=== PATIENT | female | born 1945 | race Caucasian/White ===

== ENCOUNTER → 2016-05-19 | Outpatient (CLI) | payer MEDICARE, OTHER ==
[~2016-05-19] MED LIST: AC500T PO; ACET-2041 PO; ACET325T49 PO; ACHD5005 PO; CHOL2000 PO; CHOL200035 PO; CYAN100053 IJ; CYCL10TA9 PO; DCS100C PO; EST.625T PO; EST45C VG; FLC1T PO; HDR10T PO; HSCO125 PO; HYDR-3454 PO; HYDR200T46 PO; IBP200T PO; IBP600T1 PO; IBUP-15 PO; KCL 10% PO; KCL10CCR PO; LD5PT TOP; MEGA RED 300 MG PO; METO50TA7 PO; MTX2.5T PO; NF-ESOM40C; NF-METANX PO; OMEP40CA36 PO; PANT40TA PO; POLY17PO23 PO; POTA20LI2 PO; POTA40LI PO; POTASSIUM; PRD5T PO; PROP1TAB77 PO; REMICADE IV; SIMV40TA2; TRIA1CAP PO; TRIA1TAB3 PO; VITAMIN B12; [UNRECOGNIZED DRUG - REMARK]
--- NOTE | 2016-05-19 17:33 | Diagnostic Imaging Report ---
Multiplanar multisequence MRI of the thoracic spine performed without intravenous contrast. INDICATION: Chronic back pain. FINDINGS: The alignment at the posterior spinal line is satisfactory. There is a prominent disc herniation seen at C6/C7 noted in the lower cervical spine and only included on the sagittal images. It probably results in moderate spinal canal stenosis without significant cord compression. This can be better evaluated with C-spine MRI if needed. In the thoracic spine, no vertebral body fracture is seen. No suspicious bone marrow lesion is noted. There is disc desiccation at all levels with no significant disc height loss at any level seen. At T2/T3 level, there is a right paracentral disc protrusion with no spinal canal stenosis. There is mild central disc herniation at T4/T5 level also without spinal canal stenosis. At T11/T12, there is a mild disc bulge with mild central canal stenosis reducing the AP dimension of the spinal canal to 9.9 mm. No spinal cord compression is seen, however. The neural foramina are patent. The spinal cord has normal caliber, contour and signal. IMPRESSION: Generally mild disc degenerative changes in the thoracic spine with mild spinal canal stenosis at T11/T12 level. No significant spinal canal stenosis is seen in the thoracic spine otherwise. There is suggestion of moderate spinal canal stenosis, however, seen at C6/C7 in the visualized portions of the lower cervical spine. Dictated by: Dictated on workstation # [id number]
== END ==
LOC: RAD 15:10
PROVIDERS: ATTEND Orthopaedic Surgery
DX: M54.6 Pain in thoracic spine (principal)
CPT/HCPCS: 72146

== ENCOUNTER 2016-06-23 12:52 | Outpatient (RCR) | payer MEDICARE, OTHER | END 2016-06-25 13:50 | disposition home or self-care (01) | PROVIDERS: ATTEND Physician Assistant | DX: M54.6 Pain in thoracic spine (principal) ==

== ENCOUNTER → 2017-02-03 | Outpatient (CLI) | payer MEDICARE, OTHER ==
--- NOTE | 2017-02-04 20:01 | Diagnostic Imaging Report ---
Bilateral screening mammogram 2D views with tomosynthesis. The current study was also evaluated with a Computer Aided Detection (CAD) system. INDICATION: Screening. No current complaints stated on the questionnaire. COMPARISON: 02/03/16 FINDINGS: The breasts are composed of heterogeneously dense parenchyma which may decrease mammographic sensitivity. Allowing for technique and positional differences, no suspicious change is seen. IMPRESSION: No significant change. ACR BI-RADS Category 2: Benign findings. Result letter will be mailed to the patient. Note: At least 10% of breast cancer is not imaged by mammography. Dictated by: Dictated on workstation # [id number]
== END ==
LOC: RAD 08:50
PROVIDERS: ATTEND Internal Medicine
DX: Z12.31 Encounter for screening mammogram for malignant neoplasm of breast (principal)
CPT/HCPCS: 77067

== ENCOUNTER 2017-04-15 14:42 | Outpatient (CLI) | payer MEDICARE, OTHER ==
[~2017-04-15] VITALS: Ht 156.2 cm; Wt 63.5 kg
[2017-04-15 15:58] VITALS: BP 150/80
[2017-04-15] MEDS ORDERED: DEXAMETHASONE 10 MG/ML (DECADRON) 1 ML VIAL ONE (16:03)
[2017-04-15 16:28] VITALS: BP 163/83
--- NOTE | 2017-04-17 04:15 | OPERATIVE REPORT ---
DATE OF SERVICE: 04/15/2017 DIAGNOSIS: Thoracic radiculopathy. PROCEDURE: Fluoroscopic guidance of thoracic epidural steroid injection, T7-T8. PROCEDURE IN DETAIL: After obtaining informed consent from the patient, the patient's chart was reviewed. The patient was then brought to the procedure room and placed in prone position, timeout was performed. The upper back was prepped with antiseptic solution and under fluoro guidance, patient's T7-T8 region was identified. The T7-T8 vertebral body was identified with fluoro guidance and approximately 2 mL of 1.5% lidocaine solution was used to anesthetize the skin down to the pedicle and under fluoro guidance using a 22-guage 3-1/2 inch spinal needle, this tract was anesthetized all way from the pedicle down to the intralaminar space in between T7 and T8. After this tract was anesthetized, then a 20-guage Tuohy was used and involved the same tract. Using a loss of resistance syringe, the Tuohy was then directed into the epidural space under fluoro guidance. Upon obtaining loss of resistance, the syringe was exchanged for a syringe containing radiopaque dye and secondary identification of the epidural space was then obtained. At this point, the syringe was then exchanged for a syringe containing 10 mL of dexamethasone and this was injected into the epidural space, washout was identified under fluoroscopy. Needle was then flushed with the normal saline from the loss of resistance, approximately 0.5 mL and then needle removed. Bandages were applied to all procedure sites. The patient tolerated procedure well and was taken to the recovery room in stable condition. COMPLICATIONS: None. Job ID: [id number] DocumentID: [id number] Dictated Date: 04/16/2017 19:18:13 Bridge/Structure Inspection Team Leader Date: 04/17/2017 04:14:51 Dictated By: MARGUERITE FOUNTAIN DO
== END 2017-04-15 16:29 ==
LOC: CARD 14:42
PROVIDERS: ATTEND Pain Medicine Interventional Pain Medicine
DX: M54.14 Radiculopathy, thoracic region (principal)
CPT/HCPCS: 62321

== ENCOUNTER → 2018-01-11 | Outpatient (CLI) | payer MEDICARE, OTHER ==
--- NOTE | 2018-01-11 13:23 | Diagnostic Imaging Report ---
INDICATION: Screening. TECHNIQUE: Screening digital mammography was performed bilaterally with a Computer Aided Detection (CAD) system. 3D tomosynthesis was also performed and reviewed. COMPARISON: 02/03/2017 back through 08/20/2011. FINDINGS: There are scattered fibroglandular densities bilaterally. There are vascular benign type calcifications. There is no dominant mass, spiculated lesion, or suspicious calcification identified. The skin, nipples, and axillae are unremarkable. IMPRESSION: Benign findings. ACR BI-RADS Category 2: Benign findings. Result letter will be mailed to the patient. Note: At least 10% of breast cancer is not imaged by mammography. Dictated by: Dictated on workstation # [id number]
== END ==
LOC: RAD 09:21
PROVIDERS: ATTEND Nurse Practitioner
DX: Z12.31 Encounter for screening mammogram for malignant neoplasm of breast (principal)
CPT/HCPCS: 77067

== ENCOUNTER 2018-04-08 12:03 | Outpatient (CLI) | payer MEDICARE, OTHER ==
[~2018-04-08] VITALS: Ht 156.2 cm; Wt 63.5 kg
[2018-04-08 12:20] VITALS: BP 160/73
[2018-04-08] MEDS ORDERED: NS W/KCL 40 MEQ/L 1,000 ML IV SCH (12:30)
[2018-04-08] MEDS ORDERED: NS W/KCL 20 MEQ/L 1,000 ML IV ONE ×2 (12:33→12:45)
[2018-04-08] MEDS ORDERED: NS W/KCL 20 MEQ/L 1,000 ML IV SCH (12:45)
== END 2018-04-08 15:15 | disposition home or self-care (01) ==
LOC: SDC 12:03
PROVIDERS: ATTEND Physician Assistant
DX: E87.6 Hypokalemia (principal); R51 Headache

== ENCOUNTER → 2018-04-08 | Outpatient (CLI) | payer MEDICARE, OTHER ==
--- NOTE | 2018-04-08 11:40 | Diagnostic Imaging Report ---
PROCEDURE: CT head without contrast. TECHNIQUE: Multiple contiguous axial images were obtained through the brain without the use of intravenous contrast. INDICATION: Left-sided headache. COMPARISON: Comparison is made with prior head CT from 07/07/2010. FINDINGS: Ventricles and sulci are within normal limits. No sulcal effacement, midline shift or hemorrhage is seen. There is periventricular hypodensity noted consistent with chronic microvascular ischemia. Cisterns are patent. Visualized paranasal sinuses are clear. IMPRESSION: Changes of chronic microvascular ischemia. No acute intracranial process is detected. Dictated by: Dictated on workstation # [id number]
[2018-04-08 11:47] LABS: HEMOGLOBIN 13.6 G/DL (11.5-16.0); MEAN PLATELET VOLUME 9.5 FL (7.4-10.4); RED BLOOD COUNT 4.16 10^6/uL (4.35-5.85); WHITE BLOOD COUNT 6.6 10^3/uL (4.3-11.0)
[2018-04-08 12:04] LABS: ALANINE AMINOTRANSFERASE 36 U/L (0-55); ALBUMIN 4.4 GM/DL (3.2-4.5); ALKALINE PHOSPHATASE 39 U/L (40-136); BILIRUBIN,TOTAL 0.6 MG/DL (0.1-1.0); BUN/CREATININE RATIO 11; CALCIUM 9.9 MG/DL (8.5-10.1); CARBON DIOXIDE 25 MMOL/L (21-32); CHLORIDE 92 MMOL/L (98-107); CREATININE SERUM 0.76 MG/DL (0.60-1.30); GFR ESTIMATED > 60; GLUCOSE 96 MG/DL (70-105); POTASSIUM 3.1 MMOL/L (3.6-5.0); SODIUM 129 MMOL/L (135-145); TOTAL PROTEIN 7.2 GM/DL (6.4-8.2)
== END ==
LOC: RAD 11:15
PROVIDERS: ATTEND Physician Assistant
DX: I67.82 Cerebral ischemia (principal); I77.89 Other specified disorders of arteries and arterioles
CPT/HCPCS: 36415; 70450; 80053; 85027; 85652; 86141

== ENCOUNTER 2018-10-05 10:17 | Outpatient (CLI) | payer MEDICARE, OTHER ==
[~2018-10-05] VITALS: Ht 156.2 cm; Wt 63.5 kg
[2018-10-05 10:30] VITALS: BP 121/81
[2018-10-05] MEDS ORDERED: NS IV 1000 ML 1,000 ML ONE (10:41)
[2018-10-05] MEDS ORDERED: NS IV 1000 ML 1,000 ML IV ONE (14:00)
== END 2018-10-05 13:20 | disposition home or self-care (01) ==
LOC: SDC 10:17
PROVIDERS: ATTEND Nurse Practitioner
DX: E87.1 Hypo-osmolality and hyponatremia (principal)
CPT/HCPCS: 96360; 96361

== ENCOUNTER 2018-12-14 09:11 | Outpatient (RCR) | payer MEDICARE, OTHER | END 2018-12-19 | disposition home or self-care (01) | PROVIDERS: ATTEND Internal Medicine | DX: M54.6 Pain in thoracic spine (principal); M62.830 Muscle spasm of back ==

== ENCOUNTER → 2019-01-17 | Outpatient (CLI) | payer MEDICARE, OTHER ==
--- NOTE | 2019-01-17 18:34 | Diagnostic Imaging Report ---
EXAMINATION: Digital mammogram bilateral screening. The current study was also evaluated with a Computer Aided Detection (CAD) system. 3-D tomosynthesis was also performed and reviewed. INDICATION: Screening. This study was compared to the prior exams of 01/11/2018, 02/03/2017, and 02/03/2016. At this time, there are no current complaints. FINDINGS: The fibroglandular tissue in both breasts is heterogeneously dense. This does limit the sensitivity of this exam. Overall, there does not appear to have been any significant change when compared to the prior study. No primary or secondary sign of malignancy is noted. 3D tomographic images fail to show any sign of malignancy. IMPRESSION: There is no radiographic evidence for malignancy. ACR BI-RADS Category 1: Negative. Result letter will be mailed to the patient. Note: At least 10% of breast cancer is not imaged by mammography. Dictated by: Dictated on workstation # [id number]
== END ==
LOC: RAD 09:27
PROVIDERS: ATTEND Physician Assistant
DX: Z12.31 Encounter for screening mammogram for malignant neoplasm of breast (principal)
CPT/HCPCS: 77067

== ENCOUNTER 2019-02-28 13:55 | Outpatient (RCR) | payer MEDICARE, OTHER | END 2019-03-20 | disposition home or self-care (01) | PROVIDERS: ATTEND Internal Medicine | DX: M62.89 Other specified disorders of muscle (principal); M54.6 Pain in thoracic spine ==

== ENCOUNTER → 2019-06-20 | Outpatient (RCR) | payer MEDICARE, OTHER | END | disposition home or self-care (01) | PROVIDERS: ATTEND Internal Medicine | DX: M54.6 Pain in thoracic spine (principal) ==

== ENCOUNTER 2019-09-18 12:58 | Outpatient (RCR) | payer MEDICARE, OTHER | END 2019-10-02 | disposition home or self-care (01) | PROVIDERS: ATTEND Internal Medicine | DX: M54.6 Pain in thoracic spine (principal); M06.9 Rheumatoid arthritis, unspecified; J84.10 Pulmonary fibrosis, unspecified; I10 Essential (primary) hypertension ==

== ENCOUNTER 2019-12-27 10:45 | Outpatient (RCR) | payer MEDICARE, OTHER | END 2020-01-15 | disposition home or self-care (01) | PROVIDERS: ATTEND Internal Medicine | DX: M54.6 Pain in thoracic spine (principal); M06.9 Rheumatoid arthritis, unspecified; J84.10 Pulmonary fibrosis, unspecified; I10 Essential (primary) hypertension ==

== ENCOUNTER → 2020-02-07 | Outpatient (CLI) | payer MEDICARE, OTHER ==
--- NOTE | 2020-02-07 12:15 | Diagnostic Imaging Report ---
EXAMINATION: Digital mammogram bilateral screening with CAD. INDICATION: Screening. COMPARISON: This study was compared to the prior exams of 01/17/2019, 01/11/2018, and 02/03/2017. PERSONAL HISTORY: At this time, there are no current complaints. FINDINGS: The fibroglandular tissue in both breasts is heterogeneously dense. This does limit the sensitivity of this exam. Overall, there does not appear to have been any significant change when compared to the prior study. No primary or secondary sign of malignancy is noted. IMPRESSION: There is no radiographic evidence for malignancy. ACR BI-RADS Category 1: Negative. Result letter will be mailed to the patient. Note: At least 10% of breast cancer is not imaged by mammography. Dictated by: Dictated on workstation # [id number]
== END ==
LOC: RAD 09:58
PROVIDERS: ATTEND Internal Medicine
DX: Z12.31 Encounter for screening mammogram for malignant neoplasm of breast (principal)
CPT/HCPCS: 77063; 77067

== ENCOUNTER → 2020-06-11 | Outpatient (CLI) | payer MEDICARE, OTHER ==
--- NOTE | 2020-06-11 10:15 | Diagnostic Imaging Report ---
INDICATION: 74-year-old postmenopausal female. COMPARISON: 04/08/2007 FINDINGS: AP Spine L1-L4: [BMD (g/cm2): 1.003] [T-Score: -1.6] [Z-Score: 0.1] [BMD Previous: 1.113] [BMD % Change: -9.9] LT Hip Neck: [BMD (g/cm2): 1.020] [T-Score: -0.1] [Z-Score: 1.8] LT Hip Total: [BMD (g/cm2):0.985] [T-Score:-0.2] [Z-Score: 1.6] [BMD Previous: 1.063] [BMD % Change: -7.3] RT Hip Neck: [BMD (g/cm2):1.068] [T-Score:0.2] [Z-Score:2.2] RT Hip Total: [BMD (g/cm2):1.032] [T-score:0.2] [Z-Score:2.0] [BMD Previous:1.065] [BMD % Change:-3.1] *Indicates significant change from prior examination based on 95% confidence level. World Health Organization criteria for BMD interpretation classify patients as Normal (T-score at or above -1.0), Osteopenic (T-score between -1.0 and -2.5) or Osteoporotic (T-score at or below -2.5). LIMITATIONS AND MODIFICATION: None. IMPRESSION: 1. Osteopenia (Low bone mass). 2. No significant change in bone mineral density since prior examination. 3. See below National Osteoporosis Foundation guidelines on when to potentially initiate pharmacologic therapy. Based on the National Osteoporosis Foundation Guidelines, pharmacologic treatment should be initiated in any of the following, unless clinical conditions suggest otherwise: * Any patient with prior fragility fracture of the hip or vertebrae. A spine fracture indicates 5X risk for subsequent spine fracture and 2X risk for subsequent hip fracture. * Osteoporosis (T-score <-2.5). * Postmenopausal women and men age 50 and older with low bone mass/osteopenia (T-score between -1.0 and -2.5) by DXA and 10-year major osteoporotic fracture greater than 20% or a 10-year probability of hip fracture greater than 3%. These fracture risks are supplied above in the FRAX score, if applicable. * Clinician judgement and/or patient preferences may indicate treatment for people with 10-year fracture probabilities above or below these levels. Dictated by: Dictated on workstation # [id number]
== END ==
LOC: RAD 08:30
PROVIDERS: ATTEND Internal Medicine
DX: M85.89 Other specified disorders of bone density and structure, multiple sites (principal); Z78.0 Asymptomatic menopausal state
CPT/HCPCS: 77080

== ENCOUNTER → 2020-08-19 | Outpatient (CLI) | payer MEDICARE, OTHER ==
[~2020-08-19] MED LIST changes: +CATHETER FLUSH 10 ML SYR IV PRN; +HOLD METFORMIN - RECEIVED CONTRAST 20 ML VIAL IV SCH; +IOHEXOL 350 MG/ML 100 ML (OMNIPAQUE 350) VIAL IV ONE; +NS 100 ML (IVPB) BAG IV ONE
[2020-08-19 16:49] LABS: MEAN PLATELET VOLUME 9.6 fL (9.0-12.2); WHITE BLOOD COUNT 8.4 10^3/uL (4.3-11.0)
[2020-08-19 17:02] LABS: ALBUMIN 4.4 GM/DL (3.2-4.5); POTASSIUM 4.3 MMOL/L (3.6-5.0)
[2020-08-19 17:04] LABS: TOTAL PROTEIN 8.5 GM/DL (6.4-8.2)
[2020-08-19 17:06] LABS: BILIRUBIN,TOTAL 0.6 MG/DL (0.1-1.0)
[2020-08-19 17:08] LABS: CREATININE SERUM 0.93 MG/DL (0.60-1.30)
--- NOTE | 2020-08-19 19:14 | Diagnostic Imaging Report ---
EXAMINATION: CT ABDOMEN/PELVIS W. TECHNIQUE: Multiple contiguous axial images were obtained through the abdomen and pelvis after administration of intravenous contrast. All CT scans use one or more of the following dose optimizing techniques: automated exposure control, MA and/or KvP adjustment based on patient size and exam type or iterative reconstruction. INDICATION: Abdominal pain, nausea and diarrhea. COMPARISON: 10/21/2012 FINDINGS: Lower chest: Progression of subpleural reticulations with bronchiectasis indicative of pulmonary fibrosis. Peritoneum: No free intraperitoneal air or fluid. Liver and biliary system: Diffuse hypoattenuation of the liver is indicative of hepatic steatosis. No focal hepatic lesion. Cholecystectomy. No pathologic biliary duct dilatation. Spleen and Pancreas: Spleen is normal. The pancreas enhances normally without mass lesion or peripancreatic inflammatory changes. Adrenals: Normal. tract: The kidneys enhance normally without suspicious mass or obstruction. Urinary bladder is distended without wall thickening. No renal or ureteral stones. Status post hysterectomy. GI tract: Stomach is decompressed. No bowel obstruction. No pericolonic inflammatory changes. Appendectomy. Vasculature and Lymph nodes: Normal caliber aorta without dissection. No abdominal or pelvic lymphadenopathy. Musculoskeletal: No concerning osseous lesion. Severe osteoarthritis of the hips. IMPRESSION: 1. No acute obstructive or inflammatory process in abdomen or pelvis. 2. Diffuse hepatic steatosis. 3. Progression in pulmonary fibrosis since 2013 exam. Dictated by: Dictated on workstation # [id number]
== END ==
LOC: RAD 16:16
PROVIDERS: ATTEND Physician Assistant
DX: K76.0 Fatty (change of) liver, not elsewhere classified (principal); J84.10 Pulmonary fibrosis, unspecified
CPT/HCPCS: 36415; 74177; 80053; 83690; 85027; 86141

== ENCOUNTER → 2021-02-10 | Outpatient (CLI) | payer MEDICARE, OTHER ==
[~2021-02-10] MED LIST changes: -CATHETER FLUSH 10 ML SYR IV PRN; -HOLD METFORMIN - RECEIVED CONTRAST 20 ML VIAL IV SCH; -IOHEXOL 350 MG/ML 100 ML (OMNIPAQUE 350) VIAL IV ONE; -NS 100 ML (IVPB) BAG IV ONE
--- NOTE | 2021-02-10 12:34 | Diagnostic Imaging Report ---
INDICATION: Routine screening.. COMPARISON: 02/07/2020 and 01/17/2019. TECHNIQUE: 2D and 3D bilateral screening mammography was performed with CAD. FINDINGS: Both breasts are heterogeneously dense, limiting the sensitivity of mammography. No mass or malignant-appearing microcalcifications are seen. There are scattered benign-appearing parenchymal and vascular calcifications. The axillae are unremarkable. IMPRESSION: No mammographic features suspicious for malignancy are identified. ACR BI-RADS Category 2: Benign findings. Result letter will be mailed to the patient. Note: At least 10% of breast cancer is not imaged by mammography. Dictated by: Dictated on workstation # [id number]
== END ==
LOC: RAD 10:07
PROVIDERS: ATTEND Internal Medicine
DX: Z12.31 Encounter for screening mammogram for malignant neoplasm of breast (principal)
CPT/HCPCS: 77063; 77067

== ENCOUNTER → 2021-06-23 | Outpatient (CLI) | payer MEDICARE, OTHER ==
[~2021-06-23] MED LIST changes: +ACET-93 PO; +BREO ELLIPTA; +CALC-140 PO; +CATHETER FLUSH 10 ML SYR IV PRN; +CNC1KV IM; +HOLD METFORMIN - RECEIVED CONTRAST 20 ML VIAL IV SCH; +HUMIRA; +IOHEXOL 350 MG/ML 100 ML (OMNIPAQUE 350) VIAL IV ONE; +NS 100 ML (IVPB) BAG IV ONE; +OMEP40CA6 PO; +PREG100C55 PO; +RT-ALBUINH IH; +SPIR25TA5 PO; +VITAMIN D3; +VITAMIN E
[2021-06-23 12:15] LABS: HEMATOCRIT 47 % (35-52); HEMOGLOBIN 15.1 g/dL (11.5-16.0); MEAN CORPUSCULAR HEMOGLOBIN 31 pg (25-34); MEAN CORPUSCULAR HGB CONC 32 g/dL (32-36); MEAN CORPUSCULAR VOLUME 98 fL (80-99); MEAN PLATELET VOLUME 9.7 fL (9.0-12.2); PLATELET COUNT 298 10^3/uL (130-400); WHITE BLOOD COUNT 5.5 10^3/uL (4.3-11.0)
[2021-06-23 12:19] LABS: ALBUMIN 4.4 GM/DL (3.2-4.5); POTASSIUM 4.1 MMOL/L (3.6-5.0)
[2021-06-23 12:21] LABS: CALCIUM 10.3 MG/DL (8.5-10.1)
[2021-06-23 12:22] LABS: TOTAL PROTEIN 8.5 GM/DL (6.4-8.2)
[2021-06-23 12:24] LABS: BILIRUBIN,TOTAL 0.5 MG/DL (0.1-1.0)
[2021-06-23 12:26] LABS: CREATININE SERUM 1.35 MG/DL (0.60-1.30)
[2021-06-23 12:35] LABS: ERYTHROCYTE SEDIMENTATION RATE 19 MM/HR (0-30)
--- NOTE | 2021-06-23 13:15 | Diagnostic Imaging Report ---
PROCEDURE: CT abdomen and pelvis with contrast. TECHNIQUE: Multiple contiguous axial images were obtained through the abdomen and pelvis after administration of intravenous contrast. Auto Exposure Controls were utilized during the CT exam to meet ALARA standards for radiation dose reduction. All CT scans use one or more of the following dose optimizing techniques: automated exposure control, MA and/or KvP adjustment based on patient size and exam type or iterative reconstruction. DATE: June 23, 2021. COMPARISON: CT abdomen and pelvis August 19, 2020. INDICATION: 75-year-old female, abdominal pain, nausea, vomiting. FINDINGS: There is right lower lobe and left lower lobe bronchiectasis. There are peripheral reticular lung opacities and additional linear opacities in the lungs. These findings are consistent with interstitial lung disease. There is no peripheral honeycombing. The heart is not enlarged. There is no pericardial effusion. There is diffuse fatty infiltration of the liver. The outer liver contours are not nodular. There is no identified liver lesion. The main, right, and left portal veins are patent. The gallbladder is surgically absent. There is no intrahepatic or extrahepatic bile duct dilation. The main pancreatic duct is not abnormally dilated. Unremarkable appearance of the pancreatic parenchyma. The spleen is normal in size. The adrenal glands are unremarkable. There is a low-attenuation left renal lesion on axial image 71 which measures 8 mm in size. This is too small to characterize. The urinary collecting systems are not distended. There is no identified renal or ureteral stone. Urinary bladder is unremarkable. There is mucosal enhancement contiguously extending from the level of the rectum to the transverse colon. There is a small hiatal hernia. There is mild wall thickening and mucosal enhancement of small bowel. There is no free intraperitoneal air. There is no drainable fluid collection. There is no free fluid in the abdomen or pelvis. There are atherosclerotic calcifications. There is no identified abnormally enlarged lymph node in the abdomen or pelvis meeting CT size criteria for adenopathy. There are multilevel degenerative changes of the spine. There is no identified acute bony abnormality. There is a lumbar levoscoliosis. The sacroiliac joints are unremarkable in appearance. IMPRESSION: CT ABDOMEN AND PELVIS. 1. Long segment contiguous mucosal enhancement extending from the level of the rectum to the transverse colon as well as additional mucosal enhancement and mild wall thickening of small bowel. This most likely reflects an infectious or inflammatory colitis and enteritis. 2. Diffuse fatty infiltration of the liver. 3. Small hiatal hernia. 4. Findings of interstitial lung disease. Dictated by: Dictated on workstation # [id number]
== END ==
LOC: RAD 11:49
PROVIDERS: ATTEND Nurse Practitioner Family
DX: K76.0 Fatty (change of) liver, not elsewhere classified (principal); K44.9 Diaphragmatic hernia without obstruction or gangrene; J84.9 Interstitial pulmonary disease, unspecified
CPT/HCPCS: 36415; 74177; 80053; 85027; 85652

== ENCOUNTER 2021-06-24 12:35 | Outpatient (CLI) | payer MEDICARE, OTHER ==
[~2021-06-24 12:35] MED LIST changes: -ACET-93 PO; -BREO ELLIPTA; -CALC-140 PO; -CATHETER FLUSH 10 ML SYR IV PRN; -CNC1KV IM; -HOLD METFORMIN - RECEIVED CONTRAST 20 ML VIAL IV SCH; -HUMIRA; -IOHEXOL 350 MG/ML 100 ML (OMNIPAQUE 350) VIAL IV ONE; -NS 100 ML (IVPB) BAG IV ONE; -OMEP40CA6 PO; -PREG100C55 PO; -RT-ALBUINH IH; -SPIR25TA5 PO; -VITAMIN D3; -VITAMIN E
[2021-06-24] MEDS ORDERED: NS IV 1000 ML 1,000 ML ONE (12:52)
[2021-06-24] MEDS ORDERED: NS IV 1000 ML 1,000 ML IV ONE (13:15)
[2021-06-24] MEDS ORDERED: ACET-93 PO (18:16)
[2021-06-24] MEDS ORDERED: CNC1KV IM (18:16)
[2021-06-24] MEDS ORDERED: OMEP40CA6 PO (18:16)
[2021-06-24] MEDS ORDERED: METO50TA7 PO (18:16)
[2021-06-24] MEDS ORDERED: PREG100C55 PO ×2 (18:24)
[2021-06-24] MEDS ORDERED: SPIR25TA5 PO (18:24)
[2021-06-24] MEDS ORDERED: HUMIRA (18:26)
[2021-06-24] MEDS ORDERED: CALC-140 PO (19:38)
[2021-06-24] MEDS ORDERED: VITAMIN E (19:38)
[2021-06-24] MEDS ORDERED: RT-ALBUINH IH (19:38)
[2021-06-24] MEDS ORDERED: BREO ELLIPTA (19:38)
[2021-06-24] MEDS ORDERED: VITAMIN D3 (19:38)
== END 2021-06-24 14:17 | disposition home or self-care (01) ==
LOC: SDC 12:35
PROVIDERS: ATTEND Nurse Practitioner Family
DX: E86.0 Dehydration (principal)
CPT/HCPCS: 96360

== ENCOUNTER → 2021-06-30 | Outpatient (CLI) | payer MEDICARE, OTHER ==
[~2021-06-30] MED LIST changes: +ACET-93 PO; +BREO ELLIPTA; +CALC-140 PO; +CNC1KV IM; +HUMIRA; +OMEP40CA6 PO; +PREG100C55 PO; +RT-ALBUINH IH; +SPIR25TA5 PO; +VITAMIN D3; +VITAMIN E
--- NOTE | 2021-06-30 13:09 | Diagnostic Imaging Report ---
CLINICAL INDICATION: Patient with abdominal pain. EXAM: X-ray of the abdomen with multiple supine and upright views. FINDINGS: There is a nonobstructed bowel gas pattern. There is no evidence of abdominal free air. There is no significant stool load seen. Surgical clips are seen overlying the right upper quadrant, which could be related to cholecystectomy changes. There are no focal calcifications overlying the expected regions/ pathways of both kidneys, ureters, and bladder regions. Phleboliths are again noted in the pelvis. There is left curvature of the lumbar spine. There are degenerative spurs involving the lumbar spine. There is spurring of the right hip. IMPRESSION: There is no radiographic evidence for acute abdominal/ pelvic process or urinary tract stones. There is no significant stool load. Results of this report were discussed with Dr. Mushtaq Snyder via the telephone on 06/30/2021 at 1305 hours. Dictated by: Dictated on workstation # [id number]
== END ==
LOC: RAD 11:54
PROVIDERS: ATTEND Internal Medicine
DX: R10.9 Unspecified abdominal pain (principal)
CPT/HCPCS: 74019

== ENCOUNTER → 2021-07-18 | Outpatient (CLI) | payer MEDICARE, OTHER ==
[~2021-07-18] MED LIST changes: +NS IV 1000 ML 1,000 ML IV SCH; +NS IV 1000 ML 1,000 ML ONE
[2021-07-18 13:40] VITALS: BP 130/61
== END ==
LOC: SDC 13:23
PROVIDERS: ATTEND Nurse Practitioner Family
DX: E86.0 Dehydration (principal)

== ENCOUNTER → 2021-07-29 | Outpatient (CLI) | payer MEDICARE, OTHER ==
[~2021-07-29] MED LIST changes: +CATHETER FLUSH 10 ML SYR IV PRN; +HOLD METFORMIN - RECEIVED CONTRAST 20 ML VIAL IV SCH; +IOHEXOL 350 MG/ML 100 ML (OMNIPAQUE 350) VIAL IV ONE; +NS 100 ML (IVPB) BAG IV ONE; -NS IV 1000 ML 1,000 ML IV SCH; -NS IV 1000 ML 1,000 ML ONE
--- NOTE | 2021-07-29 11:14 | Diagnostic Imaging Report ---
PROCEDURE: CT abdomen and pelvis with contrast. TECHNIQUE: Multiple contiguous axial images were obtained through the abdomen and pelvis after administration of intravenous contrast. Auto Exposure Controls were utilized during the CT exam to meet ALARA standards for radiation dose reduction. All CT scans use one or more of the following dose optimizing techniques: automated exposure control, MA and/or KvP adjustment based on patient size and exam type or iterative reconstruction. INDICATION: Abdominal pain with colitis. COMPARISON: 06/23/2021. FINDINGS: Coronary artery calcifications and prominent chronic pulmonary interstitial markings are noted in the lower chest. Below the diaphragm, note is again made of low-density throughout the liver indicating steatosis. Gallbladder is surgically absent without biliary ductal dilatation. No pancreatic, adrenal gland or splenic abnormality is identified. Kidneys are stable and unremarkable with an approximately 1 cm cyst in the lower pole of the left kidney. There is now moderate amount of stool throughout the right colon. Mural thickening within the colon and small bowel is decreased compared to the previous examination. Unenhanced images of the urinary bladder are unremarkable. There may be mild mural thickening at this level of stomach although this is stable. There is lumbar spondylosis. IMPRESSION: Hepatic steatosis with development of probable constipation involving primarily the right colon. Otherwise, there does appear to be decrease in mural thickening and enhancement throughout the small and large bowel with possible mild residual gastritis. Dictated by: Dictated on workstation # [id number]
== END ==
LOC: RAD 11:00
PROVIDERS: ATTEND Nurse Practitioner Family
DX: K76.0 Fatty (change of) liver, not elsewhere classified (principal); A09 Infectious gastroenteritis and colitis, unspecified
CPT/HCPCS: 74177

== ENCOUNTER → 2021-12-03 | Outpatient (CLI) | payer MEDICARE, OTHER ==
[~2021-12-03] MED LIST changes: -CATHETER FLUSH 10 ML SYR IV PRN; -HOLD METFORMIN - RECEIVED CONTRAST 20 ML VIAL IV SCH; -IOHEXOL 350 MG/ML 100 ML (OMNIPAQUE 350) VIAL IV ONE; -NS 100 ML (IVPB) BAG IV ONE
--- NOTE | 2021-12-03 18:08 | Diagnostic Imaging Report ---
INDICATION: Dyspnea, CHF. EXAMINATION: Two-view chest 12/03/2021 COMPARISON: 08/22/2015. FINDINGS: Coarsened interstitial markings noted throughout both lungs which could be due to chronic underlying interstitial disease. A component of mild edema not excluded. Pulmonary vasculature slightly prominent. Heart is normal. There are no infiltrates. No effusions. No pneumothorax. IMPRESSION: 1. Diffuse coarsened interstitial markings likely chronic in nature although superimposed mild edema not excluded. Dictated by: Dictated on workstation # [id number]
== END ==
LOC: RAD 14:57
PROVIDERS: ATTEND Nurse Practitioner Family
DX: I50.9 Heart failure, unspecified (principal)
CPT/HCPCS: 71046

== ENCOUNTER → 2022-02-16 | Outpatient (CLI) | payer MEDICARE, OTHER ==
[~2022-02-16] MED LIST changes: +ALBU8.5H6 IH; -RT-ALBUINH IH
--- NOTE | 2022-02-16 14:50 | Diagnostic Imaging Report ---
INDICATION: Routine screening. COMPARISON: 02/03/2016 and 01/29/2015. TECHNIQUE: 2D and 3D bilateral screening mammography was performed with CAD. FINDINGS: Scattered fibroglandular densities are identified bilaterally. Benign parenchymal and vascular calcifications are noted bilaterally. No mass or malignant appearing microcalcifications are seen. The axillae are unremarkable. IMPRESSION: No mammographic features suspicious for malignancy are identified. ACR BI-RADS Category 2: Benign findings. Result letter will be mailed to the patient. Note: At least 10% of breast cancer is not imaged by mammography. Dictated by: Dictated on workstation # [id number]
== END ==
LOC: RAD 09:51
PROVIDERS: ATTEND Internal Medicine
DX: Z12.31 Encounter for screening mammogram for malignant neoplasm of breast (principal)
CPT/HCPCS: 77063; 77067

== ENCOUNTER 2022-03-18 20:52 | Observation (INO) | payer MEDICARE, OTHER ==
[~2022-03-18] VITALS: Ht 155 cm; Wt 71.0 kg
[2022-03-18 21:12] LABS: BASOPHILS % (AUTO) 0 % (0-10); EOSINOPHILS % (AUTO) 1 % (0-10); HEMATOCRIT 43 % (35-52); HEMOGLOBIN 14.1 g/dL (11.5-16.0); LYMPHOCYTES # (AUTO) 1.7 10^3/uL (1.0-4.0); LYMPHOCYTES % (AUTO) 21 % (12-44); MEAN CORPUSCULAR HEMOGLOBIN 33 pg (25-34); MEAN CORPUSCULAR HGB CONC 33 g/dL (32-36); MEAN CORPUSCULAR VOLUME 102 fL (80-99); MEAN PLATELET VOLUME 10.5 fL (9.0-12.2); MONOCYTES # (AUTO) 0.7 10^3/uL (0.0-1.0); MONOCYTES % (AUTO) 8 % (0-12); NEUTROPHILS # (AUTO) 5.6 10^3/uL (1.8-7.8); NEUTROPHILS % (AUTO) 68 % (42-75); PLATELET COUNT 235 10^3/uL (130-400); WHITE BLOOD COUNT 8.2 10^3/uL (4.3-11.0)
--- NOTE | 2022-03-18 21:27 | Diagnostic Imaging Report ---
EXAMINATION: Chest 1 view. HISTORY: Weakness. Cough. COMPARISON: 12/03/2021. FINDINGS: Patchy bibasilar opacities are seen. There are scattered prominent interstitial markings throughout the lungs. Stable prominent cardiac silhouette. No large pleural effusion or pneumothorax. IMPRESSION: Findings suggestive of interstitial edema which may be superimposed on chronic fibrotic changes. Patchy bibasilar opacities may also represent atelectasis. Dictated by: Dictated on workstation # [id number]
[2022-03-18 21:30] LABS: ALANINE AMINOTRANSFERASE 412 U/L (0-55); ALBUMIN 3.7 GM/DL (3.2-4.5); ALKALINE PHOSPHATASE 111 U/L (40-136); BILIRUBIN,TOTAL 0.8 MG/DL (0.1-1.0); BUN/CREATININE RATIO 17; CALCIUM 8.7 MG/DL (8.5-10.1); CARBON DIOXIDE 20 MMOL/L (21-32); CHLORIDE 99 MMOL/L (98-107); CREATININE SERUM 1.22 MG/DL (0.60-1.30); GFR ESTIMATED 45; GLUCOSE 91 MG/DL (70-105); MAGNESIUM 1.6 MG/DL (1.6-2.4); POTASSIUM 3.3 MMOL/L (3.6-5.0); SODIUM 133 MMOL/L (135-145)
[2022-03-18] MEDS ORDERED: ONDANSETRON 4 MG/2 ML (SDV) Z0FRAN IVP ONE (21:30)
[2022-03-18] MEDS ORDERED: IBUPROFEN 800 MG (MOTRIN) TAB PO ONE (21:30)
[2022-03-18] MEDS ORDERED: NS IV 1000 ML 1,000 ML IV SCH (21:30)
--- NOTE | 2022-03-18 21:30 | ED General ---
General Chief Complaint: Cough/Cold/Flu Symptoms Stated Complaint: WEAKNESS Nursing Triage Note: PT TO RM 7 VIA [facility] FROM HOME W C/O WEAKNESS. PT TESTED INFLUENZA A + THIS AM AT PCP OFFICE, REPORTS SHE GOT HOME FROM DR LYNCH AND HAD A HARD TIME GETTING OUT OF THE CAR. PT STATES WEAKNESS HAS GOTTEN WORSE THROUGHOUT THE DAY, ALSO C/O NAUSEA. PT A&OX4, WEARS NC AT 4L AT ALL TIMES. Source of Information: Patient Exam Limitations: No Limitations History of Present Illness Date Seen by Provider: Mar 18, 2022 Time Seen by Provider: 21:28 Initial Comments To ER by [facility] from home with reports of generalized weakness. She had a cough increased from baseline starting yesterday. She saw Dr. Hawley this morning tested positive for influenza. She was given a prescription for 80 mg Xofluza which she has taken. This evening she had generalized weakness such that she was unable to get up out of her bed. Intermittent nausea. She is oxygen dependent at 4 L per nasal cannula at home due to interstitial lung disease, she has rheumatoid arthritis and heart failure. She sees the heart failure clinic with Dr. Rivas at [facility] and is on Entresto and Bumex. Timing/Duration: 1-2 Days Severity: Moderate Associated Systoms: Chest Pain, Cough Allergies and Home Medications Allergies Coded Allergies: metoclopramide (Verified Allergy, Mild, 08/08/12) Erythromycin Base (Verified Allergy, Unknown, 08/08/12) morphine (Verified Allergy, Unknown, 08/08/12) Patient Home Medication List Home Medication List Reviewed: Yes Acetaminophen (Acetaminophen) 500 Mg Tablet, 1,000 MG PO HS, (Reported) Entered as Reported by: FOX ANDRE on 06/24/211815 Albuterol Sulfate (Ventolin Hfa) 1 Puff Puff, 2 PUFF IH Q4H, (Reported) Entered as Reported by: FOX ANDRE on 06/24/211937 Calcium Carbonate/Vitamin D3 (Calcium + Vitamin D Tablet) 1 Each Tablet, 1 EACH PO BID, (Reported) Entered as Reported by: FOX ANDRE on 06/24/211937 Cyanocobalamin (Cyanocobalamin Injection) 1,000 Mcg/Ml Inj, 1,000 MCG IM MONTHLY, (Reported) Entered as Reported by: FOX ANDRE on 06/24/211815 Metoprolol Succinate (Metoprolol Succinate) 50 Mg Tab.er.24h, 50 MG PO HS, (Reported) Entered as Reported by: FOX ANDRE on 06/24/211815 Omeprazole (Omeprazole) 40 Mg Capsule.dr, 40 MG PO BID, (Reported) Entered as Reported by: FOX ANDRE on 06/24/211815 Pregabalin (Pregabalin) 100 Mg Capsule, 100 MG PO DAILY, (Reported) Entered as Reported by: FOX ANDRE on 06/24/211823 Pregabalin (Pregabalin) 100 Mg Capsule, 200 MG PO HS, (Reported) Entered as Reported by: FOX ANDRE on 06/24/211823 Spironolactone (Spironolactone) 25 Mg Tablet, 25 MG PO DAILY, (Reported) Entered as Reported by: FOX ANDRE on 06/24/211823 [Breo Ellipta] Unknown Strength , Unknown Dose DAILY, (Reported) Entered as Reported by: FOX ANDRE on 06/24/211937 [Humira] Unknown Strength , Unknown Dose WEEK, (Reported) Entered as Reported by: FOX ANDRE on 06/24/211825 [Vitamin D3] Unknown Strength , Unknown Dose DAILY, (Reported) Entered as Reported by: FOX ANDRE on 06/24/211937 [Vitamin E] Unknown Strength , Unknown Dose DAILY, (Reported) Entered as Reported by: FOX ANDRE on 06/24/211937 Review of Systems Review of Systems Constitutional: see HPI, fever EENTM: see HPI Respiratory: see HPI, cough, short of breath Cardiovascular: no symptoms reported Genitourinary: no symptoms reported Musculoskeletal: no symptoms reported Skin: no symptoms reported Psychiatric/Neurological: No Symptoms Reported Hematologic/Lymphatic: No Symptoms Reported Immunological/Allergic: no symptoms reported Past Vozdimh-Nappjw-Glawlt Hx Patient Social History Tobacco Use?: No Use of E-Cig and/or Vaping dev: No Substance use?: No Alcohol Use?: No Immunizations Up To Date Influenza Vaccine Up-to-Date: Yes; Up-to-Date First/Initial COVID19 Vaccinat: UNK Second COVID19 Vaccination Barak: UNK Third COVID19 Vaccination Date: UNK 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: [employer] Seasonal Allergies Seasonal Allergies: No Past Medical History Reproductive Disorders: Yes Female Reproductive Disorders: Endometriosis, Ovarian Cyst Sexually Transmitted Disease: No HIV/AIDS: No Kidney Stones Gastroesophageal Reflux, Alcazar's Esophagus, Obstructive Bowel Fractures Adverse Reaction/Blood Tranf: No Family Medical History Cancer 03 FATHER, Onset:60 years & older ("Tumor between heart and lungs") Chest pain 09 SISTER, Onset:50's - 60 Congenital heart disease 09 SISTER, Onset:Pre- (Infant sister that at .) Family history: Arthritis 03 FATHER, Onset:50's - 60 Family history: Asthma 03 MOTHER, Onset:50's - 60 Family history: Cardiovascular disease 03 FATHER, Onset:Unknown 03 MOTHER, Onset:Unknown 09 SISTER, Onset:60 years & older Family history: Diabetes mellitus 03 FATHER, Onset:50's - 60 Family history: Hypertension 03 FATHER, Onset:40's - 50 03 MOTHER, Onset:40's - 50 09 SISTER, Onset:30's - 40 Heart disease 03 FATHER, Onset:40's - 50 03 MOTHER, Onset:40's - 50 09 SISTER, Onset:40's - 50 History of - respiratory disease 03 MOTHER, Onset:30's - 40 Myocardial infarction 09 SISTER, Onset:50's - 60 No Family History of: Abdominal aortic aneurysm Ilya's disease Alcoholism Aphasia Cancer of colon Cataract Congestive heart failure Cystic fibrosis Dementia Dysphagia Family history: Allergy Family history: Alzheimer's disease Family history: Breast disease Family history: Coronary thrombosis Family history: Gastrointestinal disease Family history: Glaucoma Family history: Osteoporosis Family history: Thyroid disorder Headache Hearing loss Hereditary disease History of - anemia History of - disorder History of drug abuse Human immunodeficiency virus (HIV) seropositivity Hypercholesterolemia Infertile Kidney disease Malignant neoplasm of lung Parkinson's disease Prostate cancer Psychotic disorder Seizure disorder Stroke Tuberculosis Visual impairment Heart Disease, CAD Over 55 Years Old Physical Exam Vital Signs Vital Signs - First Documented 03/18/22 20:53 Temp 38.0 Pulse 87 Resp 26 B/P (MAP) 93/75 (81) Pulse Ox 96 O2 Delivery Nasal Cannula O2 Flow Rate 4.00 Capillary Refill : Less Than 3 Seconds Height, Weight, BMI Height: 5'1.50" Weight: 140lbs. 0.0oz. 63.623885bf; 29.00 BMI Method:Stated General Appearance: No Apparent Distress, WD/WN, Other (Blood pressure little soft at 97/53) Eyes: Bilateral Eye Normal Inspection, Bilateral Eye PERRL, Bilateral Eye EOMI Neck: Full Range of Motion, Normal Inspection Respiratory: Normal Breath Sounds, No Accessory Muscle Use, No Respiratory Distress, Crackles, Other (96% on her baseline 4 L) Cardiovascular: Regular Rate, Rhythm, Normal Peripheral Pulses Gastrointestinal: Normal Bowel Sounds, Non Tender, Soft Extremity: Normal Capillary Refill, Normal Inspection Neurologic/Psychiatric: Alert, Oriented x3 Skin: Normal Color, Warm/Dry Progress/Results/Core Measures Suspected Sepsis SIRS Temperature: Pulse: 87 Respiratory Rate: 26 Laboratory Tests 03/18/22 21:00: White Blood Count 8.2 Blood Pressure 93 /75 Mean: 81 Laboratory Tests 03/18/22 21:00: Creatinine 1.22, Platelet Count 235, Total Bilirubin 0.8 Results/Orders Lab Results Laboratory Tests Test 03/18/22 21:00 03/18/22 22:40 Range/Units White Blood Count 8.2 4.3-11.0 10^3/uL Red Blood Count 4.23 3.80-5.11 10^6/uL Hemoglobin 14.1 11.5-16.0 g/dL Hematocrit 43 35-52 % Mean Corpuscular Volume 102 H 80-99 fL Mean Corpuscular Hemoglobin 33 25-34 pg Mean Corpuscular Hemoglobin Concent 33 32-36 g/dL Red Cell Distribution Width 14.2 10.0-14.5 % Platelet Count 235 130-400 10^3/uL Mean Platelet Volume 10.5 9.0-12.2 fL Immature Granulocyte % (Auto) 1 % Neutrophils (%) (Auto) 68 42-75 % Lymphocytes (%) (Auto) 21 12-44 % Monocytes (%) (Auto) 8 0-12 % Eosinophils (%) (Auto) 1 0-10 % Basophils (%) (Auto) 0 0-10 % Neutrophils # (Auto) 5.6 1.8-7.8 10^3/uL Lymphocytes # (Auto) 1.7 1.0-4.0 10^3/uL Monocytes # (Auto) 0.7 0.0-1.0 10^3/uL Eosinophils # (Auto) 0.0 0.0-0.3 10^3/uL Basophils # (Auto) 0.0 0.0-0.1 10^3/uL Immature Granulocyte # (Auto) 0.1 0.0-0.1 10^3/uL Sodium Level 133 L 135-145 MMOL/L Potassium Level 3.3 L 3.6-5.0 MMOL/L Chloride Level 99 98-107 MMOL/L Carbon Dioxide Level 20 L 21-32 MMOL/L Anion Gap 14 5-14 MMOL/L Blood Urea Nitrogen 21 H 7-18 MG/DL Creatinine 1.22 0.60-1.30 MG/DL Estimat Glomerular Filtration Rate 45 BUN/Creatinine Ratio 17 Glucose Level 91 70-105 MG/DL Calcium Level 8.7 8.5-10.1 MG/DL Corrected Calcium 8.9 8.5-10.1 MG/DL Magnesium Level 1.6 1.6-2.4 MG/DL Total Bilirubin 0.8 0.1-1.0 MG/DL Aspartate Amino Transf (AST/SGOT) 299 H 5-34 U/L Alanine Aminotransferase (ALT/SGPT) 412 H 0-55 U/L Alkaline Phosphatase 111 40-136 U/L Troponin I < 0.028 <0.028 NG/ML B-Type Natriuretic Peptide 51.6 <100.0 PG/ML Total Protein 7.0 6.4-8.2 GM/DL Albumin 3.7 3.2-4.5 GM/DL Thyroid Stimulating Hormone (TSH) 3.60 0.35-4.94 UIU/ML Urine Color YELLOW Urine Clarity CLEAR Urine pH 6.0 5-9 Urine Specific [place] 1.010 L 1.016-1.022 Urine Protein 1+ H NEGATIVE Urine Glucose (UA) NEGATIVE NEGATIVE Urine Ketones NEGATIVE NEGATIVE Urine Nitrite NEGATIVE NEGATIVE Urine Bilirubin NEGATIVE NEGATIVE Urine Urobilinogen 1.0 < = 1.0 MG/DL Urine Leukocyte Esterase NEGATIVE NEGATIVE Urine RBC (Auto) NEGATIVE NEGATIVE Urine RBC NONE /HPF Urine WBC RARE /HPF Urine Squamous Epithelial Cells 0-2 /HPF Urine Crystals NONE /LPF Urine Bacteria NEGATIVE /HPF Urine Casts NONE /LPF Urine Mucus SMALL H /LPF Urine Culture Indicated NO My Orders Orders - SONIA GARCIA HOG OPERATOR Cbc With Automated Diff (03/18/22 20:54) Comprehensive Metabolic Panel (03/18/22 20:54) Magnesium (03/18/22 20:54) Chest 1 View, Ap/Pa Only (03/18/22 20:54) Ed Iv/Invasive Line Start (03/18/22 20:54) Thyroid Stimulating Hormone (03/18/22 20:54) Troponin I [place] (03/18/22 20:54) Ekg Tracing (03/18/22 20:54) Ibuprofen Tablet (Motrin Tablet) (03/18/22 21:30) Ns Iv 1000 Ml (Sodium Chloride 0.9%) (03/18/22 21:30) Ua Culture If Indicated (03/18/22 21:20) Ondansetron Injection (Zofran Injectio (03/18/22 21:30) Bnp [place] (03/18/22 21:33) Straight Cath For Spec.-Adult (03/18/22 22:43) Medications Given in ED Current Medications Medications Dose Ordered Sig/Eusebia Route Start Time Stop Time Status Last Admin Dose Admin Ibuprofen 800 mg ONCE ONCE PO 03/18/22 21:30 03/18/22 21:31 DC 03/18/22 21:32 800 MG Ondansetron HCl 8 mg ONCE ONCE IVP 03/18/22 21:30 03/18/22 21:31 DC 03/18/22 21:32 8 MG Vital Signs/I&O 03/18/22 03/18/22 20:53 21:32 Temp 38.0 38.0 Pulse 87 Resp 26 B/P (MAP) 93/75 (81) Pulse Ox 96 O2 Delivery Nasal Cannula O2 Flow Rate 4.00 Capillary Refill : Less Than 3 Seconds Blood Pressure Mean: 81 Departure Communication (Admissions) 2255-blood pressure 98/52 heart rate 85. She does have influenza tested this morning positive for that and she has already had Xofluza. She takes prednisone 10 mg twice a day for her interstitial lung disease and rheumatoid arthritis. She actually forgot to take both doses of it today. Suspect a component of adrenal insufficiency contributing to her general weakness. Spoke with Dr. Webber, will admit, I will double her prednisone dose twice daily for 3 days then back to her 10 mg dose twice a day. Impression Primary Impression: Influenza Additional Impression: General weakness Disposition: ADMITTED INPATIENT Condition: Stable Admissions Decision to Admit Reason: Admit from ER (General) Decision to Admit/Date: Mar 18, 2022 Time/Decision to Admit Time: 22:56 Departure-Patient Inst. Referrals: SKYE HAWLEY MD (PCP/Family) Primary Care Physician Patient Instructions: Flu, Adult (DC) Add. Discharge Instructions: 1. Return to Er for any concerns 2. Follow up with your doctor this week 3. Tylenol and Ibuprofen for pain and fever. All discharge instructions reviewed with patient and/or family. Voiced understanding. SONIA GARCIA HOG OPERATOR Mar 18, 2022 21:30
[2022-03-18 22:46] LABS: BILIRUBIN,URINE NEGATIVE (NEGATIVE); CLARITY,URINE CLEAR; COLOR,URINE YELLOW; GLUCOSE, URINE (UA) NEGATIVE (NEGATIVE); KETONES,URINE NEGATIVE (NEGATIVE); LEUKOCYTE ESTERASE ,URINE NEGATIVE (NEGATIVE); NITRITE,URINE NEGATIVE (NEGATIVE); PROTEIN,URINE 1+ (NEGATIVE)
[2022-03-18 22:53] LABS: BACTERIA,URINE NEGATIVE /HPF; SQUAMOUS EPITHELIAL CELL,UR 0-2 /HPF; WBC,URINE RARE /HPF
[2022-03-18] MEDS ORDERED: predniSONE 20 MG TAB PO ONE (23:15)
[2022-03-19] VITALS (7 sets, daily range): BP systolic 93–113; BP diastolic 57–75
[2022-03-19] MEDS ORDERED: RT-ALBUTEROL SULF 2.5 MG/3 ML PRE-MIX VIAL INH PRN (02:30)
[2022-03-19] MEDS ORDERED: ONDANSETRON 4 MG/2 ML (SDV) Z0FRAN IV PRN (03:00)
[2022-03-19] MEDS: RT-ALBUTEROL SULF 2.5 MG/3 ML PRE-MIX VIAL INH SCH ×4 (03:30→22:15)
[2022-03-19] MEDS: inSUlin ASPART (NovoLOG) 1 UNIT/0.01 ML (CHARGE PER UNIT) SC SCH ×4 (05:26→20:30)
[2022-03-19] MEDS: CATHETER FLUSH 10 ML SYR IVP SCH ×3 (05:35→20:50)
[2022-03-19 06:03] LABS: BASOPHILS % (AUTO) 0 % (0-10); EOSINOPHILS % (AUTO) 0 % (0-10); HEMATOCRIT 39 % (35-52); HEMOGLOBIN 13.1 g/dL (11.5-16.0); LYMPHOCYTES # (AUTO) 1.1 10^3/uL (1.0-4.0); LYMPHOCYTES % (AUTO) 18 % (12-44); MEAN CORPUSCULAR HEMOGLOBIN 34 pg (25-34); MEAN CORPUSCULAR HGB CONC 34 g/dL (32-36); MEAN CORPUSCULAR VOLUME 101 fL (80-99); MEAN PLATELET VOLUME 11.2 fL (9.0-12.2); MONOCYTES # (AUTO) 0.3 10^3/uL (0.0-1.0); MONOCYTES % (AUTO) 6 % (0-12); NEUTROPHILS # (AUTO) 4.5 10^3/uL (1.8-7.8); NEUTROPHILS % (AUTO) 75 % (42-75); PLATELET COUNT 198 10^3/uL (130-400)
[2022-03-19 06:26] LABS: POTASSIUM 3.6 MMOL/L (3.6-5.0)
[2022-03-19 06:27] LABS: CALCIUM 8.3 MG/DL (8.5-10.1)
[2022-03-19 06:32] LABS: CREATININE SERUM 0.91 MG/DL (0.60-1.30)
[2022-03-19] MEDS ORDERED: PANTOPRAZOLE 40 MG (PROTONIX) VIAL IV SCH (09:00)
[2022-03-19] MEDS: predniSONE 20 MG TAB PO SCH ×2 (09:36→17:34)
--- NOTE | 2022-03-19 10:00 | History & Physical-Hospitalist ---
History of Present Illness HPI/Chief Complaint Pt is a 76yoCF with a PMH of ILD who presented to the ER due to weakness. She states her symptoms started yesterday and she felt like she was too weak to do anything. She went to [facility] walk in to be tested for the flu and was positive for flu A. She was there for multiple hours in order to be seen was quite tired from this. Her son drove her home and she was hardly able to get out of the car and required assistance. When she got into her house she laid down and was unable to get back up. Both of her sons attempted to get her up and they were unable to due to her weakness. EMS was summoned and brought her to the emergency room for further evaluation. She is normally ambulatory. She was admitted for further management. This morning she reports feeling much better though is not quite back to her baseline physical status. Source: patient Date Seen 03/19/22 Time Seen by a Provider: 10:00 Attending Physician Mushtaq Snyder MD PCP Admitting Physician: Dylan Webber MD Attending Physician: Dylan Webber MD Referring Physician Date of Admission Mar 18, 2022 at 10:42 pm Home Medications & Allergies Home Medications Reviewed patient Home Medication Reconciliation performed by pharmacy medication reconciliations ophthalmic technician apprentice and/or nursing. Patients Allergies have been reviewed. Allergies Allergies Coded Allergies metoclopramide (Verified Allergy, Mild, 08/08/12) erythromycin base (Verified Allergy, Unknown, 08/08/12) morphine (Verified Allergy, Unknown, 08/08/12) Past Bvtqbmx-Vdfxyy-Vdofkr Hx Patient Social History Marrital Status: Employed/Student: retired Tobacco Use?: No Smoking Status: Never a Smoker Use of E-Cig and/or Vaping dev: No Substance use?: No Alcohol Use?: No Pt feels they are or have been: No Immunizations Up To Date Date of Influenza Vaccine: Jan 17, 2022 First/Initial COVID19 Vaccinat: UNK Second COVID19 Vaccination Barak: UNK Date of Pneumonia Vaccine: Jan 17, 2005 Seasonal Allergies Seasonal Allergies: No Current Status Advance Directives: Yes Advance Directive Location: Unable to obtain copy Communicates: Verbally Primary Language: Jordanian Preferred Spoken Language: Jordanian Is interpretation needed?: No Past Medical History Sexually Transmitted Disease: No HIV/AIDS: No Kidney Stones Gastroesophageal Reflux, Alcazar's Esophagus, Obstructive Bowel Fractures Adverse Reaction/Blood Tranf: No Interstitial lung disease on 4lpm chronically Family Medical History Cancer 03 FATHER, Onset:60 years & older ("Tumor between heart and lungs") Chest pain 09 SISTER, Onset:50's - 60 Congenital heart disease 09 SISTER, Onset:Pre- (Infant sister that at .) Family history: Arthritis 03 FATHER, Onset:50's - 60 Family history: Asthma 03 MOTHER, Onset:50's - 60 Family history: Cardiovascular disease 03 FATHER, Onset:Unknown 03 MOTHER, Onset:Unknown 09 SISTER, Onset:60 years & older Family history: Diabetes mellitus 03 FATHER, Onset:50's - 60 Family history: Hypertension 03 FATHER, Onset:40's - 50 03 MOTHER, Onset:40's - 50 09 SISTER, Onset:30's - 40 Heart disease 03 FATHER, Onset:40's - 50 03 MOTHER, Onset:40's - 50 09 SISTER, Onset:40's - 50 History of - respiratory disease 03 MOTHER, Onset:30's - 40 Myocardial infarction 09 SISTER, Onset:50's - 60 No Family History of: Abdominal aortic aneurysm Ilya's disease Alcoholism Aphasia Cancer of colon Cataract Congestive heart failure Cystic fibrosis Dementia Dysphagia Family history: Allergy Family history: Alzheimer's disease Family history: Breast disease Family history: Coronary thrombosis Family history: Gastrointestinal disease Family history: Glaucoma Family history: Osteoporosis Family history: Thyroid disorder Headache Hearing loss Hereditary disease History of - anemia History of - disorder History of drug abuse Human immunodeficiency virus (HIV) seropositivity Hypercholesterolemia Infertile Kidney disease Malignant neoplasm of lung Parkinson's disease Prostate cancer Psychotic disorder Seizure disorder Stroke Tuberculosis Visual impairment Heart Disease, CAD Over 55 Years Old Review of Systems Constitutional: No fever; malaise, weakness EENTM: no symptoms reported Respiratory: no symptoms reported Cardiovascular: no symptoms reported Gastrointestinal: diarrhea Genitourinary: no symptoms reported Musculoskeletal: see HPI Skin: no symptoms reported Psychiatric/Neurological: No Symptoms Reported Physical Exam Physical Exam Vital Signs Vital Signs - First Documented 03/18/22 03/19/22 20:53 02:11 Temp 38.0 Pulse 87 Resp 26 B/P (MAP) 93/75 (81) Pulse Ox 96 O2 Delivery Nasal Cannula O2 Flow Rate 4.00 FiO2 32 Capillary Refill : Less Than 3 Seconds Height, Weight, BMI Height: 5'1.50" Weight: 140lbs. 0.0oz. 63.780659fh; 29.55 BMI Method:Stated General Appearance: No Apparent Distress, WD/WN HEENT: PERRL/EOMI, Moist Mucous Membranes; No Scleral Icterus (L), No Scleral Icterus (R) Neck: Normal Inspection, Supple Respiratory: No Accessory Muscle Use, Decreased Breath Sounds Cardiovascular: Regular Rate, Rhythm, No Murmur Gastrointestinal: Normal Bowel Sounds, Non Tender, Soft Extremity: Normal Capillary Refill, No Calf Tenderness, No Pedal Edema Neurologic/Psychiatric: Alert, Oriented x3 Skin: Normal Color, Warm/Dry Results Results/Procedures Labs Laboratory Tests 03/18/22 21:00 03/19/22 05:25 Patient resulted labs reviewed. Imaging: Reviewed Imaging Report Imaging [facility], [place] NAME: NINOSKA TY [facility] REC#: [id number] PT STATUS: REG ER : 1945 PHYSICIAN: SONIA GARCIA APRN ADMIT DATE: 03/18/22/ER Signed Date of Exam:03/18/22 CHEST 1 VIEW, AP/PA ONLY EXAMINATION: Chest 1 view. HISTORY: Weakness. Cough. COMPARISON: 12/03/2021. FINDINGS: Patchy bibasilar opacities are seen. There are scattered prominent interstitial markings throughout the lungs. Stable prominent cardiac silhouette. No large pleural effusion or pneumothorax. IMPRESSION: Findings suggestive of interstitial edema which may be superimposed on chronic fibrotic changes. Patchy bibasilar opacities may also represent atelectasis. Dictated by: Dictated on workstation # [id number] Dict: 03/18/222123 Trans: 03/18/222135 [facility] [id number] Interpreted by: SPENCER GONZALES DO Electronically signed by: SPENCER GONZALES DO 03/18/222135 Assessment/Plan Admission Diagnosis Influenza Admission Status: Observation Assessment and Plan Influenza A Generalized weakness Interstitial lung disease Continue home Xofluza PT/OT Supportive care Adrenal insufficiency Stress dose and then resume home dose HTN Continue home meds when rec done DVT ppx: SCDs Diagnosis/Problems Diagnosis/Problems (1) Influenza Status: Acute (2) General weakness Status: Acute (3) Adrenal insufficiency (4) Interstitial lung disease Status: Chronic (5) Chronic respiratory failure Status: Chronic Qualifiers: Respiratory failure complication: hypoxia Qualified Codes: J96.11 - Chron ic respiratory failure with hypoxia AUDREY MORALES MD Mar 19, 2022 10:00 am
[2022-03-19] MEDS ORDERED: UMEC62.5 INH ×2 (13:18)
[2022-03-19] MEDS ORDERED: BUDE10.2 INH ×2 (13:18)
[2022-03-19] MEDS ORDERED: SACU1TAB2 PO ×2 (13:18)
[2022-03-19] MEDS ORDERED: PRD10T PO ×2 (13:18)
[2022-03-19] MEDS ORDERED: BUME2TAB7 PO ×2 (13:18)
[2022-03-19] MEDS ORDERED: ESTR0.5T PO ×2 (13:18)
[2022-03-19] MEDS ORDERED: ADAL20SY SQ ×2 (13:18)
[2022-03-19] MEDS ORDERED: ALB0.5V INH ×2 (13:18)
[2022-03-19] MEDS ORDERED: FEXO180T84 PO ×2 (13:18)
[2022-03-19] MEDS ORDERED: CHOL200074 PO ×2 (13:18)
[2022-03-19] MEDS ORDERED: LACT1CAP39 PO ×2 (13:18)
[2022-03-19] MEDS ORDERED: HC A30CR5 RC ×2 (13:18)
[2022-03-19] MEDS ORDERED: BIOT10005 PO ×2 (13:18)
[2022-03-19] MEDS ORDERED: ALBU2.5V4 NEB ×2 (13:18)
[2022-03-19] MEDS ORDERED: NINT100C PO ×2 (13:18)
[2022-03-19] MEDS ORDERED: ONDA4TAB11 PO ×2 (13:18)
[2022-03-19] MEDS ORDERED: CALC600T91 PO ×2 (13:18)
[2022-03-19] MEDS ORDERED: POTA-164 PO ×2 (13:18)
[2022-03-19] MEDS ORDERED: ALBU6.7H13 ×2 (13:18)
[2022-03-19] MEDS ORDERED: NON-FORMULARY MEDICATION 1 EA EA (Fexofenadine HCl (Allegra Allergy) 180 MG) PO PRN (13:30)
[2022-03-19] MEDS ORDERED: ADALIMUMAB 20 MG SQ SCH (13:30)
[2022-03-19] MEDS ORDERED: LORATADINE (CLARITIN) 10 MG TAB PO PRN (14:00)
--- NOTE | 2022-03-19 14:05 | Physical Therapy Evaluation ---
PT Evaluation-General Medical Diagnosis Admission Date Mar 18, 2022 at 22:42 Medical Diagnosis: Influenza A, Weakness, Adrenal insufficiency Onset Date: Mar 18, 2022 Therapy Diagnosis Therapy Diagnosis: Gait deficit Height/Weight Height (Feet): 5 Height (Inches): 1.50 Weight (Pounds): 140 Weight (Ounces): 0.0 Precautions Precautions/Isolations: Droplet Isolation, Fall Prevention, Standard Precautions Weight Bear Status Right Lower Extremity: Right Full Weight Bearing Left Lower Extremity: Left Full Weight Bearing Referral Physician: Dr. Gee Reason for Referral: Evaluation/Treatment Medical History Reviewed History: Yes Social History Home: Single Level Current Living Status: Spouse Entry Into Home: Stairs With Railing PT Steps Into Home: 3 Prior Prior Level of Function SCALE: Activities may be completed with or without assistive devices. 4-Uyuoymwccc-xxlvtkt completes the activity by him/herself with no assistance from a helper. 5-Set-up or Clean-up Assistance-helper sets up or cleans up; patient completes activity. [place] assists only prior to or following the activity. 4-Supervision or Touching Assistance-helper provides verbal cues and/or touching/steadying and/or contact guard assistance as patient completes activ ity. Assistance may be provided throughout the activity or intermittently. 3-Partial/Moderate Assistance-helper does LESS THAN HALF the effort. [place] lifts, holds or supports trunk or limbs, but provides less than half the effort. 2-Substantial/Maximal Assistance-helper does MORE THAN HALF the effort. [place] lifts or holds trunk or limbs and provides more than half the effort. 8-Diazknnnd-khfxih does ALL the effort. Patient does none of the effort to complete the activity. Or, the assistance of 2 or more helpers is required for the patient to complete the activity. If activity was not attempted, code reason: 7-Patient Refused. 9-Not Applicable-not attempted and the patient did not perform the activity before the current illness, exacerbation or injury. 10-Not Attempted due to Environmental Limitations-(lack of equipment, weather restraints, etc.). 88-Not Attempted due to Medical Conditions or Safety Concerns. Bed Mobility: 6 Transfers (B,C,W/C): 6 Gait: 6 Stairs: 6 Indoor Mobility (Ambulation): Independent Stairs: Independent Prior Devices Use: Walker PT Evaluation-Current Subjective Patient lying supine in bed upon PT arrival, agreeable to treatment. Rates pain currently at 7/10 in low back. Objective Patient Orientation: Person, Place, Time, Situation Attachments: Oxygen 4 L O2 ROM/Strength ROM Lower Extremities WFLs all planes bilaterally Strength Lower Extremities 3+/5 bilaterally all planes Sensory Vision: Functional Hearing: Functional Sensation Right Lower Extremit: Impaired Sensation Left Lower Extremity: Impaired Sensation Lower Extremities Patient unable to feel light touch in S1 and S2 dermatomes bilaterally. Reports this is due to LBP and multiple lumbar surgeries. Transfers Roll Left to Right (QC): 4 Sit to Lying (QC): 4 Lying to Sitting/Side of Bed(Q: 4 Sit to Stand (QC): 3 Chair/Vze-dy-Kefjm Xfer(QC): 3 Gait Does the Patient Walk?: Yes Mode of Locomotion: Walk Anticipated Mode of Locomotion: Walk Walk 10 feet (QC): 4 Distance: 30 feet Gait Assistive Device: FWW Balance Sitting Static: Fair Sitting Dynamic: Fair Standing Static: Fair Standing Dynamic: Poor Assessment/Needs Patient tolerated treatment fair. She performs all observed bed mobility with SBA/CGA, and sit to stand, bed to chair with min A. Patient ambulates 30 feet in room with CGA, verbal cues for safety, progression, posture and balance. Patient demonstrates narrow HENRY, shortened stride length bilaterally and unsteady steps throughout gait. Patient in chair post treatment with all needs met, nursing notified, call light in room. Rehab Potential: Fair PT Mortgage Lender Goals Mortgage Lender Goals PT Mortgage Lender Goals Time Frame: Apr 11, 2022 Roll Left & Right (QC): 6 Sit to Lying (QC): 6 Lying-Sitting on Side/Bed(QC): 6 Sit to Stand (QC): 6 Chair/Gjn-oq-Gscob Xfer(QC): 6 Toilet Transfer (QC): 6 Does the Patient Walk: Yes Walk 10 feet (QC): 6 Walk 50ft with 2 Turns (QC): 6 Walk 150 ft (QC): 6 1 Step (curb) (QC): 4 4 Steps (QC): 4 12 Steps (QC): 4 PT Plan Problem List Problem List: Activity Tolerance, Functional Strength, Safety, Balance, Gait, Transfer, Bed Mobility, ROM Treatment/Plan Treatment Plan: Continue Plan of Care Treatment Plan: Bed Mobility, Education, Functional Activity June, Functional Strength, Group Therapy, Gait, Safety Treatment Duration: Apr 18, 2022 Frequency: 6 times per week Estimated Hrs Per Day: .25 hour per day Patient and/or Family Agrees t: Yes Safety Risks/Education Patient Education: Gait Training, Transfer Techniques Teaching Recipient: Patient Teaching Methods: Demonstration, Discussion Response to Teaching: Verbalize Understanding, Return Demonstration Discharge Recommendations Target Placement Home with assistance as needed. May benefit from outpatient PT for strengthening and balance post hospital admission Time Time In: 1059 Time Out: 1118 DATE: Mar 19, 2022 Total Billed Treatment Time: 19 Total Billed Treatment Visit, SKYE Moore PT Mar 19, 2022 14:05
[2022-03-19] MEDS: KCL 10 MEQ TAB (MICRO K) PO SCH (17:34)
[2022-03-19] MEDS: CALCIUM CARBONATE 600 MG (CALCARB) TAB PO SCH (17:47)
[2022-03-19] MEDS: ONDANSETRON 4 MG (ZOFRAN) ORAL DISSOLVE TAB PO PRN ×2 (17:47→23:50)
[2022-03-19] MEDS ORDERED: PATIENT MAY USE OWN MEDS, ALL MC SCH (18:00)
[2022-03-19] MEDS ORDERED: PATIENT MAY USE OWN MEDS, ALL SQ SCH (18:45)
[2022-03-19] MEDS ORDERED: HUMIRA 40 MG/0.4 ML SQ SCH (19:00)
[2022-03-19] MEDS: OFEV 100 MG PO SCH (19:02)
[2022-03-19] MEDS: SACUBITRIL/VALSARTAN 24/26 MG (ENTRESTO) TABLET PO SCH (20:49)
[2022-03-19] MEDS: meTOproloL SUCCINATE 50 MG (TOPROL XL) TAB PO SCH (20:49)
[2022-03-19] MEDS: PANTOPRAZOLE 40 MG (PROTONIX) TAB PO SCH (20:49)
[2022-03-19] MEDS: ACETAMINOPHEN 500 MG TAB (TYLENOL) PO PRN (20:59)
[2022-03-19] MEDS ORDERED: NON-FORMULARY MEDICATION 1 EA EA (Budesonide/Formoterol Fumarate (Symbicort 160-4.5 Mcg In INH SCH (21:00)
[2022-03-19] MEDS ORDERED: PREGABALIN 100 MG (LYRICA) CAPSULE PO SCH (21:00)
[2022-03-19] MEDS ORDERED: NON-FORMULARY MEDICATION 1 EA EA (Potassium Chloride (Klor-Con M10) 10 MEQ) PO SCH (21:00)
[2022-03-19] MEDS ORDERED: predniSONE 10 MG TAB PO SCH (21:00)
[2022-03-19] MEDS ORDERED: NON-FORMULARY MEDICATION 1 EA EA (Omeprazole 40 MG) PO SCH (21:00)
[2022-03-19] MEDS: RT--FLUTICASONE/SALMETEROL 232-14 (AIRDUO RespiCLICK) IH SCH (22:16)
[2022-03-19] MEDS: LOPERAMIDE 2 MG (IMODIUM) TABLET PO PRN (23:49)
[2022-03-20] VITALS: BP 105/65
[2022-03-20] MEDS: RT-ALBUTEROL SULF 2.5 MG/3 ML PRE-MIX VIAL INH SCH ×2 (02:43→08:06)
[2022-03-20 03:21] VITALS: BP 115/63
[2022-03-20] MEDS: CATHETER FLUSH 10 ML SYR IVP SCH (05:28)
[2022-03-20] MEDS: inSUlin ASPART (NovoLOG) 1 UNIT/0.01 ML (CHARGE PER UNIT) SC SCH ×2 (05:28→12:42)
[2022-03-20 07:26] VITALS: BP 114/64
[2022-03-20] MEDS: RT--FLUTICASONE/SALMETEROL 232-14 (AIRDUO RespiCLICK) IH SCH (08:06)
[2022-03-20] MEDS ORDERED: NON-FORMULARY MEDICATION 1 EA EA (Lactobacillus Rhamnosus GG (Culturelle) 1 EACH) PO SCH (09:00)
[2022-03-20] MEDS ORDERED: LACTOBACILLUS ACIDOPHILUS (PROBIOTIC) CAPSULE PO SCH (09:00)
[2022-03-20] MEDS ORDERED: PREGABALIN 100 MG (LYRICA) CAPSULE PO SCH (09:00)
[2022-03-20] MEDS: PANTOPRAZOLE 40 MG (PROTONIX) TAB PO SCH (09:18)
[2022-03-20] MEDS: KCL 10 MEQ TAB (MICRO K) PO SCH (09:18)
[2022-03-20] MEDS: predniSONE 20 MG TAB PO SCH (09:18)
[2022-03-20] MEDS: meTOproloL SUCCINATE 50 MG (TOPROL XL) TAB PO SCH (09:18)
[2022-03-20] MEDS: SACUBITRIL/VALSARTAN 24/26 MG (ENTRESTO) TABLET PO SCH (09:18)
[2022-03-20] MEDS: CALCIUM CARBONATE 600 MG (CALCARB) TAB PO SCH (09:18)
[2022-03-20] MEDS: OFEV 100 MG PO SCH (09:19)
--- NOTE | 2022-03-20 10:02 | Physical Therapy Daily Note ---
PT Daily Note-Current Subjective Patient reports she had a rough night. Agrees to PT. Pain Section J - Health Conditions 1. Rarely or not at all 2. Occasionally 3. Frequently 4. Almost constantly 8. Unable to answer Pain Effect on Sleep: 2 Pain Interference with Therapy: 2 Pain Interference w/Day-to-Day: 2 Mental Status Patient Orientation: Normal For Age Attachments: Oxygen Transfers SCALE: Activities may be completed with or without assistive devices. 3-Ukafpuvxbl-nucnnjq completes the activity by him/herself with no assistance from a helper. 5-Set-up or Clean-up Assistance-helper sets up or cleans up; patient completes activity. [place] assists only prior to or following the activity. 4-Supervision or Touching Assistance-helper provides verbal cues and/or touching/steadying and/or contact guard assistance as patient completes activity. Assistance may be provided throughout the activity or intermittently. 3-Partial/Moderate Assistance-helper does LESS THAN HALF the effort. [place] lifts, holds or supports trunk or limbs, but provides less than half the effort. 2-Substantial/Maximal Assistance-helper does MORE THAN HALF the effort. [place] lifts or holds trunk or limbs and provides more than half the effort. 5-Lpallkelk-uchfkg does ALL the effort. Patient does none of the effort to complete the activity. Or, the assistance of 2 or more helpers is required for the patient to complete the activity. If activity was not attempted, code reason: 7-Patient Refused. 9-Not Applicable-not attempted and the patient did not perform the activity befo re the current illness, exacerbation or injury. 10-Not Attempted due to Environmental Limitations-(lack of equipment, weather re straints, etc.). 88-Not Attempted due to Medical Conditions or Safety Concerns. Sit to Stand (QC): 4 Weight Bearing Right Lower Extremity: Right Full Weight Bearing Left Lower Extremity: Left Full Weight Bearing Gait Training Distance: 50' Walk 10 feet (QC): 4 Walk 50 ft with 2 Turns(QC): 4 Gait Assistive Device: FWW slow, slightly unsteady gait sequence Assessment Noted increase SOA with minimal activity with O2 in place. Patient remains seated EOB after session with good recovery. PT to increase activity as tolerated by patient. PT Editor Producer Goals Editor Producer Goals PT Editor Producer Goals Time Frame: Apr 11, 2022 Roll Left & Right (QC): 6 Sit to Lying (QC): 6 Lying-Sitting on Side/Bed(QC): 6 Sit to Stand (QC): 6 Chair/Soe-lz-Cclle Xfer(QC): 6 Toilet Transfer (QC): 6 Does the Patient Walk: Yes Walk 10 feet (QC): 6 Walk 50ft with 2 Turns (QC): 6 Walk 150 ft (QC): 6 1 Step (curb) (QC): 4 4 Steps (QC): 4 12 Steps (QC): 4 PT Plan Treatment/Plan Treatment Plan: Continue Plan of Care Treatment Plan: Bed Mobility, Education, Functional Activity June, Functional Strength, Group Therapy, Gait, Safety Treatment Duration: Apr 18, 2022 Frequency: 6 times per week Estimated Hrs Per Day: .25 hour per day Patient and/or Family Agrees t: Yes Time Time In: 920 Time Out: 933 DATE: Mar 20, 2022 Total Billed Treatment Time: 13 Total Billed Treatment 1 visit FA 13 min LINK GAN PT Mar 20, 2022 10:02
[2022-03-20] MEDS: LOPERAMIDE 2 MG (IMODIUM) TABLET PO PRN (10:06)
[2022-03-20] MEDS: ACETAMINOPHEN 500 MG TAB (TYLENOL) PO PRN (11:09)
--- NOTE | 2022-03-20 11:57 | Discharge Inst-Simple/Standard ---
Discharge Inst-Standard Patient Instructions/Follow Up Plan of Care/Instructions/FU: Please continue to take your medications as written. Please follow up with your primary care doctor to follow up this hospital stay. Activity as Tolerated: Yes Discharge Diet: No Restrictions Return to The Hospital For: Chest pain, shortness of breath, fever, weakness, if you feel you are getting worse. AUDREY MORALES MD Mar 20, 2022 11:57
--- NOTE | 2022-03-20 12:02 | Discharge Summary ---
Diagnosis/Chief Complaint Date of Admission Mar 18, 2022 at 22:42 Date of Discharge Discharge Date: Mar 20, 2022 Admission Diagnosis Influenza Primary Care Mushtaq Snyder MD Discharge Diagnosis (1) Influenza Status: Acute (2) General weakness Status: Acute (3) Adrenal insufficiency (4) Interstitial lung disease Status: Chronic (5) Chronic respiratory failure Status: Chronic Discharge Summary Discharge Physical Exam Allergies: Coded Allergies: metoclopramide (Verified Allergy, Mild, 08/08/12) erythromycin base (Verified Allergy, Unknown, 08/08/12) morphine (Verified Allergy, Unknown, pt has rec Lortab & Hydromorphone in the past, 03/20/22) Vitals & I&Os Vital Signs Date Time Temp Pulse Resp B/P (MAP) Pulse Ox O2 Delivery O2 Flow Rate FiO2 03/20/22 13:05 36.8 109 19 122/76 94 Nasal Cannula 4.00 03/19/22 02:11 32 General Appearance: No Apparent Distress, Chronically ill Respiratory: Lungs Clear Cardiovascular: Regular Rate, Rhythm, No Murmur Neurologic/Psychiatric: Alert, Oriented x3 Hospital Course She was admitted to the hospital secondary to generalized weakness due to influenza A. She was on her baseline oxygen of 4 L due to her interstitial lung disease and this remained stable. She was seen by physical therapy and deemed an appropriate candidate for inpatient rehab. She was discharged there in stable and improved condition to follow-up with her primary care physician once discharged from inpatient rehab. Labs (last 24 hrs) Laboratory Tests 03/20/22 12:19: Glucometer 201H Patient resulted labs reviewed. Pending Labs Imaging: Reviewed Imaging Report Discussion & Recommendations Discharge Planning: >30 minutes discharge planning Discharge Home Medications: Active Scripts Active Reported Entresto 24 mg-26 mg Tablet (Sacubitril/Valsartan) 24 Mg-26 Mg Tablet 1 Tab PO BID Ofev (Nintedanib Esylate) 100 Mg Capsule 100 Mg PO BID Culturelle (Lactobacillus Rhamnosus GG) 10 Billion Cell Capsule 1 Each PO DAILY Oma Allergy (Fexofenadine HCl) 180 Mg Tablet 180 Mg PO DAILY PRN Vitamin D3 (Cholecalciferol (Vitamin D3)) 50 Mcg (2000 Unit) Capsule 50 Mcg PO DAILY Calcium (Calcium Carbonate) 600 Mg Calcium (1500 Mg) Tablet 600 Mg PO BID Biotin 10,000 Mcg Capsule 10,000 Mcg PO DAILY Humira (Adalimumab) 20 Mg/0.2 Ml Syringekit 20 Mg SQ WED Proventil Hfa (Albuterol Sulfate) 90 Mcg Hfa.aer.ad 2 Puff Q6H PRN Symbicort 160-4.5 Mcg Inhaler (Budesonide/Formoterol Fumarate) 160 Mcg-4.5 Mcg/Actuation Hfa.aer.ad 2 Puff INH BID Ondansetron Odt (Ondansetron) 4 Mg Tab.rapdis 4 Mg PO Q6H PRN Albuterol Sulfate 2.5 Mg/0.5 Ml Vial.neb 2.5 Mg INH HS Albuterol Sulfate 2.5 Mg/3 Ml (0.083 %) Vial.neb 3 Ml NEB Q6H PRN Bumetanide 2 Mg Tablet 2 Mg PO DAILY Klor-Con M10 (Potassium Chloride) 10 Meq Tab.er.prt 10 Meq PO BID Estradiol Tablet (Estradiol) 0.5 Mg Tablet 0.5 Mg PO DAILY Prednisone 10 Mg Tab 10 Mg PO BID Incruse Ellipta (Umeclidinium Jordan) 62.5 Mcg/Actuation Blst.w.dev 1 Puff INH HS Hydrocort-Pramoxine 2.5-1% Crm (Hydrocortisone/Pramoxine) 2.5 %-1 % Cream.appl 1 Applic RC BID PRN Pregabalin 100 Mg Capsule 200 Mg PO HS TAKES 2 (100MG) CAPS Pregabalin 100 Mg Capsule 100 Mg PO DAILY Acetaminophen 500 Mg Tablet 1,000 Mg PO Q6H PRN Cyanocobalamin Injection (Cyanocobalamin) 1,000 Mcg/Ml Inj 1,000 Mcg IM MONTHLY Omeprazole 40 Mg Capsule.dr 40 Mg PO BID Metoprolol Succinate 50 Mg Tab.er.24h 50 Mg PO BID Instructions to patient/family Please see electronic discharge instructions given to patient. Problem Qualifiers (1) Chronic respiratory failure: Respiratory failure complication: hypoxia Qualified Codes: J96.11 - Chronic respiratory failure with hypoxia AUDREY MORALES MD Mar 20, 2022 12:02
[2022-03-20 12:44] VITALS: BP 122/76
[2022-03-20 13:05] VITALS: BP 122/76
[2022-03-22] MEDS ORDERED: predniSONE 10 MG TAB PO SCH (08:00)
== END 2022-03-20 11:57 ==
LOC: EDUNIT# 20:52 → ER 20:52 → 4TH 22:42
PROVIDERS: ADMIT Internal Medicine; ATTEND Internal Medicine
DX: J10.1 Influenza due to other identified influenza virus with other respiratory manifestations (principal); J96.11 Chronic respiratory failure with hypoxia; I10 Essential (primary) hypertension; E27.40 Unspecified adrenocortical insufficiency; Z79.899 Other long term (current) drug therapy
CPT/HCPCS: 51701; 71045; 80048; 80053; 81000; 82947 ×2; 83735; 83880; 84443; 84484; 85025 ×2; 93005; 94640 ×4; 94664; 96372; 96375; 96376; 97162; 97530; 99284; G0378; 36415

== ENCOUNTER 2022-03-20 11:52 | Inpatient (IN) | payer MEDICARE, OTHER ==
[~2022-03-20] VITALS: Ht 155 cm; Wt 71.8 kg
[~2022-03-20 11:52] MED LIST changes: +ADAL20SY SQ; +ALB0.5V INH; +ALBU2.5V4 NEB; +ALBU6.7H13; +BIOT10005 PO; +BUDE10.2 INH; +BUME2TAB7 PO; +CALC600T91 PO; +CHOL200074 PO; +ESTR0.5T PO; +FEXO180T84 PO; +HC A30CR5 RC; +LACT1CAP39 PO; +NINT100C PO; +ONDA4TAB11 PO; +POTA-164 PO; +PRD10T PO; +SACU1TAB2 PO; +UMEC62.5 INH
--- NOTE | 2022-03-20 12:23 | PM&R Post Admission Assessment ---
PM&R Date of Visit: Mar 20, 2022 Time of Visit: 14:00 History of Present Illness CC: Debility 2/2 influenza A infection HPI: Kiley Seymour is a 76yo with h/o ILD who presented to the ED 03/18/22brought in by her son because of severe fatigue and weakness, she tested positive for influenza A and was admitted to [facility]. She is now being transfered to the ARU because her of 60 years is also a patient at the same hospital due to heart problems and she needs assistance in regaining functional strength. She was seen with her son and his . She has a secondary complaint of chronic back pain that feels worse with her weakened state. PMH: Endometriosis, Ovarian Cyst, Kidney Stones, Gastroesophageal Reflux, Alcazar's Esophagus, Intestinal adhesions, Obstructive Bowel, vertebral Fractures, blood transfusions (no adverse effects), PSH: Multiple intestinal adhesion removals, back surgery for broken spine All: artificial sweetener(migraines), Abatacept(anaphylaxis), silicone tape(rash), erythromycin (n/v/d), Hydrochlorothiazide (rash), Methotrexate (HTN), metoclopramide (anxiety), Morphine (syncope), tocilizumab (hives), tramadol (dizziness) Meds: Adalimumab (Humira), 20 MG SQ WED, (Reported) Albuterol Sulfate (Albuterol Sulfate), 2.5 MG INH HS, (Reported) Biotin (Biotin), 10,000 MCG PO DAILY, (Reported) Budesonide/Formoterol Fumarate (Symbicort 160-4.5 Mcg Inhaler), 2 PUFF INH BID, (Reported) Bumetanide (Bumetanide), 2 MG PO DAILY, (Reported) Calcium Carbonate (Calcium), 600 MG PO BID, (Reported) Cholecalciferol (Vitamin D3) (Vitamin D3), 50 MCG PO DAILY, (Reported) Cyanocobalamin (Cyanocobalamin Injection), 1,000 MCG IM MONTHLY, (Reported) Estradiol (Estradiol Tablet), 0.5 MG PO DAILY, (Reported) Lactobacillus Rhamnosus GG (Culturelle), 1 EACH PO DAILY, (Reported) Metoprolol Succinate (Metoprolol Succinate), 50 MG PO BID, (Reported) Nintedanib Esylate (Ofev), 100 MG PO BID, (Reported) Omeprazole (Omeprazole), 40 MG PO BID, (Reported) Potassium Chloride (Klor-Con M10), 10 MEQ PO BID, (Reported) Prednisone (Prednisone), 10 MG PO BID, (Reported) Pregabalin (Pregabalin), 100 MG PO DAILY, (Reported) Pregabalin (Pregabalin), 200 MG PO HS, (Reported) Sacubitril/Valsartan (Entresto 24 mg-26 mg Tablet), 1 TAB PO BID, (Reported) Umeclidinium Alto (Incruse Ellipta), 1 PUFF INH HS, (Reported) Scheduled PRN Acetaminophen (Acetaminophen), 1,000 MG PO Q6H PRN for PAIN-MILD (1-4), (Reported) Albuterol Sulfate (Albuterol Sulfate), 3 ML NEB Q6H PRN for SHORTNESS OF BREATH, (Reported) Albuterol Sulfate (Proventil Hfa), 2 PUFF Q6H PRN for SHORTNESS OF BREATH, (Reported) Fexofenadine HCl (Oma Allergy), 180 MG PO DAILY PRN for ALLERGY SYMPTOMS, (Reported) Hydrocortisone/Pramoxine (Hydrocort-Pramoxine 2.5-1% Crm), 1 APPLIC RC BID PRN for HEMMORRHOID DISCOMFORT, (Reported) Ondansetron (Ondansetron Odt), 4 MG PO Q6H PRN for SHORTNESS OF BREATH, (Reported) SH: for 60 years to (79), mother to 3 children, retired, Denies use of Alcohol, tobacco, recreational drugs, caffeine consumption from 3+ pepsis/day, poor glycemic control because of her diet FH: Cancer FATHER, Onset:60 years & older ("Tumor between heart and lungs") Chest pain SISTER, Onset:50's - 60 Congenital heart disease SISTER, Onset:Pre- ( sister that at .) Family history: Arthritis FATHER, Onset:50's - 60 Family history: Asthma MOTHER, Onset:50's - 60 Family history: Cardiovascular disease FATHER, Onset:Unknown MOTHER, Onset:Unknown SISTER, Onset:60 years & older Family history: Diabetes mellitus FATHER, Onset:50's - 60 Family history: Hypertension FATHER, Onset:40's - 50 MOTHER, Onset:40's - 50 SISTER, Onset:30's - 40 Heart disease FATHER, Onset:40's - 50 MOTHER, Onset:40's - 50 SISTER, Onset:40's - 50 History of - respiratory disease MOTHER, Onset:30's - 40 Myocardial infarction SISTER, Onset:50's - 60 ROS: CV: chest pain/tightness irregularly comes and goes Resp: Chronically SOB, worse with exertion, use of accessory muscles noted on inspection Skin: no abnormal lesions/findings Constitutional: admits to n/d but denies vomiting, no chills, or abnormal weight loss Nuero/pshych: denies sensory/motor loss, alert and oriented x3 Exam: General: alert and oriented, happy, no acute distress, WD, fatigued, with poor nutrition CV: RRR, no murmers rubs, gallops, 2+ all distal pulses Respiratory: no signs of clubbing, or cyanotic coloring of lips or digits, use of accesory muscles/ labored breathing, SOB, crackles heard b/l of lower lobes during auscultation skin: clear of any abnormal findings, dry, warm MSK: muscle strength 4/5 on all extremities, limited ROM on LE b/l Labs: hyperglycemia this morning 03/20/22 A: debility chronic lower back pain poor glycemic control ILD P: Aggressive Therapy OT PT Pain medication management Insulin administration/ diet plan KAUSHIK CANDELARIA Mar 20, 2022 15:09 Past Nixbifp-Hebkgn-Omxbac Hx Past Med/Social Hx: Reviewed Nursing Past Med/Soc Hx, Reviewed and Corrections made Patient Social History Marrital Status: Employed/Student: retired Alcohol Use: Denies Use Smoking Status: Former Smoker Immunizations Up To Date Date of Pneumonia Vaccine: Jan 17, 2005 Date of Influenza Vaccine: Jan 17, 2022 Seasonal Allergies Seasonal Allergies: No Past Medical History Respiratory: COPD, Emphysema, Pneumonia Currently Using CPAP: No Currently Using BIPAP: No Cardiac: Cardiomyopathy, High Cholesterol, Hypertension Reproductive: Yes Sexually Transmitted Disease: No HIV/AIDS: No Female Reproductive Disorders: Endometriosis, Ovarian Cyst Genitourinary: Kidney Stones Gastrointestinal: Gastroesophageal Reflux, Alcazar's Esophagus, Obstructive Bernard el Musculoskeletal: Fractures Adverse Reaction to Blood Tompkins: No Family History Cancer 03 FATHER, Onset:60 years & older ("Tumor between heart and lungs") Chest pain 09 SISTER, Onset:50's - 60 Congenital heart disease 09 SISTER, Onset:Pre- (Infant sister that at .) Family history: Arthritis 03 FATHER, Onset:50's - 60 Family history: Asthma 03 MOTHER, Onset:50's - 60 Family history: Cardiovascular disease 03 FATHER, Onset:Unknown 03 MOTHER, Onset:Unknown 09 SISTER, Onset:60 years & older Family history: Diabetes mellitus 03 FATHER, Onset:50's - 60 Family history: Hypertension 03 FATHER, Onset:40's - 50 03 MOTHER, Onset:40's - 50 09 SISTER, Onset:30's - 40 Heart disease 03 FATHER, Onset:40's - 50 03 MOTHER, Onset:40's - 50 09 SISTER, Onset:40's - 50 History of - respiratory disease 03 MOTHER, Onset:30's - 40 Myocardial infarction 09 SISTER, Onset:50's - 60 No Family History of: Abdominal aortic aneurysm Elgin's disease Alcoholism Aphasia Cancer of colon Cataract Congestive heart failure Cystic fibrosis Dementia Dysphagia Family history: Allergy Family history: Alzheimer's disease Family history: Breast disease Family history: Coronary thrombosis Family history: Gastrointestinal disease Family history: Glaucoma Family history: Osteoporosis Family history: Thyroid disorder Headache Hearing loss Hereditary disease History of - anemia History of - disorder History of drug abuse Human immunodeficiency virus (HIV) seropositivity Hypercholesterolemia Infertile Kidney disease Malignant neoplasm of lung Parkinson's disease Prostate cancer Psychotic disorder Seizure disorder Stroke Tuberculosis Visual impairment Heart Disease, CAD Over 55 Years Old PM&R Allergy/Meds/Data Review Allergies Coded Allergies: metoclopramide (Verified Allergy, Mild, 08/08/12) erythromycin base (Verified Allergy, Unknown, 08/08/12) morphine (Verified Allergy, Unknown, pt has rec Lortab & Hydromorphone in the past, 03/20/22) Home Medications Scheduled Adalimumab (Humira), 20 MG SQ WED, (Reported) Albuterol Sulfate (Albuterol Sulfate), 2.5 MG INH HS, (Reported) Biotin (Biotin), 10,000 MCG PO DAILY, (Reported) Budesonide/Formoterol Fumarate (Symbicort 160-4.5 Mcg Inhaler), 2 PUFF INH BID, (Reported) Bumetanide (Bumetanide), 2 MG PO DAILY, (Reported) Calcium Carbonate (Calcium), 600 MG PO BID, (Reported) Cholecalciferol (Vitamin D3) (Vitamin D3), 50 MCG PO DAILY, (Reported) Cyanocobalamin (Cyanocobalamin Injection), 1,000 MCG IM MONTHLY, (Reported) Estradiol (Estradiol Tablet), 0.5 MG PO DAILY, (Reported) Lactobacillus Rhamnosus GG (Culturelle), 1 EACH PO DAILY, (Reported) Metoprolol Succinate (Metoprolol Succinate), 50 MG PO BID, (Reported) Nintedanib Esylate (Ofev), 100 MG PO BID, (Reported) Omeprazole (Omeprazole), 40 MG PO BID, (Reported) Potassium Chloride (Klor-Con M10), 10 MEQ PO BID, (Reported) Prednisone (Prednisone), 10 MG PO BID, (Reported) Pregabalin (Pregabalin), 100 MG PO DAILY, (Reported) Pregabalin (Pregabalin), 200 MG PO HS, (Reported) Sacubitril/Valsartan (Entresto 24 mg-26 mg Tablet), 1 TAB PO BID, (Reported) Umeclidinium Alto (Incruse Ellipta), 1 PUFF INH HS, (Reported) Scheduled PRN Acetaminophen (Acetaminophen), 1,000 MG PO Q6H PRN for PAIN-MILD (1-4), (Reported) Albuterol Sulfate (Albuterol Sulfate), 3 ML NEB Q6H PRN for SHORTNESS OF BREATH, (Reported) Albuterol Sulfate (Proventil Hfa), 2 PUFF Q6H PRN for SHORTNESS OF BREATH, ( Reported) Fexofenadine HCl (Oma Allergy), 180 MG PO DAILY PRN for ALLERGY SYMPTOMS, (Reported) Hydrocortisone/Pramoxine (Hydrocort-Pramoxine 2.5-1% Crm), 1 APPLIC RC BID PRN for HEMMORRHOID DISCOMFORT, (Reported) Ondansetron (Ondansetron Odt), 4 MG PO Q6H PRN for SHORTNESS OF BREATH, (Reported) Discontinued Medications Albuterol Sulfate (Ventolin Hfa), 2 PUFF IH Q4H, (Reported) Discontinued Reason: No Longer Taking Calcium Carbonate/Vitamin D3 (Calcium + Vitamin D Tablet), 1 EACH PO BID, (Reported) Discontinued Reason: No Longer Taking Spironolactone (Spironolactone), 25 MG PO DAILY, (Reported) Discontinued Reason: No Longer Taking [Breo Ellipta], Unknown Dose DAILY, (Reported) Discontinued Reason: No Longer Taking [Humira], Unknown Dose WEEK, (Reported) Discontinued Reason: No Longer Taking [Vitamin D3], Unknown Dose DAILY, (Reported) Discontinued Reason: No Longer Taking [Vitamin E], Unknown Dose DAILY, (Reported) Discontinued Reason: No Longer Taking Current Medications Current Medications Reviewed Review of Systems Constitutional: see HPI, weakness EENTM: no symptoms reported Respiratory: cough, dyspnea on exertion Cardiovascular: no symptoms reported Gastrointestinal: no symptoms reported Genitourinary: no symptoms reported Musculoskeletal: back pain, joint pain Skin: no symptoms reported Psychiatric/Neurological: Anxiety, Depressed All Other Systems Reviewed Negative Unless Noted: Yes Physical Exam Physical Exam Vital Signs Capillary Refill : Height, Weight, BMI Height: 5'1.50" Weight: 140lbs. 0.0oz. [id number]; 29.55 BMI Method:Stated General Appearance: WD/WN, Anxious, Chronically ill, Mild Distress Eyes: Bilateral Eye Normal Inspection, Bilateral Eye PERRL HEENT: PERRL/EOMI, Normal ENT Inspection, Pharynx Normal Neck: Full Range of Motion, Normal Inspection, Non Tender, Supple, Carotid Bruit Respiratory: Chest Non Tender, Lungs Clear, No Accessory Muscle Use, No Respiratory Distress, Decreased Breath Sounds Cardiovascular: Regular Rate, Rhythm, No Edema, No Gallop, No JVD, No Murmur, Normal Peripheral Pulses Gastrointestinal: Normal Bowel Sounds, No Organomegaly, No Pulsatile Mass, Non Tender, Soft Back: Normal Inspection, No CVA Tenderness, No Vertebral Tenderness Extremity: Normal Capillary Refill, Normal Inspection, Normal Range of Motion, Non Tender, No Calf Tenderness, No Pedal Edema Neurologic/Psychiatric: Alert, Oriented x3, Normal 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, 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 Norm as Tested, Abnormal Gait, Motor Weakness (severe weakness 3/5 all extremities) Skin: Normal Color, Warm/Dry Lymphatic: No Adenopathy PM&R Medical Assessment & Plan REHAB/MEDICAL ASSESSMENT AND PLAN: REHAB IMPAIRMENT GROUP: Debility ETIOLOGIC DIAGNOSIS: Debility The comorbidities that impact the patients function and/or functional outcome by: Interstitial lung disease, chronic O2 dependent 4L/min, CHF, DM, chronic debility REHAB PLAN: The patient is being admitted to our comprehensive inpatient rehabilitation facility and can tolerate the intensity of service consisting of at least: 180 minutes of therapy a day, 5 out of 7 days a week Rehab treatment will consist of: PT OT will focus on regaining function in order to build stamina with use of AD and increase ADL's in order to return home The patient/family has a good understanding of our discharge process and will benefit from an interdisciplinary inpatient rehabilitation program. The patient has potential to make improvement and is in need of at least two of the following multidisciplinary therapies including but not limited to physical, occupational, speech, and prosthetics and orthotics. Additionally the patient will need services from respiratory, nutritional services, wound care, psychology, etc. (Customize this to each patient). Given the patients complex condition and risk of further medical complications, rehabilitation services cannot be safely or effectively provided at a lower level of care such as a senior living facility. BARRIERS TO DISCHARGE: Hypoxia ESTIMATED LOS: 7 days DISPOSITION: Home RELEVANT CHANGES SINCE PREADMISSION SCREENING: I have compared the patients medical and functional status at the time of the preadmission screening and there are: no changes PROGNOSIS: Fair REHABILITATION GOALS: 1. PT OT will focus on regaining function in order to build stamina with use of AD and increase ADL's in order to return home All the above goals were reviewed with the patient and he/she is in agreement. By signing this document, I acknowledge that I have personally performed a full physical examination on this patient within 24 hours of admission to this inpatient rehabilitation facility and have determined the patient to be able to tolerate the above course of treatment at an intensive level for a reasonable period of time. I will be completing a detailed individualized Plan of Care for this patient by day #4 of the patients stay based upon the Preadmission Screen, the Post-Admission Evaluation, and the therapy evaluations. Admission Dx/Comorbidities: (1) Influenza Status: Acute ICD Codes: J11.1 - Influenza due to unidentified influenza virus with other respiratory manifestations (2) Interstitial lung disease Status: Chronic ICD Codes: J84.9 - Interstitial pulmonary disease, unspecified (3) Chronic respiratory failure Status: Chronic ICD Codes: J96.10 - Chronic respiratory failure, unspecified whether with hypoxia or hypercapnia (4) General weakness Status: Acute ICD Codes: R53.1 - Weakness (5) Adrenal insufficiency ICD Codes: E27.40 - Unspecified adrenocortical insufficiency Assessment/Plan Assessment and Plan Assess & Plan/Chief Complaint Assessment: Acute on chronic respiratory failure Flu A Interstitial lung disease Chronic O2 dependence 4L/min CHF DM Adrenal insufficiency Plan: Monitor closely O2 Home meds Monitor closely YOSELIN GUTIERREZ DO Mar 20, 2022 12:23
[2022-03-20] MEDS ORDERED: ACETAMINOPHEN 325 MG TABLET PO PRN (12:30)
[2022-03-20] MEDS ORDERED: BISACODYL 10 MG SUPP (DULCOLAX) PR PRN (12:30)
[2022-03-20] MEDS ORDERED: DOCUSATE SODIUM 100 MG (COLACE) CAP PO PRN (12:30)
[2022-03-20] MEDS ORDERED: FLEET ENEMA ADULT 1 EA BTL PR PRN (12:30)
[2022-03-20] MEDS ORDERED: diphenhydrAMINE 25 MG TAB (BENADRYL) PO PRN (12:30)
[2022-03-20] MEDS ORDERED: MELATONIN 3 MG TABLET PO PRN (12:30)
[2022-03-20] MEDS ORDERED: ONDANSETRON 4 MG (ZOFRAN) ORAL DISSOLVE TAB PO PRN ×2 (12:30→20:00)
[2022-03-20] MEDS ORDERED: LACTULOSE SYRUP 10GM/15ML (ENULOSE) 30ML UDC PO PRN (12:30)
[2022-03-20] MEDS ORDERED: CALCIUM CARBONATE 500 MG (TUMS) TAB.CHEW PO PRN (12:30)
[2022-03-20] MEDS ORDERED: LOPERAMIDE 2 MG (IMODIUM) TABLET PO PRN (12:30)
[2022-03-20] MEDS ORDERED: ALPRAZolam 0.25 MG (XANAX) TAB PO PRN (12:30)
--- NOTE | 2022-03-20 13:57 | Occupational Therapy Eval ---
OT Evaluation-General/PLF Medical Diagnosis Admission Date Mar 20, 2022 at 13:15 Medical Diagnosis: Influenza A Onset Date: Mar 19, 2022 Therapy Diagnosis Therapy Diagnosis: reduced adl status Height/Weight Height (Feet): 5 Height (Inches): 1.50 Weight (Pounds): 140 Weight (Ounces): 0.0 Precautions Precautions/Isolations: Droplet Isolation, Fall Prevention Referral Physician: Yue Referral Reason: Evaluation/Treatment Medical History Pertinent Medical History: GERD Current History Pt presented to hospital with c/o weakness. Reports testing positive for Influenza A. Per patient, she lives with her spouse who is also admitted to the hospital for weakness secondary to the flu. She was indep with adls. She does not wear socks, only slip on shoes. She has a chairlift operator once every other week and her spouse does all of the cooking. She uses a cane only when outdoors. Reviewed History: Yes Social History Home: Single Level Current Living Status: Spouse Entry Into Home: Level Entry ADL-Prior Level of Function SCALE: Activities may be completed with or without assistive devices. 2-Qegqwxqwxm-afjzagx completes the activity by him/herself with no assistance from a helper. 5-Set-up or Clean-up Assistance-helper sets up or cleans up; patient completes activity. [place] assists only prior to or following the activity. 4-Supervision or Touching Assistance-helper provides verbal cues and/or touching/steadying and/or contact guard assistance as patient completes activity. Assistance may be provided throughout the activity or intermittently. 3-Partial/Moderate Assistance-helper does LESS THAN HALF the effort. [place] lifts, holds or supports trunk or limbs, but provides less than half the effort. 2-Substantial/Maximal Assistance-helper does MORE THAN HALF the effort. [place] lifts or holds trunk or limbs and provides more than half the effort. 4-Zjznwscii-qksmor does ALL the effort. Patient does none of the effort to complete the activity. Or, the assistance of 2 or more helpers is required for the patient to complete the activity. If activity was not attempted, code reason: 7-Patient Refused. 9-Not Applicable-not attempted and the patient did not perform the activity before the current illness, exacerbation or injury. 10-Not Attempted due to Environmental Limitations-(lack of equipment, weather restraints, etc.). 88-Not Attempted due to Medical Conditions or Safety Concerns. Self Care: Independent Functional Cognition: Independent DME/Equipment: Bath Chair, Grab Bars, Shower Drive Self: No OT Current Status Subjective Pt reports she was feeling nauseous earlier but is feeling much better currently. Co-treat with PT for part of treatment secondary to weakness, fatigue, and anticipated need of 2 skilled clinicians to progress indep and safety with adls and functional mobility. Appearance Pt left sitting in shower with HICKEY taking over treatment. Mental Status/Objective Patient Orientation: Person, Place, Situation Attachments: IV, Oxygen Current Glasses/Contacts: Yes Hand Dominance: Left Upper Extremity ROM WFL Upper Extremity Strength 3+/5 grossly ADL-Treatment Eating (QC): 6 Oral Hygiene (QC): 4 Shower/Bathe Self (QC): 4 Upper Body Dressing (QC): 4 Lower Body Dressing (QC): 4 On/Off Footwear (QC): 4 (slip on shoes only) Toileting Hygiene (QC): 4 Pt ambulated within room with SBA and use of walker. Min cues for improved walker management. She completed all steps of toileting including clothing management and jessica care with SBA. Clothing doffed with extra time and verbal cues but no physical assist. Pt stood at sink to wash hands with supervision; anticipate no difficulty to stand and brush teeth. Verbal Cues for safety as she transfers into shower. Shower performed; majority completed in sitting. Pt able to demonstrate ability to wash bilateral feet with use of cross over method. She does require use of UE's to lift and cross leg over contralateral knee but no physical assistance needed. Pt able to demonstrate ability to wash bilateral axillas without difficulty and no LOB when washing buttocks/jessica area. Pt does fatigue during activity and requires short rest breaks prior to returning to activity. HICKEY enters room to take over treatment. Education OT Patient Education: Energy conservation, Purpose of tx/functional activities, Safety issues, Transfer techniques Teaching Recipient: Patient Teaching Methods: Demonstration, Discussion Response to Teaching: Verbalize Understanding, Return Demonstration, Reinforcement Needed BIMS CAM BIMS Expression of Ideas and Wants: Without Difficulty Understanding Verbal Content: Understands Brief Interview/Mental Status: Yes IRF JEEVAN BIMS: IRF JEEVAN BIMS Response (Comments) Value Repitition of Three Words Three 3 Recalls Socks Yes, No Cue Required 2 Recalls Blue Yes, No Cue Required 2 Recalls Bed Yes, No Cue Required 2 Year Correct 3 Month Accurate Within 5 Days 2 Day Correct 1 Total [address] Mental [address] No Notes: 15 CAM Mental Status Change/Baseline: 0 Inattention: 0 Disorganized thinkin Altered level of consciousness: 0 OT Short Term Goals Short Term Goals Time Frame: Mar 25, 2022 Eatin Oral hygiene: 5 Toileting hygiene: 5 Shower/bathe self: 5 Upper body dressin Lower body dressin Putting on/taking off footwear: 5 OT Biomedical Engineering Director Goals Biomedical Engineering Director Goals Time Frame: Mar 31, 2022 Eating (QC): 6 Oral Hygiene (QC): 6 Toileting Hygiene (QC): 6 Shower/Bathe Self (QC): 5 Upper Body Dressing (QC): 6 Lower Body Dressing (QC): 6 On/Off Footwear (QC): 6 Additional Goals: 1-Demonstrate ADL Tasks, 2-Verbalize Understanding, 3- ImproveStrength/June 1=Demonstrate adherence to instructed precautions during ADL tasks. 2=Patient will verbalize/demonstrate understanding of assistive devices/modifications for ADL. 3=Patient will improve strength/tolerance for activity to enable patient to perform ADL's. Anticipate short stay OT Education/Plan Problem List/Assessment Assessment: Decreased Activ Tolerance, Decreased UE Strength, Impaired Funct Balance, Impaired I ADL's, Impaired Self-Care Skills Discharge Recommendations Plan/Recommendations: Continue POC Therapy Discharge Recommendati: Home & Family Treatment Plan/Plan of Care Treatment,Training & Education: Yes Patient would benefit from OT for education, treatment and training to promote independence in ADL's, mobility, safety and/or upper extremity function for ADL's. Plan of Care: ADL Retraining, Functional Mobility, UE Funct Exercise/Act Treatment Duration: Mar 31, 2022 Frequency: At least 5 of 7 days/Wk (IRF) Estimated Hrs Per Day: 1.5 hours per day (75-90 min/day ) Agreement: Yes Rehab Potential: Good Time Start Time: 13:15 Stop Time: 13:50 DATE: Mar 20, 2022 Total Time Billed (hr/min): 35 Billed Treatment Time 1 visit EVL (10 min) ADL (25 min) OT eval: [id number] (10 min) Co-treat: [id number] (25 min) Mari Lopez OT Mar 20, 2022 13:57
--- NOTE | 2022-03-20 14:45 | Physical Therapy Evaluation ---
PT Evaluation-General Medical Diagnosis Admission Date Mar 20, 2022 at 13:15 Medical Diagnosis: Influenza A, debility Onset Date: Mar 19, 2022 Therapy Diagnosis Therapy Diagnosis: Generalized Weakness Height/Weight Height (Feet): 5 Height (Inches): 1.50 Weight (Pounds): 140 Weight (Ounces): 0.0 Precautions Precautions/Isolations: Droplet Isolation, Fall Prevention Weight Bear Status Right Lower Extremity: Right Full Weight Bearing Left Lower Extremity: Left Full Weight Bearing Referral Physician: Yue Reason for Referral: Evaluation/Treatment Medical History Pertinent Medical History: GERD Additional Medical History Reproductive Disorders: Yes Female Reproductive Disorders: Endometriosis, Ovarian Cyst Sexually Transmitted Disease: No HIV/AIDS: No Kidney Stones Gastroesophageal Reflux, Alcazar's Esophagus, Obstructive Bowel Fractures Adverse Reaction/Blood Tranf: No Reviewed History: Yes Social History Home: Single Level Current Living Status: Spouse Entry Into Home: Level Entry Prior Prior Level of Function SCALE: Activities may be completed with or without assistive devices. 8-Jzdrqokdrs-yksxgct completes the activity by him/herself with no assistance from a helper. 5-Set-up or Clean-up Assistance-helper sets up or cleans up; patient completes activity. [place] assists only prior to or following the activity. 4-Supervision or Touching Assistance-helper provides verbal cues and/or touching/steadying and/or contact guard assistance as patient completes activity. Assistance may be provided throughout the activity or intermittently. 3-Partial/Moderate Assistance-helper does LESS THAN HALF the effort. [place] li fts, holds or supports trunk or limbs, but provides less than half the effort. 2-Substantial/Maximal Assistance-helper does MORE THAN HALF the effort. [place] lifts or holds trunk or limbs and provides more than half the effort. 8-Ynconyiit-hpmvim does ALL the effort. Patient does none of the effort to complete the activity. Or, the assistance of 2 or more helpers is required for the patient to complete the activity. If activity was not attempted, code reason: 7-Patient Refused. 9-Not Applicable-not attempted and the patient did not perform the activity before the current illness, exacerbation or injury. 10-Not Attempted due to Environmental Limitations-(lack of equipment, weather restraints, etc.). 88-Not Attempted due to Medical Conditions or Safety Concerns. Bed Mobility: 6 Transfers (B,C,W/C): 6 Gait: 6 Indoor Mobility (Ambulation): Independent Stairs: Not Applicalbe Prior Device Use: cane PT Evaluation-Current Subjective Patient in bed pre-tx on 4th floor, brought down to 2nd floor rehab, reports some dizziness/nausea but just got meds for it, agrees to PT. Will co-treat with OT due to increased fatigue levels and decreased endurance, Influenza A being confined to her room, SOB, nausea with activity, coordinate UE and LE during activity, safety and reduce risk of falls. Pain Section J - Health Conditions 1. Rarely or not at all 2. Occasionally 3. Frequently 4. Almost constantly 8. Unable to answer Pain Effect on Sleep: 1 Pain Interference with Therapy: 1 Pain Interference w/Day-to-Day: 1 Pt/Family Goals Return home to independence Objective Patient Orientation: Person, Place, Situation Attachments: Oxygen ROM/Strength ROM Lower Extremities BLE grossly WNL Strength Lower Extremities BLE hip flexion 3+/5, knee extension 5/5, knee flexion 4-/5, DF 4+/5 Sensory Hearing: Functional Hand Dominance: Left Sensation Right Lower Extremit: Intact Sensation Left Lower Extremity: Intact Transfers Roll Left & Right (QC): 4 Sit to Lying (QC): 4 Lying to Sitting/Side of Bed(Q: 4 Sit to Stand (QC): 4 Chair/Lxt-mu-Qloqu Xfer(QC): 4 Toilet Transfer (QC): 4 Car Transfer (QC): 4 SBA for bed mobility and transfers Gait Does the Patient Walk?: Yes Mode of Locomotion: Walk Anticipated Mode of Locomotion: Walk Walk 10 feet (QC): 4 Walk 50 ft with 2 Turns(QC): 88 Walk 150 ft (QC): 88 Walking 10ft/uneven surface-QC: 4 (CGA) Distance: 40' Gait Assistive Device: FWW Comments/Gait Description SBA with ambulation, patient walks with decreased gait speed, decreased foot clearance, decreased step length, but steady balance. Patient get very SOB with ambulation or any activity really. Wheelchair Training Wheel 50 ft with 2 turns (QC): 9 Wheel 150 ft (QC): 9 Stairs #of Steps: 1 1 Step (curb) (QC): 4 (CGA) 4 Steps (QC): 10 12 Steps (QC): 10 Walking Assistive Device: Walker Balance Sitting Static: Normal Sitting Dynamic: Normal Standing Static: Normal Standing Dynamic: Normal Picking up an Object (QC): 4 (CGA) Treatment OT did bathing, oral hygiene, toileting, dressing, grooming, UE mobility while PT did LE positioning and safety. PT did transfers, bed mobility, stairs, picking up an object off the floor, ambulation while OT did UE positioning and safety. Assessment/Needs Patient gets SOB often and can only ambulate 40' before sitting down to take a rest. Patient has severely decreased endurance and increased fatigue levels. Patient in bed post-tx with nurse call, phone, tray, family in room, all needs met. Rehab Potential: Fair PT Short Term Goals Short Term Goals Time Frame: Mar 27, 2022 Walk 50 feet with two turns: 4 (SBA) Walk 150 feet: 4 (SBA) Walking 10ft on uneven surface: 4 (SBA) 1 step (curb): 4 (SBA) Picking up objects: 4 (SBA) PT Half-Way Goals Half-Way Goals PT Half-Way Goals Time Frame: Apr 10, 2022 Roll Left to Right (QC): 6 Sit to Lying (QC): 6 Lying-Sitting on Side/Bed(QC): 6 Sit to Stand (QC): 6 Chair/Ahv-mj-Rkoou Xfer(QC): 6 Toilet/Commode Transfer (QC): 6 Car Transfer (QC): 6 Does the Patient Walk: Yes Walk 10 feet (QC): 6 Walk 10ft-Uneven Surface(QC): 6 Walk 50ft with 2 Turns (QC): 6 Walk 150 ft (QC): 6 Wheel 50 feet with 2 turns (QC: 9 Wheel 150 feet: 9 1 Step (curb) (QC): 6 4 Steps (QC): 6 12 Steps (QC): 88 Picking up an Object (QC): 6 PT Plan Problem List Problem List: Activity Tolerance, Functional Strength, Safety, Balance, Gait, Transfer, Bed Mobility, ROM Treatment/Plan Treatment Plan: Continue Plan of Care Treatment Plan: Bed Mobility, Education, Functional Activity June, Functional Strength, Gait, Safety, Therapeutic Exercise, Transfers Treatment Duration: Mar 27, 2022 Frequency: At least 5 of 7 days/Wk (IRF) Estimated Hrs Per Day: 1.5 hours per day Patient and/or Family Agrees t: Yes Safety Risks/Education Patient Education: Gait Training, Transfer Techniques, Steps, Correct Positioning, Safety Issues Teaching Recipient: Patient Teaching Methods: Demonstration, Discussion Response to Teaching: Reinforcement Needed Discharge Recommendations Plan Patient will perform bed mobility and transfer training, endurance and balance training, gait training, functional strengthening in order to be independent at home. Therapy Discharge Recommendati: Home & Family Time Time In: 1305 Time Out: 1445 DATE: Mar 20, 2022 Total Billed Treatment Time: 90 Total Billed Treatment 1 visit EVM 10' FA x5 PT Eval [id number] OT Eval [id number] Co-treat [id number] TAYLA GONZALEZ PT Mar 20, 2022 14:45
--- NOTE | 2022-03-20 14:51 | Occupational Ther Daily Note ---
OT Current Status-Daily Note Subjective Took over pt care from OTR at 1350. Co-treat with PT [id number], skills of 2 clinicians required to decrease fall risk, pt's increased O2 needs and increased fatigue. PT focusing on standing, ambulation and transfer while OT focused on functional mobility and ADLs. Mental Status/Objective Patient Orientation: Person, Place, Time, Situation Attachments: IV, Oxygen (4L) ADL-Treatment HICKEY took over care of pt while pt was in shower. Pt cleansed self a 2nd time stating that the shower felt good and she wanted to make sure all the areas were washed completely and rinsed all soap off. Pt sat on shower bench for all bathing except buttocks/jessica (SBA) area using grabbars, hand held shower. Pt transferred out of shower using grabbars and FWW, CGA. After set up, pt complete upper body dressing requiring assist to manipulate O2 tubing and verbal cues for body positioning to don footwear. SBA for lower body dressing. SBA initially while pt stood at sink to complete oral then fatigued and sat to finish. Pt then ambulated to bed and completed bed mobility with PT. After therapy, pt lying in bed with call light/phone in reach. All needs met in room. Therapy Code Descriptions/Definitions Functional [place] Measure: 0=Not Assessed/NA 4=Minimal Assistance 1=Total Assistance 5=Supervision or Setup 2=Maximal Assistance 6=Modified [place] 3=Moderate Assistance 7=Complete IndependenceSCALE: Activities may be completed with or without assistive devices. 7-Hgaaxbaptc-mwvqzjq completes the activity by him/herself with no assistance from a helper. 5-Set-up or Clean-up Assistance-helper sets up or cleans up; patient completes activity. [place] assists only prior to or following the activity. 4-Supervision or Touching Assistance-helper provides verbal cues and/or touch ing/steadying and/or contact guard assistance as patient completes activity. Assistance may be provided throughout the activity or intermittently. 3-Partial/Moderate Assistance-helper does LESS THAN HALF the effort. [place] lifts, holds or supports trunk or limbs, but provides less than half the effort. 2-Substantial/Maximal Assistance-helper does MORE THAN HALF the effort. [place] lifts or holds trunk or limbs and provides more than half the effort. 6-Homqfltor-zuewos does ALL the effort. Patient does none of the effort to complete the activity. Or, the assistance of 2 or more helpers is required for the patient to complete the activity. If activity was not attempted, code reason: 7-Patient Refused. 9-Not Applicable-not attempted and the patient did not perform the activity before the current illness, exacerbation or injury. 10-Not Attempted due to Environmental Limitations-(lack of equipment, weather restraints, etc.). 88-Not Attempted due to Medical Conditions or Safety Concerns. OT Short Term Goals Short Term Goals Time Frame: Mar 25, 2022 Eatin Oral hygiene: 5 Toileting hygiene: 5 Shower/bathe self: 5 Upper body dressin Lower body dressin Putting on/taking off footwear: 5 OT Retirement Goals Match Maker Goals Time Frame: Mar 31, 2022 Acute change in mental status: 0 Inattention: 0 Disorganized thinkin Altered level of consciousness: 0 Eating (QC): 6 Oral Hygiene (QC): 6 Toileting Hygiene (QC): 6 Shower/Bathe Self (QC): 5 Upper Body Dressing (QC): 6 Lower Body Dressing (QC): 6 On/Off Footwear (QC): 6 Additional Goals: 1-Demonstrate ADL Tasks, 2-Verbalize Understanding, 3- ImproveStrength/June 1=Demonstrate adherence to instructed precautions during ADL tasks. 2=Patient will verbalize/demonstrate understanding of assistive devices/modific ations for ADL. 3=Patient will improve strength/tolerance for activity to enable patient to perform ADL's. OT Education/Plan Problem List/Assessment Assessment: Decreased Activ Tolerance, Impaired Funct Balance Discharge Recommendations Plan/Recommendations: Continue POC Treatment Plan/Plan of Care Patient would benefit from OT for education, treatment and training to promote independence in ADL's, mobility, safety and/or upper extremity function for ADL's. Plan of Care: ADL Retraining, Functional Mobility, UE Funct Exercise/Act Treatment Duration: Mar 31, 2022 Frequency: At least 5 of 7 days/Wk (IRF) Estimated Hrs Per Day: 1.5 hours per day (75-90 min/day ) Agreement: Yes Rehab Potential: Good Time Start Time: 13:50 Stop Time: 14:45 DATE: Mar 20, 2022 Total Time Billed (hr/min): 55 Billed Treatment Time 1 visit-ADL 4 (55 min) co-treat with PT [id number] SHERIF MCCORMACK Mar 20, 2022 14:51
[2022-03-20] MEDS ORDERED: ENOXAPARIN 40 MG/0.4 ML (LOVENOX) SYR SC SCH (15:00)
--- NOTE | 2022-03-20 15:09 | Progress Note ---
KAUSHIK CANDELARIA 03/20/22 1509: Progress Note CC: Debility 2/2 influenza A infection HPI: Kiley Seymour is a 76yo with h/o ILD who presented to the ED 03/18/22brought in by her son because of sever fatigue and weakness, she tested positive for influenza A and was admitted to [facility]. She is now being transfered to the ARU because her of 60 years is also a patient at the same hospital due to heart problems and she needs assistance in regaining functional strength. She was seen with her son and his . She has a secondary complaint of chronic back pain that feels worse with her weakened state. PMH: Endometriosis, Ovarian Cyst, Kidney Stones, Gastroesophageal Reflux, Alcazar's Esophagus, Intestinal adhesions, Obstructive Bowel, vertebral Fractures, blood transfusions (no adverse effects), PSH: Multiple intestinal adhesion removals, back surgery for broken spine All: artificial sweetener(migraines), Abatacept(anaphylaxis), silicone tape(rash), erythromycin (n/v/d), Hydrochlorothiazide (rash), Methotrexate (HTN), metoclopramide (anxiety), Morphine (syncope), tocilizumab (hives), tramadol (dizziness) Meds: Adalimumab (Humira), 20 MG SQ WED, (Reported) Albuterol Sulfate (Albuterol Sulfate), 2.5 MG INH HS, (Reported) Biotin (Biotin), 10,000 MCG PO DAILY, (Reported) Budesonide/Formoterol Fumarate (Symbicort 160-4.5 Mcg Inhaler), 2 PUFF INH BID, (Reported) Bumetanide (Bumetanide), 2 MG PO DAILY, (Reported) Calcium Carbonate (Calcium), 600 MG PO BID, (Reported) Cholecalciferol (Vitamin D3) (Vitamin D3), 50 MCG PO DAILY, (Reported) Cyanocobalamin (Cyanocobalamin Injection), 1,000 MCG IM MONTHLY, (Reported) Estradiol (Estradiol Tablet), 0.5 MG PO DAILY, (Reported) Lactobacillus Rhamnosus GG (Culturelle), 1 EACH PO DAILY, (Reported) Metoprolol Succinate (Metoprolol Succinate), 50 MG PO BID, (Reported) Nintedanib Esylate (Ofev), 100 MG PO BID, (Reported) Omeprazole (Omeprazole), 40 MG PO BID, (Reported) Potassium Chloride (Klor-Con M10), 10 MEQ PO BID, (Reported) Prednisone (Prednisone), 10 MG PO BID, (Reported) Pregabalin (Pregabalin), 100 MG PO DAILY, (Reported) Pregabalin (Pregabalin), 200 MG PO HS, (Reported) Sacubitril/Valsartan (Entresto 24 mg-26 mg Tablet), 1 TAB PO BID, (Reported) Umeclidinium [place] (Incruse Ellipta), 1 PUFF INH HS, (Reported) Scheduled PRN Acetaminophen (Acetaminophen), 1,000 MG PO Q6H PRN for PAIN-MILD (1-4), (Reported) Albuterol Sulfate (Albuterol Sulfate), 3 ML NEB Q6H PRN for SHORTNESS OF BREATH, (Reported) Albuterol Sulfate (Proventil Hfa), 2 PUFF Q6H PRN for SHORTNESS OF BREATH, (Reported) Fexofenadine HCl (Oma Allergy), 180 MG PO DAILY PRN for ALLERGY SYMPTOMS, ( Reported) Hydrocortisone/Pramoxine (Hydrocort-Pramoxine 2.5-1% Crm), 1 APPLIC RC BID PRN for HEMMORRHOID DISCOMFORT, (Reported) Ondansetron (Ondansetron Odt), 4 MG PO Q6H PRN for SHORTNESS OF BREATH, (Reported) SH: for 60 years to (77), mother to 3 children, retired, Denies use of Alcohol, tobacco, recreational drugs, caffeine consumption from 3+ pepsis/day, poor glycemic control because of her diet FH: Cancer FATHER, Onset:60 years & older ("Tumor between heart and lungs") Chest pain SISTER, Onset:50's - 60 Congenital heart disease SISTER, Onset:Pre- ( sister that at .) Family history: Arthritis FATHER, Onset:50's - 60 Family history: Asthma MOTHER, Onset:50's - 60 Family history: Cardiovascular disease FATHER, Onset:Unknown MOTHER, Onset:Unknown SISTER, Onset:60 years & older Family history: Diabetes mellitus FATHER, Onset:50's - 60 Family history: Hypertension FATHER, Onset:40's - 50 MOTHER, Onset:40's - 50 SISTER, Onset:30's - 40 Heart disease FATHER, Onset:40's - 50 MOTHER, Onset:40's - 50 SISTER, Onset:40's - 50 History of - respiratory disease MOTHER, Onset:30's - 40 Myocardial infarction SISTER, Onset:50's - 60 ROS: CV: chest pain/tightness irregularly comes and goes Resp: Chronically SOB, worse with exertion, use of accessory muscles noted on inspection Skin: no abnormal lesions/findings Constitutional: admits to n/d but denies vomiting, no chills, or abnormal weight loss Nuero/pshych: denies sensory/motor loss, alert and oriented x3 Exam: General: alert and oriented, happy, no acute distress, WD, fatigued, with poor nutrition CV: RRR, no murmers rubs, gallops, 2+ all distal pulses Respiratory: no signs of clubbing, or cyanotic coloring of lips or digits, use of accesory muscles/ labored breathing, SOB, crackles heard b/l of lower lobes during auscultation skin: clear of any abnormal findings, dry, warm MSK: muscle strength 4/5 on all extremities, limited ROM on LE b/l Labs: hyperglycemia this morning 03/20/22 A: debility chronic lower back pain poor glycemic control ILD P: Aggressive Therapy OT PT Pain medication management Insulin administration/ diet plan LETHA GUTIERREZ DO 03/21/22 0629: Supervisory-Addendum Brief Verification & Attestation Participated in pt care: history, MDM, physical Personally performed: exam, history, MDM, supervision of care Care discussed with: Medical Student Procedures: n/a Results interpretation: Verified all documentation Verification and Attestation of Medical Student E/M Service A medical student performed and documented this service in my presence. I reviewed and verified all information documented by the medical student and made modifications to such information, when appropriate. I personally performed the physical exam and medical decision making. Letha Gutierrez Mar 21, 2022,06:29 KAUSHIK CANDELARIA Mar 20, 2022 15:09 LETHA GUTIERREZ DO Mar 21, 2022 06:29
[2022-03-20 16:58] VITALS: BP 110/74
[2022-03-20] MEDS ORDERED: HYDROCORTISONE RC PRN (20:00)
[2022-03-20] MEDS ORDERED: NON-FORMULARY MEDICATION 1 EA EA (Fexofenadine HCl (Allegra Allergy) 180 MG) PO PRN (20:00)
[2022-03-20] MEDS ORDERED: ACETAMINOPHEN 500 MG TAB (TYLENOL) PO PRN (20:00)
[2022-03-20] MEDS ORDERED: RT-ALBUTEROL SULF 2.5 MG/3 ML PRE-MIX VIAL IH PRN (20:00)
[2022-03-20] MEDS ORDERED: CYANOCOBALAMIN INJ 1000 MCG/ML IM SCH (20:00)
[2022-03-20] MEDS ORDERED: ADALIMUMAB 20 MG SQ SCH (20:00)
[2022-03-20] MEDS ORDERED: PRAMOXINE RC PRN (20:00)
[2022-03-20] MEDS ORDERED: [UNRECOGNIZED DRUG - OTHER] RC PRN (20:00)
[2022-03-20] MEDS ORDERED: RT-ALBUTEROL HFA 8.5 GM INHALER IH PRN (20:15)
[2022-03-20] MEDS ORDERED: LORATADINE (CLARITIN) 10 MG TAB PO PRN (20:15)
[2022-03-20 20:43] VITALS: BP 111/56
[2022-03-20] MEDS: polyethylene glycoL POWDER 17 GM (MIRALAX) PACK PO SCH (20:45)
[2022-03-20] MEDS: DOCUSATE SODIUM 100 MG (COLACE) CAP PO SCH (20:45)
[2022-03-20] MEDS: SENNA W/DOCUSATE (SENOKOT S) TABLET PO SCH (20:45)
[2022-03-20] MEDS: meTOproloL SUCCINATE 50 MG (TOPROL XL) TAB PO SCH (20:46)
[2022-03-20] MEDS: CALCIUM CARBONATE 600 MG (CALCARB) TAB PO SCH (20:46)
[2022-03-20] MEDS: KCL 10 MEQ TAB (MICRO K) PO SCH (20:47)
[2022-03-20] MEDS: SACUBITRIL/VALSARTAN 24/26 MG (ENTRESTO) TABLET PO SCH (20:47)
[2022-03-20] MEDS: predniSONE 10 MG TAB PO SCH (20:47)
[2022-03-20] MEDS ORDERED: NON-FORMULARY MEDICATION 1 EA EA (Omeprazole 40 MG) PO SCH (21:00)
[2022-03-20] MEDS ORDERED: PREGABALIN 100 MG (LYRICA) CAPSULE PO SCH (21:00)
[2022-03-20] MEDS ORDERED: RT--FLUTICASONE/SALMETEROL 232-14 (AIRDUO RespiCLICK) IH SCH (21:00)
[2022-03-20] MEDS ORDERED: UMECLIDINIUM BROMIDE (INCRUSE ELLIPTA) 7'S IH SCH (21:00)
[2022-03-20] MEDS ORDERED: RT-ALBUTEROL SULF 2.5 MG/3 ML PRE-MIX VIAL INH SCH (21:00)
[2022-03-20] MEDS ORDERED: NINTEDANIB ESYLATE 100 MG PO SCH (21:00)
[2022-03-20] MEDS: PANTOPRAZOLE 40 MG (PROTONIX) TAB PO SCH (22:17)
[2022-03-21] MEDS: guaiFENesin/CODEINE (ROBITUSSIN AC) 10ML UDC PO PRN ×2 (05:04→08:57)
--- NOTE | 2022-03-21 06:49 | PM&R Progress Note ---
Subjective HPI/CC On Admission Date Seen by Provider: Mar 21, 2022 Time Seen by Provider: 12:30 Subjective/Events-last exam 03/21/2022: Review of Systems General: Fatigue, Malaise Focused Exam Lactate Level 03/21/22 10:35: Lactic Acid Level 2.24*H Lactic Acid Level Laboratory Tests Test 03/21/22 10:35 Lactic Acid Level 2.24 MMOL/L (0.50-2.00) *H Objective Exam Vital Signs Vital Signs Date Time Temp Pulse Resp B/P (MAP) Pulse Ox O2 Delivery O2 Flow Rate FiO2 03/21/22 09:00 Nasal Cannula 4.00 03/21/22 08:45 40.2 64 18 135/61 (85) 90 Capillary Refill : General Appearance: WD/WN, Anxious, Chronically ill, Mild Distress HEENT: PERRL/EOMI, Normal ENT Inspection, Pharynx Normal Neck: Full Range of Motion, Normal Inspection, Non Tender, Supple, Carotid Bruit Respiratory: Chest Non Tender, Lungs Clear, No Accessory Muscle Use, No Respiratory Distress, Decreased Breath Sounds Cardiovascular: Regular Rate, Rhythm, No Edema, No Gallop, No JVD, No Murmur, Normal Peripheral Pulses Gastrointestinal: Normal Bowel Sounds, No Organomegaly, No Pulsatile Mass, Non Tender, Soft Back: Normal Inspection, No CVA Tenderness, No Vertebral Tenderness Extremity: Normal Capillary Refill, Normal Inspection, Normal Range of Motion, Non Tender, No Calf Tenderness, No Pedal Edema Neurologic/Psychiatric: Alert, Oriented x3, Normal 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 FIM Transfers Therapy Code Descriptions/Definitions Functional [place] Measure: 0=Not Assessed/NA 4=Minimal Assistance 1=Total Assistance 5=Supervision or Setup 2=Maximal Assistance 6=Modified [place] 3=Moderate Assistance 7=Complete IndependenceSCALE: Activities may be completed with or without assistive devices. 9-Iipntqzpfx-gjcrzsm completes the activity by him/herself with no assistance from a helper. 5-Set-up or Clean-up Assistance-helper sets up or cleans up; patient completes activity. [place] assists only prior to or following the activity. 4-Supervision or Touching Assistance-helper provides verbal cues and/or touching/steadying and/or contact guard assistance as patient completes activity. Assistance may be provided throughout the activity or intermittently. 3-Partial/Moderate Assistance-helper does LESS THAN HALF the effort. [place] lifts, holds or supports trunk or limbs, but provides less than half the effort. 2-Substantial/Maximal Assistance-helper does MORE THAN HALF the effort. [place] lifts or holds trunk or limbs and provides more than half the effort. 3-Tnezeklhs-nykuqd does ALL the effort. Patient does none of the effort to complete the activity. Or, the assistance of 2 or more helpers is required for the patient to complete the activity. If activity was not attempted, code reason: 7-Patient Refused. 9-Not Applicable-not attempted and the patient did not perform the activity before the current illness, exacerbation or injury. 10-Not Attempted due to Environmental Limitations-(lack of equipment, weather restraints, etc.). 88-Not Attempted due to Medical Conditions or Safety Concerns. Roll Left to Right (QC): 4 Sit to Lying (QC): 4 Sit to Stand (QC): 4 Chair/Zyd-ex-Lzsdn Xfer(QC): 4 Car Transfer (QC): 4 Gait Training Does the Patient Walk?: Yes Walk 10 feet (QC): 4 Walk 50 ft with 2 Turns(QC): 88 Walk 150 ft (QC): 88 Walking 10ft/uneven surface-QC: 4 (CGA) Gait Assistive Device: FWW Wheelchair Training Wheel 50 ft with 2 turns (QC): 9 Wheel 150 ft (QC): 9 Stair Training #of Steps: 1 1 Step (curb) (QC): 4 (CGA) 4 Steps (QC): 10 12 Steps (QC): 10 Balance Picking up an Object (QC): 4 (CGA) ADL-Treatment Eating (QC): 6 Oral Hygiene (QC): 4 Shower/Bathe Self (QC): 4 Upper Body Dressing (QC): 4 Lower Body Dressing (QC): 4 On/Off Footwear (QC): 4 (slip on shoes only) Toileting Hygiene (QC): 4 Assessment/Plan Assessment and Plan Assess & Plan/Chief Complaint Assessment: Acute on chronic respiratory failure Flu A Interstitial lung disease Chronic O2 dependence 4L/min CHF DM Adrenal insufficiency Plan: Monitor closely O2 Home meds Monitor closely 03/21/2022: (1) Influenza Status: Acute (2) Interstitial lung disease Status: Chronic (3) Chronic respiratory failure Status: Chronic (4) General weakness Status: Acute (5) Adrenal insufficiency YOSELIN GUTIERREZ DO Mar 21, 2022 06:49
--- NOTE | 2022-03-21 06:49 | Individualized Plan of Care ---
Individualized Plan of Care Rehab Nursing IPOC Order Admission Date Mar 20, 2022 at 13:15 Current Orders Orders Admission Order(Inpt,Obs,Sdc) (03/20/22 12:19) Vital Signs: Per Unit Policy ( 08,16,00 (03/20/22 12:19) Yoshi Kilgore (03/20/22 12:19) Sequential Compression Device (03/20/22 12:19) Box Person-Inpt Rehab Con (03/20/22 12:19) Rehab Nursing Orders-Ipoc (03/20/22 12:19) Physical Therapy Rehab Orders (03/20/22 12:19) Occupational Therapy Rehab Ord (03/20/22 12:19) Speech Therapy Rehab Orders (03/20/22 12:19) Cbc With Automated Diff (03/21/22 06:00) Comprehensive Metabolic Panel (03/21/22 06:00) Precautions (Aru) (03/20/22 12:19) Rehab-Intensity Of Therapy (03/20/22 12:19) Alprazolam Tablet (Xanax Tablet) (03/20/22 12:30) Calcium Carbonate Chew Tablet (Antacid C (03/20/22 12:30) Diphenhydramine Tablet (Benadryl Tablet) (03/20/22 12:30) Docusate Sodium Capsule (Colace Capsule) (03/20/22 21:00) Docusate Sodium Capsule (Colace Capsule) (03/20/22 12:30) Bisacodyl Suppository (Dulcolax Supposit (03/20/22 12:30) Lactulose Oral Solution (Enulose Oral So (03/20/22 12:30) Na Phos/Na Biphos Enema (Fleet Enema João (03/20/22 12:30) Guaifenesin/Codeine Syrup (Robitussin Ac (03/20/22 12:30) Loperamide Tablet (Imodium Tablet) (03/20/22 12:30) Enoxaparin Injection (Lovenox Injection) (03/20/22 15:00) Melatonin Tablet (Melatonin Tablet) (03/20/22 12:30) Polyethylene Glycol Powder Pkt (Miralax (03/20/22 21:00) Ondansetron Oral Dissolve Tab (Zofran (03/20/22 12:30) Senna S Tablet (Senokot S Tablet) (03/20/22 21:00) Acetaminophen Tablet/Caplet (Tylenol T (03/20/22 12:30) Initiate Admission Nursing Pro .admission (03/20/22 12:19) Admission Arrival Bed Request (03/20/22 13:13) Transfer - Bed/Room/Location (03/20/22 13:46) Patient Visit (03/20/22 ) Pt Eval Moderate Complexity (03/20/22 ) Functional Activities, Ea 15 (03/20/22 ) General/Regular (03/20/22 Dinner) Acetaminophen Tablet (Tylenol Tablet) (03/20/22 20:00) Albuterol Pre-Mix Nebs (Rt) (Proventil (03/20/22 21:00) Albuterol Pre-Mix Nebs (Rt) (Proventil (03/20/22 20:00) Calcium Carbonate Tablet (Calcarb 600 Ta (03/20/22 21:00) Cyanocobalamin Injection (Vitamin B-12 I (03/20/22 20:00) Metoprolol Succinate (Xl) Tab (Toprol Xl (03/20/22 21:00) Ondansetron Oral Dissolve Tab (Zofran (03/20/22 20:00) Prednisone Tablet (Deltasone Tablet) (03/20/22 21:00) Pregabalin Capsule (Lyrica Capsule) (03/21/22 09:00) Pregabalin Capsule (Lyrica Capsule) (03/20/22 21:00) Sacubitril/Valsartan 24/26 Mg (Entresto (03/20/22 21:00) Umeclidinium [place] Inhaler (Incruse El (03/20/22 21:00) (Nf) Adalimumab (Humira) (03/20/22 20:00) (Nf) Biotin (03/21/22 09:00) Fluticasone/Salmeterol 232-14 (Airduo Re (03/20/22 21:00) Bumetanide Tablet (Bumex Tablet) (03/21/22 09:00) Cholecalciferol Capsule/Tablet (Vitamin (03/21/22 09:00) Estradiol Tablet (Estrace Tablet) (03/21/22 09:00) (Nf) Fexofenadine Hcl (Oma Allergy) (03/20/22 20:00) (Nf) Hydrocortisone/Pramoxine (Hydrocort (03/20/22 20:00) Lactobacillus Acidophilus Cap (Acidophil (03/21/22 09:00) (Nf) Nintedanib Esylate (Ofev) (03/20/22 21:00) (Nf) Omeprazole (03/20/22 21:00) Potassium Chloride (Tablet) (Klor Con Ta (03/20/22 21:00) Svn Small Volume Nebulizer (03/20/22 19:48) Loratadine Tablet (Claritin Tablet) (03/20/22 20:15) Pantoprazole Tablet (Protonix Tablet) (03/20/22 21:00) Albuterol Inhaler (Albuterol) (03/20/22 20:15) Manual Differential (03/21/22 06:35) Hydrocortisone/Pram 1% Cream (Proctocrea (03/21/22 08:00) Procalcitonin (Pct) (03/21/22 08:58) Lactic Acid Analyzer (03/21/22 08:58) Urinalysis (03/21/22 11:35) Straight Cath (Urinary) (03/21/22 08:58) Chest 1 View, Ap/Pa Only (03/21/22 08:58) Ns Iv 1000 Ml (Sodium Chloride 0.9%) (03/21/22 09:00) Cefepime Injection (Maxipime Injection) (03/21/22 09:00) Vancomycin Injection (Vancomycin Injecti (03/21/22 09:00) Blood Culture (03/21/22 08:58) Gamma Glutamyl Transferase Ggt (03/21/22 08:58) Covid 19 Inhouse Test (03/21/22 08:58) Cefepime Injection (Maxipime Injection) (03/21/22 09:00) Vancomycin Injection (Vancomycin Injecti (03/21/22 09:30) Vancomycin Injection (Vancomycin Injecti (03/22/22 10:00) Trough Order (Trough Order-Pharmacy Orde (03/23/22 09:00) Vancomycin,Trough (03/23/22 09:00) Attending Discharge Inpt/Inobs (03/21/22 12:17) Rehab Nursing Orders: Ongoing Assess. of Function Status Intensity of Therapy to be met Patient to be seen: Min.3h per day/5 of 7d PT IPOC Problem List: Activity Tolerance, Functional Strength, Safety, Balance, Gait, Transfer, Bed Mobility, ROM Bed Mobility, Education, Functional Activity June, Functional Strength, Gait, Safety, Therapeutic Exercise, Transfers Treatment Duration: Mar 27, 2022 Frequency: At least 5 of 7 days/Wk (IRF) Estimated Hrs Per Day: 1.5 hours per day OT IPOC Problems: Decreased Activ Tolerance, Impaired Funct Balance OT Treatment, Training and Edu: Yes Plan of Care: ADL Retraining, Functional Mobility, UE Funct Exercise/Act Treatment Duration: Mar 31, 2022 Frequency: At least 5 of 7 days/Wk (IRF) Estimated Hrs Per Day: 1.5 hours per day (75-90 min/day ) Box Person/Case Mgmt Box Person/Case Managemen: Discharge Planning Dietitian/Ripshear Operator Dietitian/Ripshear Operator to monitor nutritional status and make changes and/or recommendations as needed and work with speech pathology on dietary upgrades as the occur. Physician IPOC Medical Issues being managed closely and that require the 24 hour availability of a physician: Brief Synthesis of Preadmission Screen, Post-Admission Evaluation, and Therapy Evaluations: YOSELIN GUTIERREZ DO Mar 21, 2022 06:49
[2022-03-21 06:54] LABS: BASOPHILS % (AUTO) 0 % (0-10); EOSINOPHILS % (AUTO) 0 % (0-10); HEMATOCRIT 41 % (35-52); HEMOGLOBIN 13.6 g/dL (11.5-16.0); LYMPHOCYTES # (AUTO) 0.9 10^3/uL (1.0-4.0); LYMPHOCYTES % (AUTO) 7 % (12-44); MEAN CORPUSCULAR HEMOGLOBIN 34 pg (25-34); MEAN CORPUSCULAR HGB CONC 33 g/dL (32-36); MEAN CORPUSCULAR VOLUME 101 fL (80-99); MEAN PLATELET VOLUME 10.8 fL (9.0-12.2); MONOCYTES # (AUTO) 0.3 10^3/uL (0.0-1.0); MONOCYTES % (AUTO) 3 % (0-12); NEUTROPHILS # (AUTO) 11.3 10^3/uL (1.8-7.8); NEUTROPHILS % (AUTO) 90 % (42-75); PLATELET COUNT 217 10^3/uL (130-400); WHITE BLOOD COUNT 12.6 10^3/uL (4.3-11.0)
[2022-03-21 07:12] LABS: ALBUMIN 3.6 GM/DL (3.2-4.5); BILIRUBIN,TOTAL 0.8 MG/DL (0.1-1.0); CALCIUM 9.3 MG/DL (8.5-10.1); CREATININE SERUM 0.79 MG/DL (0.60-1.30); POTASSIUM 4.1 MMOL/L (3.6-5.0)
[2022-03-21] MEDS ORDERED: HYDROCORTISONE/PRAM 1% CREAM 30 GM TUBE RC PRN (08:00)
[2022-03-21 08:02] LABS: BAND NEUTROPHILS 2 %; LYMPHOCYTES % (MANUAL) 4 %; MONOCYTES % (MANUAL) 1 %; NEUTROPHILS % (MANUAL) 93 %
[2022-03-21 08:03] LABS: RBC MORPH NORMAL
[2022-03-21 08:45] VITALS: BP 135/61
[2022-03-21] MEDS: CALCIUM CARBONATE 600 MG (CALCARB) TAB PO SCH (08:55)
[2022-03-21] MEDS: polyethylene glycoL POWDER 17 GM (MIRALAX) PACK PO SCH (08:55)
[2022-03-21] MEDS: SACUBITRIL/VALSARTAN 24/26 MG (ENTRESTO) TABLET PO SCH (08:56)
[2022-03-21] MEDS: predniSONE 10 MG TAB PO SCH (08:56)
[2022-03-21] MEDS: meTOproloL SUCCINATE 50 MG (TOPROL XL) TAB PO SCH (08:56)
[2022-03-21] MEDS: SENNA W/DOCUSATE (SENOKOT S) TABLET PO SCH (08:56)
[2022-03-21] MEDS: DOCUSATE SODIUM 100 MG (COLACE) CAP PO SCH (08:56)
[2022-03-21] MEDS: KCL 10 MEQ TAB (MICRO K) PO SCH (08:57)
[2022-03-21] MEDS: PANTOPRAZOLE 40 MG (PROTONIX) TAB PO SCH (08:57)
[2022-03-21] MEDS ORDERED: BUMETANIDE 1 MG (BUMEX) TAB PO SCH (09:00)
[2022-03-21] MEDS ORDERED: CEFEPIME 1,000 MG/NS 50 ML IVPB IV SCH ×2 (09:00)
[2022-03-21] MEDS ORDERED: NS IV 1000 ML 1,000 ML IV SCH (09:00)
[2022-03-21] MEDS ORDERED: CEFEPIME INJECTION 2,000 MG in NS (IVPB) 50 ML IV SCH (09:00)
[2022-03-21] MEDS ORDERED: PREGABALIN 100 MG (LYRICA) CAPSULE PO SCH (09:00)
[2022-03-21] MEDS ORDERED: LACTOBACILLUS ACIDOPHILUS (PROBIOTIC) CAPSULE PO SCH (09:00)
[2022-03-21] MEDS ORDERED: VANCOMYCIN INJECTION 1,000 MG in NS (IVPB) 250 ML IV SCH (09:00)
[2022-03-21] MEDS ORDERED: VITAMIN D3 25 MCG (1,000 UNITS) TABLET PO SCH (09:00)
[2022-03-21] MEDS ORDERED: NON-FORMULARY MEDICATION 1 EA EA (Biotin 10,000 MCG) PO SCH (09:00)
[2022-03-21] MEDS ORDERED: ESTRADIOL 1 MG TAB (ESTRACE) PO SCH (09:00)
[2022-03-21] MEDS ORDERED: VANCOMYCIN 1500 MG/NS 500 ML IVPB IV NR ×2 (09:30)
--- NOTE | 2022-03-21 10:03 | Diagnostic Imaging Report ---
INDICATION: Fever EXAMINATION: Chest 03/21/2022 COMPARISON: 03/18/2022 FINDINGS: Single view chest There are infiltrates in the left lung base and throughout the right lung new since the recent examination. No effusions. No pneumothorax. Heart is stable. Pulmonary vasculature congested. IMPRESSION: 1. Diffuse new bilateral infiltrates as above. 2. Pulmonary vascular congestion with mild edema not excluded. Dictated by: Dictated on workstation # [id number]
[2022-03-21 11:41] LABS: BILIRUBIN,URINE NEGATIVE (NEGATIVE); CLARITY,URINE CLEAR; COLOR,URINE YELLOW; GLUCOSE, URINE (UA) NEGATIVE (NEGATIVE); KETONES,URINE NEGATIVE (NEGATIVE); LEUKOCYTE ESTERASE ,URINE NEGATIVE (NEGATIVE); NITRITE,URINE NEGATIVE (NEGATIVE); PH,URINE 5.5 (5-9); PROTEIN,URINE NEGATIVE (NEGATIVE)
--- NOTE | 2022-03-21 11:52 | Physical Therapy Progress Note ---
Therapy Progress Note Pt reports she doesn't feel up to therapy today and that she is just too tired. Says she thinks she will feel better and ready on Wednesday. Encouraged pt to perform some beds exs but says she too tired and too unwell. ERICA CAMARGO HUMANITIES INSTRUCTOR Mar 21, 2022 11:52
[2022-03-21 11:54] LABS: BACTERIA,URINE NEGATIVE /HPF
--- NOTE | 2022-03-21 12:19 | Discharge Summary ---
Diagnosis/Chief Complaint Date of Admission Mar 20, 2022 at 13:15 Date of Discharge Discharge Date: Mar 21, 2022 Discharge Diagnosis Acute respiratory failure on chronic [facility] COVID pneumonia Bacterial pneumonia Influenza Interstitial lung disease severe Immunosuppression Oxygen dependence Discharge Summary Discharge Physical Examination Allergies: Coded Allergies: metoclopramide (Verified Allergy, Mild, 08/08/12) erythromycin base (Verified Allergy, Unknown, 08/08/12) morphine (Verified Allergy, Unknown, pt has rec Lortab & Hydromorphone in the past, 03/20/22) Vitals & I&Os Vital Signs Date Time Temp Pulse Resp B/P (MAP) Pulse Ox O2 Delivery O2 Flow Rate FiO2 03/21/22 09:00 Nasal Cannula 4.00 03/21/22 08:45 40.2 64 18 135/61 (85) 90 General Appearance: Cooperative Respiratory: Clear to Auscultation Cardiovascular: Regular Rate Psych/Mental Status: Mental Status NL Hospital Course Was the Problem List Reviewed?: Yes CC: Debility 2/2 influenza A infection HPI: Kiley Seymour is a 76yo with h/o ILD who presented to the ED 03/18/22brought in by her son because of sever fatigue and weakness, she tested positive for influenza A and was admitted to [facility]. She is now being transfered to the ARU because her of 60 years is also a patient at the same hospital due to heart problems and she needs assistance in regaining functional strength. She was seen with her son and his . She has a secondary complaint of chronic back pain that feels worse with her weakened state. PMH: Endometriosis, Ovarian Cyst, Kidney Stones, Gastroesophageal Reflux, Alcazar's Esophagus, Intestinal adhesions, Obstructive Bowel, vertebral Fractures, blood transfusions (no adverse effects), PSH: Multiple intestinal adhesion removals, back surgery for broken spine All: artificial sweetener(migraines), Abatacept(anaphylaxis), silicone tape(rash), erythromycin (n/v/d), Hydrochlorothiazide (rash), Methotrexate (HTN), metoclopramide (anxiety), Morphine (syncope), tocilizumab (hives), tramadol (dizziness) Meds: Adalimumab (Humira), 20 MG SQ WED, (Reported) Albuterol Sulfate (Albuterol Sulfate), 2.5 MG INH HS, (Reported) Biotin (Biotin), 10,000 MCG PO DAILY, (Reported) Budesonide/Formoterol Fumarate (Symbicort 160-4.5 Mcg Inhaler), 2 PUFF INH BID, (Reported) Bumetanide (Bumetanide), 2 MG PO DAILY, (Reported) Calcium Carbonate (Calcium), 600 MG PO BID, (Reported) Cholecalciferol (Vitamin D3) (Vitamin D3), 50 MCG PO DAILY, (Reported) Cyanocobalamin (Cyanocobalamin Injection), 1,000 MCG IM MONTHLY, (Reported) Estradiol (Estradiol Tablet), 0.5 MG PO DAILY, (Reported) Lactobacillus Rhamnosus GG (Culturelle), 1 EACH PO DAILY, (Reported) Metoprolol Succinate (Metoprolol Succinate), 50 MG PO BID, (Reported) Nintedanib Esylate (Ofev), 100 MG PO BID, (Reported) Omeprazole (Omeprazole), 40 MG PO BID, (Reported) Potassium Chloride (Klor-Con M10), 10 MEQ PO BID, (Reported) Prednisone (Prednisone), 10 MG PO BID, (Reported) Pregabalin (Pregabalin), 100 MG PO DAILY, (Reported) Pregabalin (Pregabalin), 200 MG PO HS, (Reported) Sacubitril/Valsartan (Entresto 24 mg-26 mg Tablet), 1 TAB PO BID, (Reported) Umeclidinium [place] (Incruse Ellipta), 1 PUFF INH HS, (Reported) Scheduled PRN Acetaminophen (Acetaminophen), 1,000 MG PO Q6H PRN for PAIN-MILD (1-4), (Reported) Albuterol Sulfate (Albuterol Sulfate), 3 ML NEB Q6H PRN for SHORTNESS OF BREATH, (Reported) Albuterol Sulfate (Proventil Hfa), 2 PUFF Q6H PRN for SHORTNESS OF BREATH, (Reported) Fexofenadine HCl (Oma Allergy), 180 MG PO DAILY PRN for ALLERGY SYMPTOMS, (Reported) Hydrocortisone/Pramoxine (Hydrocort-Pramoxine 2.5-1% Crm), 1 APPLIC RC BID PRN for HEMMORRHOID DISCOMFORT, (Reported) Ondansetron (Ondansetron Odt), 4 MG PO Q6H PRN for SHORTNESS OF BREATH, (Reported) SH: for 60 years to (77), mother to 3 children, retired, Denies use of Alcohol, tobacco, recreational drugs, caffeine consumption from 3+ pepsis/day, poor glycemic control because of her diet FH: Cancer FATHER, Onset:60 years & older ("Tumor between heart and lungs") Chest pain SISTER, Onset:50's - 60 Congenital heart disease SISTER, Onset:Pre- (Infant sister that at .) Family history: Arthritis FATHER, Onset:50's - Family history: Asthma MOTHER, Onset:50's - 60 Family history: Cardiovascular disease FATHER, Onset:Unknown MOTHER, Onset:Unknown SISTER, Onset:60 years & older Family history: Diabetes mellitus FATHER, Onset: Family history: Hypertension FATHER, Onset:40's - 50 MOTHER, Onset:40's - 50 SISTER, Onset:30's - 40 Heart disease FATHER, Onset:40's - 50 MOTHER, Onset:40's - 50 SISTER, Onset:40's 50 History of - respiratory disease MOTHER, Onset:30' - Myocardial infarction SISTER, Onset:50's - 60 ROS: CV: chest pain/tightness irregularly comes and goes Resp: Chronically SOB, worse with exertion, use of accessory muscles noted on inspection Skin: no abnormal lesions/findings Constitutional: admits to n/d but denies vomiting, no chills, or abnormal weight loss Nuero/pshych: denies sensory/motor loss, alert and oriented x3 Exam: General: alert and oriented, happy, no acute distress, WD, fatigued, with poor nutrition CV: RRR, no murmers rubs, gallops, 2+ all distal pulses Respiratory: no signs of clubbing, or cyanotic coloring of lips or digits, use of accesory muscles/ labored breathing, SOB, crackles heard b/l of lower lobes during auscultation skin: clear of any abnormal findings, dry, warm MSK: muscle strength 4/5 on all extremities, limited ROM on LE b/l Labs: hyperglycemia this morning 03/20/22 A: debility chronic lower back pain poor glycemic control ILD P: Aggressive Therapy OT PT Pain medication management Insulin administration/ diet plan LETHA GUTIERREZ DO 03/21/22 0629: Supervisory-Addendum Brief Verification & Attestation Participated in pt care: history, MDM, physical Personally performed: exam, history, MDM, supervision of care Care discussed with: Medical Student Procedures: n/a Results interpretation: Verified all documentation Verification and Attestation of Medical Student E/M Service A medical student performed and documented this service in my presence. I reviewed and verified all information documented by the medical student and made modifications to such information, when appropriate. I personally performed the physical exam and medical decision making. Letha Gutierrez, Mar 21, 2022,06:29 CANDELARIAKAUSHIK Mar 20, 2022 15:09 LETHA GUTIERREZ DO Mar 21, 2022 06:29 Labs (last 24 hrs) Laboratory Tests 03/20/22 17:32: Glucometer 131H 03/21/22 06:35: White Blood Count 12.6H, Red Blood Count 4.03, Hemoglobin 13.6, Hematocrit 41, Mean Corpuscular Volume 101H, Mean Corpuscular Hemoglobin 34, Mean Corpuscular Hemoglobin Concent 33, Red Cell Distribution Width 14.3, Platelet Count 217, Mean Platelet Volume 10.8, Immature Granulocyte % (Auto) 1, Neutrophils (%) (Auto) 90H, Lymphocytes (%) (Auto) 7L, Monocytes (%) (Auto) 3, Eosinophils (%) (Auto) 0, Basophils (%) (Auto) 0, Neutrophils # (Auto) 11.3H, Lymphocytes # (Auto) 0.9L, Monocytes # (Auto) 0.3, Eosinophils # (Auto) 0.0, Basophils # (Auto) 0.0, Immature Granulocyte # (Auto) 0.1, Neutrophils % (Manual) 93, Lymphocytes % (Manual) 4, Monocytes % (Manual) 1, Band Neutrophils 2, Blood Morphology Comment NORMAL, Sodium Level 137, Potassium Level 4.1, Chloride Level 102, Carbon Dioxide Level 23, Anion Gap 12, Blood Urea Nitrogen 11, Creatinine 0.79, Estimat Glomerular Filtration Rate 77, BUN/Creatinine Ratio 14, Glucose Level 122H, Calcium Level 9.3, Corrected Calcium 9.6, Total Bilirubin 0.8, Gamma Glutamyl Transpeptidase 1878H, Aspartate Amino Transf (AST/SGOT) 115H, Alanine Aminotransferase (ALT/SGPT) 256H, Alkaline Phosphatase 105, Total Protein 7.0, Albumin 3.6, Procalcitonin 0.64H 03/21/22 10:15: SARS-CoV-2 RNA (RT-PCR) DetectedH 03/21/22 10:35: Lactic Acid Level 2.24*H 03/21/22 11:30: Urine Color YELLOW, Urine Clarity CLEAR, Urine pH 5.5, Urine Specific Tiff 1.015L, Urine Protein NEGATIVE, Urine Glucose (UA) NEGATIVE, Urine Ketones NEGATIVE, Urine Nitrite NEGATIVE, Urine Bilirubin NEGATIVE, Urine Urobilinogen 0.2, Urine Leukocyte Esterase NEGATIVE, Urine RBC (Auto) NEGATIVE, Urine RBC NONE, Urine WBC NONE, Urine Squamous Epithelial Cells NONE, Urine Renal Epithelial Cells NONE, Urine Crystals NONE, Urine Bacteria NEGATIVE, Urine Casts NONE, Urine Mucus NEGATIVE, Urine Culture Indicated NO 03/21/22 13:50: Lactic Acid Level 3.78*H 03/22/22 05:06: Glucometer 78 Pending Labs Laboratory Tests 03/20/22 17:32: Glucometer 131 03/21/22 06:35: White Blood Count 12.6, Red Blood Count 4.03, Hemoglobin 13.6, Hematocrit 41, Mean Corpuscular Volume 101, Mean Corpuscular Hemoglobin 34, Mean Corpuscular Hemoglobin Concent 33, Red Cell Distribution Width 14.3, Platelet Count 217, Mean Platelet Volume 10.8, Immature Granulocyte % (Auto) 1, Neutrophils (%) (Auto) 90, Lymphocytes (%) (Auto) 7, Monocytes (%) (Auto) 3, Eosinophils (%) (Auto) 0, Basophils (%) (Auto) 0, Neutrophils # (Auto) 11.3, Lymphocytes # (Auto) 0.9, Monocytes # (Auto) 0.3, Eosinophils # (Auto) 0.0, Basophils # (Auto) 0.0, Immature Granulocyte # (Auto) 0.1, Neutrophils % (Manual) 93, Lymphocytes % (Manual) 4, Monocytes % (Manual) 1, Band Neutrophils 2, Blood Morphology Comment NORMAL, Sodium Level 137, Potassium Level 4.1, Chloride Level 102, Carbon Dioxide Level 23, Anion Gap 12, Blood Urea Nitrogen 11, Creatinine 0.79, Estimat Glomerular Filtration Rate 77, BUN/Creatinine Ratio 14, Glucose Level 122, Calcium Level 9.3, Corrected Calcium 9.6, Total Bilirubin 0.8, Gamma Glutamyl Transpeptidase 1878, Aspartate Amino Transf (AST/SGOT) 115, Alanine Aminotransferase (ALT/SGPT) 256, Alkaline Phosphatase 105, Total Protein 7.0, Albumin 3.6, Procalcitonin 0.64 03/21/22 10:15: SARS-CoV-2 RNA (RT-PCR) Detected 03/21/22 10:35: Lactic Acid Level 2.24 03/21/22 11:30: Urine Color YELLOW, Urine Clarity CLEAR, Urine pH 5.5, Urine Specific Tiff 1.015, Urine Protein NEGATIVE, Urine Glucose (UA) NEGATIVE, Urine Ketones NEGATIVE, Urine Nitrite NEGATIVE, Urine Bilirubin NEGATIVE, Urine Urobilinogen 0.2, Urine Leukocyte Esterase NEGATIVE, Urine RBC (Auto) NEGATIVE, Urine RBC NONE, Urine WBC NONE, Urine Squamous Epithelial Cells NONE, Urine Renal Epithelial Cells NONE, Urine Crystals NONE, Urine Bacteria NEGATIVE, Urine Casts NONE, Urine Mucus NEGATIVE, Urine Culture Indicated NO 03/21/22 13:50: Lactic Acid Level 3.78 03/22/22 05:06: Glucometer 78 Discharge Home Medications: Active Scripts Active Reported Entresto 24 mg-26 mg Tablet (Sacubitril/Valsartan) 24 Mg-26 Mg Tablet 1 Tab PO BID Ofev (Nintedanib Esylate) 100 Mg Capsule 100 Mg PO BID Culturelle (Lactobacillus Rhamnosus GG) 10 Billion Cell Capsule 1 Each PO DAILY Oma Allergy (Fexofenadine HCl) 180 Mg Tablet 180 Mg PO DAILY PRN Vitamin D3 (Cholecalciferol (Vitamin D3)) 50 Mcg (2000 Unit) Capsule 50 Mcg PO DAILY Calcium (Calcium Carbonate) 600 Mg Calcium (1500 Mg) Tablet 600 Mg PO BID Biotin 10,000 Mcg Capsule 10,000 Mcg PO DAILY Humira (Adalimumab) 20 Mg/0.2 Ml Syringekit 20 Mg SQ WED Proventil Hfa (Albuterol Sulfate) 90 Mcg Hfa.aer.ad 2 Puff Q6H PRN Symbicort 160-4.5 Mcg Inhaler (Budesonide/Formoterol Fumarate) 160 Mcg-4.5 Mcg/ Actuation Hfa.aer.ad 2 Puff INH BID Ondansetron Odt (Ondansetron) 4 Mg Tab.rapdis 4 Mg PO Q6H PRN Albuterol Sulfate 2.5 Mg/0.5 Ml Vial.neb 2.5 Mg INH HS Albuterol Sulfate 2.5 Mg/3 Ml (0.083 %) Vial.neb 3 Ml NEB Q6H PRN Bumetanide 2 Mg Tablet 2 Mg PO DAILY Klor-Con M10 (Potassium Chloride) 10 Meq Tab.er.prt 10 Meq PO BID Estradiol Tablet (Estradiol) 0.5 Mg Tablet 0.5 Mg PO DAILY Prednisone 10 Mg Tab 10 Mg PO BID Incruse Ellipta (Umeclidinium [place]) 62.5 Mcg/Actuation Blst.w.dev 1 Puff INH HS Hydrocort-Pramoxine 2.5-1% Crm (Hydrocortisone/Pramoxine) 2.5 %-1 % Cream.appl 1 Applic RC BID PRN Pregabalin 100 Mg Capsule 200 Mg PO HS TAKES 2 (100MG) CAPS Pregabalin 100 Mg Capsule 100 Mg PO DAILY Acetaminophen 500 Mg Tablet 1,000 Mg PO Q6H PRN Cyanocobalamin Injection (Cyanocobalamin) 1,000 Mcg/Ml Inj 1,000 Mcg IM MONTHLY Omeprazole 40 Mg Capsule.dr 40 Mg PO BID Metoprolol Succinate 50 Mg Tab.er.24h 50 Mg PO BID Instructions to patient/family Please see electronic discharge instructions given to patient. Diagnosis/Problems Diagnosis/Problems (1) Influenza Status: Acute (2) Interstitial lung disease Status: Chronic (3) Chronic respiratory failure Status: Chronic (4) General weakness Status: Acute (5) Adrenal insufficiency LETHA GUTIERREZ DO Mar 21, 2022 12:19
[2022-03-22] MEDS ORDERED: VANCOMYCIN 1 GM/NS 250 ML IVPB IV SCH ×2 (10:00)
[2022-03-23] MEDS ORDERED: TROUGH ORDER-PHARMACY XX NR (09:00)
--- NOTE | 2022-03-23 09:58 | Therapy Team Discharge Summary ---
Therapy Discharge Summary Discharge Recommendations Date of Discharge Mar 21, 2022 at 19:42 Physical Therapy Patient came to rehab with Influenza A, debility. Upon evaluation patient performed rolling and supine <-> sit with SBA, sit <-> stand and transfers SBA, car transfer SBA, ambulated 40' with a rolling walker with SBA (but needed CGA for 10' over an uneven surface), went up and down 1 step using a rolling walker with CGA, and picked up an object from the floor with CGA. Patient had no further treatments and was transferred from the floor due to medical complica tions. Patient will be discharged from PT at this time. Roll Left to Right (QC): 4 Sit to Lying (QC): 4 Lying to Sitting/Side of Bed(Q: 4 Sit to Stand (QC): 4 Chair/Fkn-xv-Aonrj Xfer(QC): 4 Toilet Transfer (QC): 4 Car Transfer (QC): 4 Does the Patient Walk: Yes Mode of Locomotion: Walk Anticipated Mode of Locomotion: Walk Walk 10 feet (QC): 4 Walk 50 ft with 2 Turns(QC): 88 Walk 150 ft (QC): 88 Walking 10ft on uneven surface: 4 (CGA) Distance: 40' Gait Assistive Device: FWW Wheel 50 ft with 2 turns (QC): 9 Wheel 150 ft (QC): 9 #of Steps: 1 1 Step (curb) (QC): 4 (CGA) 4 Steps (QC): 10 12 Steps (QC): 10 Walking Assistive Device: Walker Balance Sitting Static: Normal Balance Sitting Dynamic: Normal Balance-Standing Static: Normal Picking up an Object (QC): 4 (CGA) Occupational Therapy Decreased Activ Tolerance, Impaired Funct Balance Eating (QC): 6 Oral Hygiene (QC): 4 Shower/Bathe Self (QC): 4 Upper Body Dressing (QC): 4 Lower Body Dressing (QC): 4 On/Off Footwear (QC): 4 (slip on shoes only) Toileting Hygiene (QC): 4 PT Retirement Goals Retirement Goals PT Retirement Goals Time Frame: Apr 10, 2022 Roll Left to Right (QC): 6 Sit to Lying (QC): 6 Lying-Sitting on Side/Bed(QC): 6 Sit to Stand (QC): 6 Chair/Mzb-rz-Cxoqy Xfer(QC): 6 Toilet/Commode Transfer (QC): 6 Car Transfer (QC): 6 Does the Patient Walk: Yes Walk 10 feet (QC): 6 Walk 10ft-Uneven Surface(QC): 6 Walk 50ft with 2 Turns (QC): 6 Walk 150 ft (QC): 6 Wheel 50 feet with 2 turns (QC: 9 Wheel 150 feet: 9 1 Step (curb) (QC): 6 4 Steps (QC): 6 12 Steps (QC): 88 Picking up an Object (QC): 6 OT Retirement Goals Retirement Goals Time Frame: Mar 31, 2022 Acute change in mental status: 0 Inattention: 0 Disorganized thinkin Altered level of consciousness: 0 Eating (QC): 6 Oral Hygiene (QC): 6 Toileting Hygiene (QC): 6 Shower/Bathe Self (QC): 5 Upper Body Dressing (QC): 6 Lower Body Dressing (QC): 6 On/Off Footwear (QC): 6 Additional Goals: 1-Demonstrate ADL Tasks, 2-Verbalize Understanding, 3- ImproveStrength/June 1=Demonstrate adherence to instructed precautions during ADL tasks. 2=Patient will verbalize/demonstrate understanding of assistive devices/modifications for ADL. 3=Patient will improve strength/tolerance for activity to enable patient to perform ADL's. TAYLA GONZALEZ PT Mar 23, 2022 09:58
--- NOTE | 2022-03-23 12:03 | Therapy Team Discharge Summary ---
Therapy Discharge Summary Discharge Recommendations Date of Discharge Mar 21, 2022 at 19:42 Physical Therapy Roll Left to Right (QC): 4 Sit to Lying (QC): 4 Lying to Sitting/Side of Bed(Q: 4 Sit to Stand (QC): 4 Chair/Yea-wd-Rzocb Xfer(QC): 4 Toilet Transfer (QC): 4 Car Transfer (QC): 4 Does the Patient Walk: Yes Mode of Locomotion: Walk Anticipated Mode of Locomotion: Walk Walk 10 feet (QC): 4 Walk 50 ft with 2 Turns(QC): 88 Walk 150 ft (QC): 88 Walking 10ft on uneven surface: 4 (CGA) Distance: 40' Gait Assistive Device: FWW Wheel 50 ft with 2 turns (QC): 9 Wheel 150 ft (QC): 9 #of Steps: 1 1 Step (curb) (QC): 4 (CGA) 4 Steps (QC): 10 12 Steps (QC): 10 Walking Assistive Device: Walker Balance Sitting Static: Normal Balance Sitting Dynamic: Normal Balance-Standing Static: Normal Picking up an Object (QC): 4 (CGA) Occupational Therapy Pt admitted to ARU with debility following Influenza A. At time of evaluation she was SBA for all adls except eating which she was independent for. No progress toward goals were made as pt discharged to ICU for respiratory failure after 1 day on rehab. Pt will be discharged from OT at this time. Decreased Activ Tolerance, Impaired Funct Balance Eating (QC): 6 Oral Hygiene (QC): 4 Shower/Bathe Self (QC): 4 Upper Body Dressing (QC): 4 Lower Body Dressing (QC): 4 On/Off Footwear (QC): 4 (slip on shoes only) Toileting Hygiene (QC): 4 PT Division Director Goals Usp Goals PT Usp Goals Time Frame: Apr 10, 2022 Roll Left to Right (QC): 6 Sit to Lying (QC): 6 Lying-Sitting on Side/Bed(QC): 6 Sit to Stand (QC): 6 Chair/Aro-si-Gruam Xfer(QC): 6 Toilet/Commode Transfer (QC): 6 Car Transfer (QC): 6 Does the Patient Walk: Yes Walk 10 feet (QC): 6 Walk 10ft-Uneven Surface(QC): 6 Walk 50ft with 2 Turns (QC): 6 Walk 150 ft (QC): 6 Wheel 50 feet with 2 turns (QC: 9 Wheel 150 feet: 9 1 Step (curb) (QC): 6 4 Steps (QC): 6 12 Steps (QC): 88 Picking up an Object (QC): 6 OT Division Director Goals Division Director Goals Time Frame: Mar 31, 2022 Acute change in mental status: 0 Inattention: 0 Disorganized thinkin Altered level of consciousness: 0 Eating (QC): 6 Oral Hygiene (QC): 6 Toileting Hygiene (QC): 6 Shower/Bathe Self (QC): 5 Upper Body Dressing (QC): 6 Lower Body Dressing (QC): 6 On/Off Footwear (QC): 6 Additional Goals: 1-Demonstrate ADL Tasks, 2-Verbalize Understanding, 3- ImproveStrength/June 1=Demonstrate adherence to instructed precautions during ADL tasks. 2=Patient will verbalize/demonstrate understanding of assistive devices/modifications for ADL. 3=Patient will improve strength/tolerance for activity to enable patient to perform ADL's. Mari Lopez OT Mar 23, 2022 12:03
== END 2022-03-21 19:42 | disposition short-term general hospital (02) | DRG 947 ==
PROVIDERS: ADMIT Internal Medicine; ATTEND Internal Medicine
DX: R53.81 Other malaise (principal); J12.82 Pneumonia due to coronavirus disease 2019; U07.1 COVID-19; J15.9 Unspecified bacterial pneumonia; J96.20 Acute and chronic respiratory failure, unspecified whether with hypoxia or hypercapnia; J84.9 Interstitial pulmonary disease, unspecified; E27.40 Unspecified adrenocortical insufficiency; I42.9 Cardiomyopathy, unspecified; J10.1 Influenza due to other identified influenza virus with other respiratory manifestations; J43.9 Emphysema, unspecified; K21.9 Gastro-esophageal reflux disease without esophagitis; E78.00 Pure hypercholesterolemia, unspecified; I11.0 Hypertensive heart disease with heart failure; I50.9 Heart failure, unspecified; Z99.81 Dependence on supplemental oxygen; Z82.49 Family history of ischemic heart disease and other diseases of the circulatory system
CPT/HCPCS: 36415; 71045; 80053; 81000; 82947; 82977; 83605; 84145; 85007; 85027; 87040; 87636; 94640; 94760

== ENCOUNTER 2022-03-21 12:30 | Inpatient (IN) | payer MEDICARE, OTHER ==
[~2022-03-21] VITALS: Ht 155 cm; Wt 78.4 kg
[2022-03-21] MEDS ORDERED: diphenhydrAMINE 50 MG/ML INJ (BENADRYL) IVP PRN (12:45)
[2022-03-21] MEDS ORDERED: ACETAMINOPHEN 325 MG TABLET PO PRN (12:45)
[2022-03-21] MEDS ORDERED: polyethylene glycoL POWDER 17 GM (MIRALAX) PACK PO PRN (12:45)
[2022-03-21] MEDS ORDERED: BISACODYL 10 MG SUPP (DULCOLAX) PR PRN ×2 (12:45→20:00)
[2022-03-21] MEDS ORDERED: ONDANSETRON 4 MG/2 ML (SDV) Z0FRAN IV PRN (12:45)
[2022-03-21] MEDS ORDERED: CALCIUM CARBONATE 500 MG (TUMS) TAB.CHEW PO PRN (12:45)
[2022-03-21] MEDS ORDERED: ONDANSETRON 4 MG (ZOFRAN) ORAL DISSOLVE TAB PO PRN ×3 (12:45→20:00)
[2022-03-21] MEDS ORDERED: LACTULOSE SYRUP 10GM/15ML (ENULOSE) 30ML UDC PO PRN (12:45)
[2022-03-21] MEDS ORDERED: NALOXONE 0.4 MG/ML 1 ML (NARCAN) VIAL IV PRN (12:45)
[2022-03-21] MEDS ORDERED: HYDROmorphone 2 MG/ML VIAL (DILAUDID) IV PRN (12:45)
[2022-03-21] MEDS ORDERED: MELATONIN 3 MG TABLET PO PRN (12:45)
[2022-03-21] MEDS ORDERED: ANTACID SUSP 30 ML UDC (MYLANTA) PO PRN (12:45)
[2022-03-21] MEDS ORDERED: MILK OF MAGNESIA 400 MG/5 ML 30 ML UDC PO PRN (12:45)
[2022-03-21] MEDS ORDERED: diphenhydrAMINE 25 MG TAB (BENADRYL) PO PRN (12:45)
[2022-03-21 12:50] VITALS: BP 95/63
[2022-03-21 13:50] LABS: ABG BASE EXCESS 1.4 MMOL/L (-2.5-2.5); ABG OXYGEN SATURATION 86 % (94-100); ABG PCO2 32 MMHG (35-45); ABG PH 7.49 (7.37-7.43); ABG PO2 46 MMHG (79-93); ABG TCO2 25.5 MMOL/L (21.0-31.0)
[2022-03-21 13:51] LABS: ALLENS TEST POSITIVE; INSPIRED O2 4 L; PATIENT TEMP 37; VENTILATOR NO
[2022-03-21] MEDS ORDERED: ENOXAPARIN 40 MG/0.4 ML (LOVENOX) SYR SC SCH (15:00)
[2022-03-21 16:11] VITALS: BP 100/54
[2022-03-21] MEDS: inSUlin ASPART (NovoLOG) 1 UNIT/0.01 ML (CHARGE PER UNIT) SC SCH ×2 (16:17→20:46)
[2022-03-21 19:08] VITALS: BP 92/55
[2022-03-21] MEDS ORDERED: CEFEPIME INJECTION 2,000 MG in NS (IVPB) 50 ML IV SCH (19:30)
[2022-03-21] MEDS ORDERED: VANCOMYCIN INJECTION 0.1 MG in NS (IVPB) 250 ML IV SCH (19:30)
[2022-03-21] MEDS ORDERED: CYANOCOBALAMIN INJ 1000 MCG/ML IM SCH (19:45)
[2022-03-21] MEDS ORDERED: RT-ALBUTEROL SULF 2.5 MG/3 ML PRE-MIX VIAL IH PRN (19:45)
[2022-03-21] MEDS: DOCUSATE SODIUM 100 MG (COLACE) CAP PO SCH (19:50)
[2022-03-21] MEDS: SENNOSIDES 8.6 MG (SENOKOT) TAB PO SCH (19:50)
--- NOTE | 2022-03-21 19:59 | History & Physical ---
History of Present Illness HPI/Chief Complaint Chief complaint: Acute on chronic respiratory failure from COVID-pneumonia HPI: This is a 76-year-old female of Dr. Snyder's who I just admitted to inpatient rehab yesterday following influenza induced debility but started running a 104 fever prompting septic work-up which revealed COVID swab positive with bacterial pneumonia on chest x-ray and sepsis with elevated lactic acid. She has a history of interstitial lung disease and is on multiple immunosuppressive medications. She was tested for COVID 2 days ago it was negative. Her is admitted to fourth floor of she visited all day yesterday. Patient appears to be very high risk for decompensation due to immunosuppressive state but after discussing living will with her and she intends to remain a full code and intubation if necessary which I feel is highly unlikely to be successful but she reports " I will beat this" so we will move to fourth floor and continue cefepime and vancomycin Decadron and oxygen supplementation per COVID protocol. ARU H&P: CC: Debility 2/2 influenza A infection HPI: Kiley Seymour is a 76yo with h/o ILD who presented to the ED 03/18/22brought in by her son because of sever fatigue and weakness, she tested positive for influenza A and was admitted to [facility]. She is now being transfered to the ARU because her of 60 years is also a patient at the same hospital due to heart problems and she needs assistance in regaining functional strength. She was seen with her son and his . She has a secondary complaint of chronic back pain that feels worse with her weakened state. PMH: Endometriosis, Ovarian Cyst, Kidney Stones, Gastroesophageal Reflux, Alcazar's Esophagus, Intestinal adhesions, Obstructive Bowel, vertebral Fractures, blood transfusions (no adverse effects), PSH: Multiple intestinal adhesion removals, back surgery for broken spine All: artificial sweetener(migraines), Abatacept(anaphylaxis), silicone tape(rash), erythromycin (n/v/d), Hydrochlorothiazide (rash), Methotrexate (HTN), metoclopramide (anxiety), Morphine (syncope), tocilizumab (hives), tr amadol (dizziness) Meds: Adalimumab (Humira), 20 MG SQ WED, (Reported) Albuterol Sulfate (Albuterol Sulfate), 2.5 MG INH HS, (Reported) Biotin (Biotin), 10,000 MCG PO DAILY, (Reported) Budesonide/Formoterol Fumarate (Symbicort 160-4.5 Mcg Inhaler), 2 PUFF INH BID, (Reported) Bumetanide (Bumetanide), 2 MG PO DAILY, (Reported) Calcium Carbonate (Calcium), 600 MG PO BID, (Reported) Cholecalciferol (Vitamin D3) (Vitamin D3), 50 MCG PO DAILY, (Reported) Cyanocobalamin (Cyanocobalamin Injection), 1,000 MCG IM MONTHLY, (Reported) Estradiol (Estradiol Tablet), 0.5 MG PO DAILY, (Reported) Lactobacillus Rhamnosus GG (Culturelle), 1 EACH PO DAILY, (Reported) Metoprolol Succinate (Metoprolol Succinate), 50 MG PO BID, (Reported) Nintedanib Esylate (Ofev), 100 MG PO BID, (Reported) Omeprazole (Omeprazole), 40 MG PO BID, (Reported) Potassium Chloride (Klor-Con M10), 10 MEQ PO BID, (Reported) Prednisone (Prednisone), 10 MG PO BID, (Reported) Pregabalin (Pregabalin), 100 MG PO DAILY, (Reported) Pregabalin (Pregabalin), 200 MG PO HS, (Reported) Sacubitril/Valsartan (Entresto 24 mg-26 mg Tablet), 1 TAB PO BID, (Reported) Umeclidinium [place] (Incruse Ellipta), 1 PUFF INH HS, (Reported) Scheduled PRN Acetaminophen (Acetaminophen), 1,000 MG PO Q6H PRN for PAIN-MILD (1-4), (Repo rted) Albuterol Sulfate (Albuterol Sulfate), 3 ML NEB Q6H PRN for SHORTNESS OF BREATH, (Reported) Albuterol Sulfate (Proventil Hfa), 2 PUFF Q6H PRN for SHORTNESS OF BREATH, (Reported) Fexofenadine HCl (Oma Allergy), 180 MG PO DAILY PRN for ALLERGY SYMPTOMS, (Reported) Hydrocortisone/Pramoxine (Hydrocort-Pramoxine 2.5-1% Crm), 1 APPLIC RC BID PRN for HEMMORRHOID DISCOMFORT, (Reported) Ondansetron (Ondansetron Odt), 4 MG PO Q6H PRN for SHORTNESS OF BREATH, (Reported) SH: for 60 years to (77), mother to 3 children, retired, Denies use of Alcohol, tobacco, recreational drugs, caffeine consumption from 3+ pepsis/day, poor glycemic control because of her diet FH: Cancer FATHER, Onset:60 years & older ("Tumor between heart and lungs") Chest pain SISTER, Onset:50's - 60 Congenital heart disease SISTER, Onset:Pre- (Infant sister that at .) Family history: Arthritis FATHER, Onset:s - Family history: Asthma MOTHER, Onset:50 Family history: Cardiovascular disease FATHER, Onset:Unknown MOTHER, Onset:Unknown SISTER, Onset:60 years & older Family history: Diabetes mellitus FATHER, Onset: Family history: Hypertension FATHER, Onset:40's - 50 MOTHER, Onset:40's - 50 SISTER, Onset:30's - Heart disease FATHER, Onset:40's 50 MOTHER, Onset:40' - 50 SISTER, Onset: History of - respiratory disease MOTHER, Onset: Myocardial infarction SISTER, Onset: ROS: CV: chest pain/tightness irregularly comes and goes Resp: Chronically SOB, worse with exertion, use of accessory muscles noted on inspection Skin: no abnormal lesions/findings Constitutional: admits to n/d but denies vomiting, no chills, or abnormal weight loss Nuero/pshych: denies sensory/motor loss, alert and oriented x3 Exam: General: alert and oriented, happy, no acute distress, WD, fatigued, with poor nutrition CV: RRR, no murmers rubs, gallops, 2+ all distal pulses Respiratory: no signs of clubbing, or cyanotic coloring of lips or digits, use of accesory muscles/ labored breathing, SOB, crackles heard b/l of lower lobes during auscultation skin: clear of any abnormal findings, dry, warm MSK: muscle strength 4/5 on all extremities, limited ROM on LE b/l Labs: hyperglycemia this morning 03/20/22 A: debility chronic lower back pain poor glycemic control ILD P: Aggressive Therapy OT PT Pain medication management Insulin administration/ diet plan LETHA GUTIERREZ DO 03/21/22 0955: Supervisory-Addendum Brief Verification & Attestation Participated in pt care: history, MDM, physical Personally performed: exam, history, MDM, supervision of care Care discussed with: Medical Student Procedures: n/a Results interpretation: Verified all documentation Verification and Attestation of Medical Student E/M Service A medical student performed and documented this service in my presence. I reviewed and verified all information documented by the medical student and made modifications to such information, when appropriate. I personally performed the physical exam and medical decision making. Letha Gutierrez Mar 21, 2022,06:29 CANDELARIAKAUSHIK Mar 20, 2022 15:09 Source: patient, RN/MD, old records Exam Limitations: clinical condition Date Seen 03/21/22 Time Seen by a Provider: 13:00 Attending Physician Mushtaq Snyder MD PCP Admitting Physician: Letha Gutierrez DO Attending Physician: Letha Gutierrez DO Referring Physician Date of Admission Mar 21, 2022 at 12:30 Home Medications & Allergies Home Medications Reviewed patient Home Medication Reconciliation performed by pharmacy medication reconciliations office automation technician and/or nursing. Patients Allergies have been reviewed. Allergies Allergies Coded Allergies metoclopramide (Verified Allergy, Mild, 08/08/12) erythromycin base (Verified Allergy, Unknown, 08/08/12) morphine (Verified Allergy, Unknown, pt has rec Lortab & Hydromorphone in the past, 03/20/22) Past [id number]-Ocngab-Jdursy Hx Past Med/Social Hx: Reviewed Nursing Past Med/Soc Hx, Reviewed and Corrections made Patient Social History Marrital Status: Employed/Student: retired Alcohol Use: Denies Use Smoking Status: Former Smoker Immunizations Up To Date Date of Pneumonia Vaccine: Jan 17, 2005 Date of Influenza Vaccine: Jan 17, 2022 Seasonal Allergies Seasonal Allergies: No Past Medical History Respiratory: COPD, Emphysema, Pneumonia Currently Using CPAP: No Currently Using BIPAP: No Cardiac: Cardiomyopathy, High Cholesterol, Hypertension Reproductive: Yes Sexually Transmitted Disease: No HIV/AIDS: No Female Reproductive Disorders: Endometriosis, Ovarian Cyst Genitourinary: Kidney Stones Gastrointestinal: Gastroesophageal Reflux, Alcazar's Esophagus, Obstructive Bowel Musculoskeletal: Fractures Adverse Reaction to Blood Tompkins: No Family History Cancer 03 FATHER, Onset:60 years & older ("Tumor between heart and lungs") Chest pain 09 SISTER, Onset:50's - 60 Congenital heart disease 09 SISTER, Onset:Pre- ( sister that at .) Family history: Arthritis 03 FATHER, Onset:50's - 60 Family history: Asthma 03 MOTHER, Onset:50's - 60 Family history: Cardiovascular disease 03 FATHER, Onset:Unknown 03 MOTHER, Onset:Unknown 09 SISTER, Onset:60 years & older Family history: Diabetes mellitus 03 FATHER, Onset:50's - 60 Family history: Hypertension 03 FATHER, Onset:40's - 50 03 MOTHER, Onset:40's - 50 09 SISTER, Onset:30's - 40 Heart disease 03 FATHER, Onset:40's - 50 03 MOTHER, Onset:40's - 50 09 SISTER, Onset:40's 50 History of - respiratory disease 03 MOTHER, Onset:30's - 40 Myocardial infarction 09 SISTER, Onset:50's - 60 No Family History of: Abdominal aortic aneurysm Ilya's disease Alcoholism Aphasia Cancer of colon Cataract Congestive heart failure Cystic fibrosis Dementia Dysphagia Family history: Allergy Family history: Alzheimer's disease Family history: Breast disease Family history: Coronary thrombosis Family history: Gastrointestinal disease Family history: Glaucoma Family history: Osteoporosis Family history: Thyroid disorder Headache Hearing loss Hereditary disease History of - anemia History of - disorder History of drug abuse Human immunodeficiency virus (HIV) seropositivity Hypercholesterolemia Infertile Kidney disease Malignant neoplasm of lung Parkinson's disease Prostate cancer Psychotic disorder Seizure disorder Stroke Tuberculosis Visual impairment Heart Disease, CAD Over 55 Years Old Review of Systems Constitutional: see HPI, dizziness, fever, malaise, weakness EENTM: no symptoms reported Respiratory: cough, dyspnea on exertion, short of breath, wheezing Cardiovascular: no symptoms reported Gastrointestinal: no symptoms reported Genitourinary: no symptoms reported Musculoskeletal: no symptoms reported Skin: no symptoms reported Psychiatric/Neurological: No Symptoms Reported All Other Systems Reviewed Negative Unless Noted: Yes Physical Exam Physical Exam Vital Signs Vital Signs - First Documented 03/21/22 03/22/22 12:50 01:15 Temp 37.1 Pulse 97 Resp 16 B/P (MAP) 95/63 (74) Pulse Ox 94 O2 Delivery Nasal Cannula O2 Flow Rate 4.00 FiO2 100 Capillary Refill : Height, Weight, BMI Height: 5'1.50" Weight: 140lbs. 0.0oz. [id number]; 29.88 BMI Method:Stated General Appearance: WD/WN, Anxious, Chronically ill, Mild Distress Eyes: Bilateral Eye Normal Inspection, Bilateral Eye PERRL HEENT: PERRL/EOMI, Normal ENT Inspection, Pharynx Normal Neck: Full Range of Motion, Normal Inspection, Non Tender, Supple, Carotid Bruit Respiratory: Chest Non Tender, No Respiratory Distress, Accessory Muscle Use, Decreased Breath Sounds, Wheezing Cardiovascular: Regular Rate, Rhythm, No Edema, No Gallop, No JVD, No Murmur, Normal Peripheral Pulses Gastrointestinal: Normal Bowel Sounds, No Organomegaly, No Pulsatile Mass, Non Tender, Soft Back: Normal Inspection, No CVA Tenderness, No Vertebral Tenderness Extremity: Normal Capillary Refill, Normal Inspection, Normal Range of Motion, Non Tender, No Calf Tenderness, No Pedal Edema Neurologic/Psychiatric: Alert, Oriented x3, law clerk II-XII Norm as Tested, Depressed Affect, Motor Weakness Skin: Normal Color, Warm/Dry Lymphatic: No Adenopathy Results Results/Procedures Labs Patient resulted labs reviewed. Assessment/Plan Admission Diagnosis Assessment: Acute on chronic respiratory failure Bacterial pneumonia COVID infection Flu A Interstitial lung disease Immunosuppressed Chronic O2 dependence 4L/min CHF/cardiomyopathy DM Adrenal insufficiency Plan: COVID protocol IV antibiotics Decadron Hold home medication immunosuppressive's Poor prognosis Admission Status: Inpatient Order (span 2 midnights) Reason for Inpatient Admission: Respiratory failure from COVID Diagnosis/Problems Diagnosis/Problems (1) COVID-19 (2) Influenza Status: Acute (3) Interstitial lung disease Status: Chronic (4) General weakness Status: Acute (5) Adrenal insufficiency (6) Chronic respiratory failure Status: Chronic LETHA GUTIERREZ DO Mar 21, 2022 19:59
[2022-03-21] MEDS ORDERED: ACETAMINOPHEN 500 MG TAB (TYLENOL) PO PRN (20:00)
[2022-03-21] MEDS ORDERED: ALPRAZolam 0.25 MG (XANAX) TAB PO PRN (20:00)
[2022-03-21] MEDS ORDERED: guaiFENesin/CODEINE (ROBITUSSIN AC) 10ML UDC PO PRN (20:00)
[2022-03-21] MEDS ORDERED: LOPERAMIDE 2 MG (IMODIUM) TABLET PO PRN (20:00)
[2022-03-21] MEDS ORDERED: UMECLIDINIUM BROMIDE (INCRUSE ELLIPTA) 7'S IH SCH ×2 (21:00)
[2022-03-21] MEDS ORDERED: NON-FORMULARY MEDICATION 1 EA EA (Budesonide/Formoterol Fumarate (Symbicort 160-4.5 Mcg In INH SCH (21:00)
[2022-03-21] MEDS ORDERED: VANCOMYCIN 750 MG/NS 250 ML IVPB IV SCH ×2 (22:00)
[2022-03-21] MEDS: RT-ALBUTEROL HFA 8.5 GM INHALER IH SCH (22:48)
[2022-03-21] MEDS: UMECLIDINIUM BROMIDE (INCRUSE ELLIPTA) 7'S IH SCH (22:48)
[2022-03-21] MEDS: CALCIUM CARBONATE 600 MG (CALCARB) TAB PO SCH (23:29)
[2022-03-21] MEDS: PANTOPRAZOLE 40 MG (PROTONIX) TAB PO SCH (23:29)
[2022-03-21] MEDS: guaiFENesin (MUCINEX) 600 MG TAB PO SCH (23:29)
[2022-03-21] MEDS: PREGABALIN 100 MG (LYRICA) CAPSULE PO SCH (23:29)
[2022-03-21] MEDS: CEFEPIME 1,000 MG/NS 50 ML IVPB IV SCH ×2 (23:29)
[2022-03-21] MEDS: meTOproloL SUCCINATE 50 MG (TOPROL XL) TAB PO SCH (23:29)
[2022-03-21] MEDS: SACUBITRIL/VALSARTAN 24/26 MG (ENTRESTO) TABLET PO SCH (23:29)
[2022-03-21] MEDS ORDERED: LORATADINE (CLARITIN) 10 MG TAB PO PRN (23:30)
[2022-03-21] MEDS ORDERED: HYDROCORTISONE/PRAM 1% CREAM 30 GM TUBE TOP PRN (23:30)
[2022-03-21] MEDS: NS IV 1000 ML 1,000 ML IV SCH (23:31)
[2022-03-22] VITALS (8 sets, daily range): BP systolic 87–125; BP diastolic 57–72
[2022-03-22] MEDS: inSUlin ASPART (NovoLOG) 1 UNIT/0.01 ML (CHARGE PER UNIT) SC SCH ×4 (05:11→20:18)
[2022-03-22 05:26] LABS: ABG BASE EXCESS 1.3 MMOL/L (-2.5-2.5); ABG OXYGEN SATURATION 98 % (94-100); ABG PCO2 34 MMHG (35-45); ABG PH 7.47 (7.37-7.43); ABG PO2 79 MMHG (79-93); ABG TCO2 25.7 MMOL/L (21.0-31.0)
[2022-03-22 05:33] LABS: ALLENS TEST YES-POS; PATIENT TEMP 36.9; VENTILATOR NO
--- NOTE | 2022-03-22 06:03 | Progress Note ---
Subjective Date Seen by a Provider: Mar 22, 2022 Time Seen by a Provider: 11:30 Subjective/Events-last exam Moving to ICU from [facility] since there was not a bed in ICU last night when I moved her from 4th floor Checked meds and labs Patient appears to be very fatigued I would recommend no intubation but it appears she is willing to be intubated and biPAP, appears to be in denial Very poor prognosis COVID and Flu A with ILD Review of Systems General: Fatigue, Malaise Pulmonary: Dyspnea, Cough Objective Exam Last Set of Vital Signs Vital Signs Date Time Temp Pulse Resp B/P (MAP) Pulse Ox O2 Delivery O2 Flow Rate FiO2 03/22/22 01:22 37.1 95 17 111/57 (75) 98 Vapotherm 30.00 100.00 03/22/22 01:15 100 Capillary Refill : I&O Intake and Output 03/22/22 00:00 Intake Total 530 ml Balance 530 ml Intake Oral 530 ml # Voids 3 # Bowel Movements 1 Daily Weight Change No General: Alert, Oriented X3, Cooperative, No Acute Distress Lungs: Other (Wheezing and rales) Heart: Regular Rate, Normal S1, Normal S2, No Murmurs Psych/Mental Status: Mental Status NL, Mood NL Results Lab Laboratory Tests 03/21/22 13:42: Blood Gas Puncture Site RIGHT RADIAL, Blood Gas Patient Temperature 37, Arterial Blood pH 7.49H, Arterial Blood Partial Pressure CO2 32L, Arterial Blood Partial Pressure O2 46L, Arterial Blood HCO3 25, Arterial Blood Total CO2 25.5, Arterial Blood Oxygen Saturation 86L, Arterial Blood Base Excess 1.4, Beto Test POSITIVE, Blood Gas Ventilator Setting NO, Blood Gas Inspired Oxygen 4 L 03/21/22 16:34: Glucometer 187H 03/21/22 20:18: Glucometer 142H 03/22/22 05:15: Blood Gas Puncture Site RIGHT RADIAL, Blood Gas Patient Temperature 36.9, Arterial Blood pH 7.47H, Arterial Blood Partial Pressure CO2 34L, Arterial Blood Partial Pressure O2 79, Arterial Blood HCO3 25, Arterial Blood Total CO2 25.7, Arterial Blood Oxygen Saturation 98, Arterial Blood Base Excess 1.3, Beto Test YES-POS, Blood Gas Ventilator Setting NO, Blood Gas Inspired Oxygen NA Assessment/Plan Assessment/Plan Assess & Plan/Chief Complaint Assessment: Acute on chronic respiratory failure Bacterial pneumonia COVID infection Flu A Interstitial lung disease Immunosuppressed Chronic O2 dependence 4L/min CHF/cardiomyopathy DM Adrenal insufficiency Plan: COVID protocol IV antibiotics Decadron Hold home medication immunosuppressive's Poor prognosis Move to ICU Diagnosis/Problems Diagnosis/Problems (1) COVID-19 (2) Influenza Status: Acute (3) Interstitial lung disease Status: Chronic (4) General weakness Status: Acute (5) Adrenal insufficiency (6) Chronic respiratory failure Status: Chronic YOSELIN GUTIERREZ DO Mar 22, 2022 06:03
[2022-03-22] MEDS: CEFEPIME 1,000 MG/NS 50 ML IVPB IV SCH ×6 (06:05→22:23)
[2022-03-22] MEDS: ENOXAPARIN 80 MG/0.8 ML (LOVENOX) SYR SC SCH ×2 (06:14→20:12)
[2022-03-22 06:59] LABS: BASOPHILS % (AUTO) 0 % (0-10); EOSINOPHILS % (AUTO) 0 % (0-10); HEMATOCRIT 37 % (35-52); HEMOGLOBIN 12.2 g/dL (11.5-16.0); LYMPHOCYTES # (AUTO) 1.6 10^3/uL (1.0-4.0); LYMPHOCYTES % (AUTO) 16 % (12-44); MEAN CORPUSCULAR HEMOGLOBIN 33 pg (25-34); MEAN CORPUSCULAR HGB CONC 33 g/dL (32-36); MEAN CORPUSCULAR VOLUME 101 fL (80-99); MEAN PLATELET VOLUME 10.8 fL (9.0-12.2); MONOCYTES # (AUTO) 0.2 10^3/uL (0.0-1.0); MONOCYTES % (AUTO) 2 % (0-12); NEUTROPHILS % (AUTO) 81 % (42-75); PLATELET COUNT 169 10^3/uL (130-400); WHITE BLOOD COUNT 9.9 10^3/uL (4.3-11.0)
[2022-03-22 07:20] LABS: ALBUMIN 2.9 GM/DL (3.2-4.5); BILIRUBIN,TOTAL 1.3 MG/DL (0.1-1.0); CALCIUM 8.4 MG/DL (8.5-10.1); CREATININE SERUM 0.8 MG/DL (0.60-1.30); POTASSIUM 3.1 MMOL/L (3.6-5.0); TOTAL PROTEIN 5.9 GM/DL (6.4-8.2)
[2022-03-22] MEDS ORDERED: KCL 10 MEQ TAB (MICRO K) PO SCH (08:00)
[2022-03-22] MEDS ORDERED: VANCOMYCIN 1000 MG/VIAL ONE (08:37)
[2022-03-22] MEDS: DOCUSATE SODIUM 100 MG (COLACE) CAP PO SCH ×2 (08:54→20:17)
[2022-03-22] MEDS: KCL 20 MEQ TAB (K-DUR) PO SCH ×2 (08:54→18:00)
[2022-03-22] MEDS: LACTOBACILLUS ACIDOPHILUS (PROBIOTIC) CAPSULE PO SCH (08:54)
[2022-03-22] MEDS: CALCIUM CARBONATE 600 MG (CALCARB) TAB PO SCH ×2 (08:54→20:11)
[2022-03-22] MEDS: PANTOPRAZOLE 40 MG (PROTONIX) TAB PO SCH ×2 (08:55→20:11)
[2022-03-22] MEDS: ESTRADIOL 1 MG TAB (ESTRACE) PO SCH (08:55)
[2022-03-22] MEDS: VITAMIN D3 25 MCG (1,000 UNITS) TABLET PO SCH (08:55)
[2022-03-22] MEDS: SENNOSIDES 8.6 MG (SENOKOT) TAB PO SCH ×2 (08:55→20:18)
[2022-03-22] MEDS: meTOproloL SUCCINATE 50 MG (TOPROL XL) TAB PO SCH ×2 (08:55→20:11)
[2022-03-22] MEDS: PREGABALIN 100 MG (LYRICA) CAPSULE PO SCH ×2 (08:55→20:11)
[2022-03-22] MEDS: guaiFENesin (MUCINEX) 600 MG TAB PO SCH ×2 (08:55→20:18)
[2022-03-22] MEDS: SACUBITRIL/VALSARTAN 24/26 MG (ENTRESTO) TABLET PO SCH ×2 (08:55→20:11)
[2022-03-22] MEDS: VANCOMYCIN 1 GM/NS 250 ML IVPB IV SCH ×2 (08:56)
--- NOTE | 2022-03-22 09:44 | Diagnostic Imaging Report ---
EXAMINATION: Chest 1 view HISTORY: Pneumonia COMPARISON: 03/21/2022 FINDINGS: Moderate bilateral interstitial and airspace opacities are unchanged. No pleural effusion or pneumothorax. Heart size is normal. IMPRESSION: 1. Unchanged moderate bilateral interstitial and airspace opacities suggestive of pneumonia. Dictated by: Dictated on workstation # [id number]
[2022-03-22] MEDS: RT--FLUTICASONE/SALMETEROL 232-14 (AIRDUO RespiCLICK) IH SCH ×2 (11:36→22:17)
[2022-03-22] MEDS: NS IV 1000 ML 1,000 ML IV SCH (14:28)
--- NOTE | 2022-03-22 15:00 | Consultation-Cardiology ---
HPI-Cardiology Cardiology Consultation: Date of Consultation 03/22/22 Time Seen by a Provider: 12:45 Date of Admission Attending Physician Mushtaq Snyder MD Admitting Physician Admitting Physician: Letha Turner DO Attending Physician: Letha Turner DO Consulting Physician BECKY PARIS MD, MA, FACP, FACC, [facility], CCD[facility] Physician requesting Card consult: Dr Turner HPI: Chief Complaint: Reason for consult: Dr Turner had suspected PAF 76 yo woman admitted to acute care (ICU) after the patient developed fever and shortness of breath and worsening resp status on the Rehab floor. We were asked to see her because A Fib had been suspected on some tele strips and an ECG. No cp or palp or syncope or swelling reported by the patient. She has been diagnosed with Covid pneumonia and sepsis. Review of Systems-Cardiology Review of Systems Constitutional: malaise, tiredness; No weight loss, No weight gain Eyes: No vision change Ears/Nose/Throat: No ear discharge, No nasal drainage Respiratory: As described under HPI Cardiovascular: As described under HPI Gastrointestinal: No diarrhea, No nausea, No vomiting Genitourinary: No dysuria, No hematuria Musculoskeletal: back pain (chronic) Skin: No rash, No ulcerations Psychiatric/Neurological: No seizure, No focal weakness, No syncope Hematologic: No bleeding abnormalities All Other Systems Reviewed Negative Unless Noted: Yes [id number]-Hkivos-Htyjhy Hx Patient Social History Marrital Status: Employed/Student: retired Smoking Status: Former Smoker Alcohol Use?: No Pt feels they are or have been: No Immunizations Up To Date Date of Pneumonia Vaccine: Jan 17, 2005 Date of Influenza Vaccine: Jan 17, 2022 Past Medical History PMH As described under Assessment. Family Medical History Family History: Cancer 03 FATHER, Onset:60 years & older ("Tumor between heart and lungs") Chest pain 09 SISTER, Onset:50's - 60 Congenital heart disease 09 SISTER, Onset:Pre- (Infant sister that at .) Family history: Arthritis 03 FATHER, Onset:50's - 60 Family history: Asthma 03 MOTHER, Onset:50's - 60 Family history: Cardiovascular disease 03 FATHER, Onset:Unknown 03 MOTHER, Onset:Unknown 09 SISTER, Onset:60 years & older Family history: Diabetes mellitus 03 FATHER, Onset:50's - 60 Family history: Hypertension 03 FATHER, Onset:40's - 50 03 MOTHER, Onset:40's - 50 09 SISTER, Onset:30's - 40 Heart disease 03 FATHER, Onset:40's - 50 03 MOTHER, Onset:40's - 50 09 SISTER, Onset:40's - 50 History of - respiratory disease 03 MOTHER, Onset:30's - 40 Myocardial infarction 09 SISTER, Onset:50's - 60 No Family History of: Abdominal aortic aneurysm Ilya's disease Alcoholism Aphasia Cancer of colon Cataract Congestive heart failure Cystic fibrosis Dementia Dysphagia Family history: Allergy Family history: Alzheimer's disease Family history: Breast disease Family history: Coronary thrombosis Family history: Gastrointestinal disease Family history: Glaucoma Family history: Osteoporosis Family history: Thyroid disorder Headache Hearing loss Hereditary disease History of - anemia History of - disorder History of drug abuse Human immunodeficiency virus (HIV) seropositivity Hypercholesterolemia Infertile Kidney disease Malignant neoplasm of lung Parkinson's disease Prostate cancer Psychotic disorder Seizure disorder Stroke Tuberculosis Visual impairment Allergies and Home Medications Allergies Coded Allergies: metoclopramide (Verified Allergy, Mild, 08/08/12) erythromycin base (Verified Allergy, Unknown, 08/08/12) morphine (Verified Allergy, Unknown, pt has rec Lortab & Hydromorphone in the past, 03/20/22) Patient Home Medication List Home Medication List Reviewed: Yes Acetaminophen (Acetaminophen) 500 Mg Tablet, 1,000 MG PO Q6H PRN for PAIN-MILD (1-4), (Reported) Entered as Reported by: FOX ANDRE on 06/24/211815 Last Action: Held Adalimumab (Humira) 20 Mg/0.2 Ml Syringekit, 20 MG SQ WED, (Reported) Entered as Reported by: TRUDY JOHNSON on 03/19/221317 Last Action: Held Albuterol Sulfate (Albuterol Sulfate) 2.5 Mg/3 Ml (0.083 %) Vial.neb, 3 ML NEB Q6H PRN for SHORTNESS OF BREATH, (Reported) Entered as Reported by: TRUDY JOHNSON on 03/19/221317 Last Action: Held Albuterol Sulfate (Albuterol Sulfate) 2.5 Mg/0.5 Ml Vial.neb, 2.5 MG INH HS, (Reported) Entered as Reported by: TRUDY JOHNSON on 03/19/221317 Last Action: Held Albuterol Sulfate (Proventil Hfa) 90 Mcg Hfa.aer.ad, 2 PUFF Q6H PRN for SHORTNESS OF BREATH, (Reported) Entered as Reported by: TRUDY JOHNSON on 03/19/221317 Last Action: Continued Biotin (Biotin) 10,000 Mcg Capsule, 10,000 MCG PO DAILY, (Reported) Entered as Reported by: TRUDY JOHNSON on 03/19/221317 Last Action: Held Budesonide/Formoterol Fumarate (Symbicort 160-4.5 Mcg Inhaler) 160 Mcg-4.5 Mcg/Actuation Hfa.aer.ad, 2 PUFF INH BID, (Reported) Entered as Reported by: TRUDY JOHNSON on 03/19/221317 Last Action: Converted Bumetanide (Bumetanide) 2 Mg Tablet, 2 MG PO DAILY, (Reported) Entered as Reported by: TRUDY JOHNSON on 03/19/221317 Last Action: Held Calcium Carbonate (Calcium) 600 Mg Calcium (1500 Mg) Tablet, 600 MG PO BID, (Reported) Entered as Reported by: TRUDY JOHNSON on 03/19/221317 Last Action: Continued Cholecalciferol (Vitamin D3) (Vitamin D3) 50 Mcg (2000 Unit) Capsule, 50 MCG PO DAILY, (Reported) Entered as Reported by: TRUDY JOHNSON on 03/19/221317 Last Action: Converted Cyanocobalamin (Cyanocobalamin Injection) 1,000 Mcg/Ml Inj, 1,000 MCG IM MONTHLY, (Reported) Entered as Reported by: FOX ANDRE on 06/24/211815 Last Action: Continued Estradiol (Estradiol Tablet) 0.5 Mg Tablet, 0.5 MG PO DAILY, (Reported) Entered as Reported by: TRUDY JOHNSON on 03/19/221317 Last Action: Converted Fexofenadine HCl (Oma Allergy) 180 Mg Tablet, 180 MG PO DAILY PRN for ALLERGY SYMPTOMS, (Reported) Entered as Reported by: TRUDY JOHNSON on 03/19/221317 Last Action: Converted Hydrocortisone/Pramoxine (Hydrocort-Pramoxine 2.5-1% Crm) 2.5 %-1 % Cream.appl, 1 APPLIC RC BID PRN for HEMMORRHOID DISCOMFORT, (Reported) Entered as Reported by: TRUDY JOHNSON on 03/19/221317 Last Action: Converted Lactobacillus Rhamnosus GG (Culturelle) 10 Billion Cell Capsule, 1 EACH PO DAILY, (Reported) Entered as Reported by: TRUDY JOHNSON on 03/19/221317 Last Action: Converted Metoprolol Succinate (Metoprolol Succinate) 50 Mg Tab.er.24h, 50 MG PO BID, (Reported) Entered as Reported by: FOX ANDRE on 06/24/211815 Last Action: Continued Nintedanib Esylate (Ofev) 100 Mg Capsule, 100 MG PO BID, (Reported) Entered as Reported by: TRUDY JOHNSON on 03/19/221317 Last Action: Converted Omeprazole (Omeprazole) 40 Mg Capsule.dr, 40 MG PO BID, (Reported) Entered as Reported by: FOX ANDRE on 06/24/211815 Last Action: Converted Ondansetron (Ondansetron Odt) 4 Mg Tab.rapdis, 4 MG PO Q6H PRN for SHORTNESS OF BREATH, (Reported) Entered as Reported by: TRUDY JOHNSON on 03/19/221317 Last Action: Continued Potassium Chloride (Klor-Con M10) 10 Meq Tab.er.prt, 10 MEQ PO BID, (Reported) Entered as Reported by: TRUDY JOHNSON on 03/19/221317 Last Action: Converted Prednisone (Prednisone) 10 Mg Tab, 10 MG PO BID, (Reported) Entered as Reported by: TRUDY JOHNSON on 03/19/221317 Last Action: Held Pregabalin (Pregabalin) 100 Mg Capsule, 100 MG PO DAILY, (Reported) Entered as Reported by: FOX ANDRE on 06/24/211823 Last Action: Continued Pregabalin (Pregabalin) 100 Mg Capsule, 200 MG PO HS, (Reported) Entered as Reported by: FOX ANDRE on 06/24/211823 Last Action: Continued Sacubitril/Valsartan (Entresto 24 mg-26 mg Tablet) 24 Mg-26 Mg Tablet, 1 TAB PO BID, (Reported) Entered as Reported by: TRUDY JOHNSON on 03/19/221317 Last Action: Continued Umeclidinium [place] (Incruse Ellipta) 62.5 Mcg/Actuation Blst.w.dev, 1 PUFF INH HS, (Reported) Entered as Reported by: TRUDY JOHNSON on 03/19/22 1318 Last Action: Continued Discontinued Medications Albuterol Sulfate (Ventolin Hfa) 1 Puff Puff, 2 PUFF IH Q4H, (Reported) Discontinued Reason: No Longer Taking Entered as Reported by: FOX ANDRE on 06/24/211937 Calcium Carbonate/Vitamin D3 (Calcium + Vitamin D Tablet) 1 Each Tablet, 1 EACH PO BID, (Reported) Discontinued Reason: No Longer Taking Entered as Reported by: FOX ANDRE on 06/24/211937 Spironolactone (Spironolactone) 25 Mg Tablet, 25 MG PO DAILY, (Reported) Discontinued Reason: No Longer Taking Entered as Reported by: FOX ANDRE on 06/24/211823 [Breo Ellipta] Unknown Strength , Unknown Dose DAILY, (Reported) Discontinued Reason: No Longer Taking Entered as Reported by: FOX ANDRE on 06/24/211937 [Humira] Unknown Strength , Unknown Dose WEEK, (Reported) Discontinued Reason: No Longer Taking Entered as Reported by: FOX ANDRE on 06/24/211825 [Vitamin D3] Unknown Strength , Unknown Dose DAILY, (Reported) Discontinued Reason: No Longer Taking Entered as Reported by: FOX ANDRE on 06/24/211937 [Vitamin E] Unknown Strength , Unknown Dose DAILY, (Reported) Discontinued Reason: No Longer Taking Entered as Reported by: FOX ANDRE on 06/24/211937 Physical Exam-Cardiology Physical Exam Vital Signs/I&O 03/22/22 03/22/22 03/22/22 03/22/22 04:29 05:15 07:00 08:00 Temp 36.9 37.2 Pulse 85 84 101 Resp 21 13 B/P (MAP) 112/61 (78) 100/67 (78) Pulse Ox 99 98 O2 Delivery Vapotherm Vapotherm O2 Flow Rate 30.00 30.00 100.00 100.00 03/22/22 03/22/22 03/22/22 03/22/22 08:00 11:00 12:00 12:00 Temp 38.0 Pulse 99 103 92 Resp 22 20 B/P (MAP) 114/63 (80) 114/63 (80) 125/68 (87) Pulse Ox 99 99 95 93 O2 Delivery Vapotherm Vapotherm Vapotherm Vapotherm O2 Flow Rate 30.00 30.00 30.00 30.00 100.00 100.00 100.00 FiO2 100 03/22/22 03/22/22 13:00 14:00 Pulse 93 85 Resp 23 23 Pulse Ox 97 96 O2 Delivery Vapotherm Vapotherm O2 Flow Rate 30.00 30.00 100.00 100.00 03/21/22 23:59 Intake Total 530 ml Balance 530 ml Capillary Refill : Constitutional: AAO x 3, well-developed, well-nourished HEENT: PERRL, EOMI, hearing is well preserved; No xanthelasmas are seen Neck: carotid pulses are 2 + bilaterally, with good upstrokes Respiratory: No accessory muscle use; chest is bilaterally symmetric, other (diminished air entry at the bases; coarse basal crackles) Cardiovascular: irregularly irregular, S1 and S2, systolic murmur (soft GARRETT at card base) Gastrointestinal: No tender; soft; No guarding, No rebound; audible bowel sounds Extremities: No clubbing, No cyanosis, No significant edema Neurologic/Psychiatric: oriented x 3, other (moves all limbs equally) Skin: No rash on exposed areas, No ulcerations on exposed areas Data Review Labs Laboratory Tests 03/21/22 16:34: Glucometer 187H 03/21/22 20:18: Glucometer 142H 03/22/22 05:15: Blood Gas Puncture Site RIGHT RADIAL, Blood Gas Patient Temperature 36.9, Arterial Blood pH 7.47H, Arterial Blood Partial Pressure CO2 34L, Arterial Blood Partial Pressure O2 79, Arterial Blood HCO3 25, Arterial Blood Total CO2 25.7, Arterial Blood Oxygen Saturation 98, Arterial Blood Base Excess 1.3, Beto Test YES-POS, Blood Gas Ventilator Setting NO, Blood Gas Inspired Oxygen NA 03/22/22 06:40: White Blood Count 9.9, Red Blood Count 3.65L, Hemoglobin 12.2, Hematocrit 37, Mean Corpuscular Volume 101H, Mean Corpuscular Hemoglobin 33, Mean Corpuscular Hemoglobin Concent 33, Red Cell Distribution Width 14.5, Platelet Count 169, Mean Platelet Volume 10.8, Immature Granulocyte % (Auto) 1, Neutrophils (%) (Auto) 81H, Lymphocytes (%) (Auto) 16, Monocytes (%) (Auto) 2, Eosinophils (%) (Auto) 0, Basophils (%) (Auto) 0, Neutrophils # (Auto) 8.0H, Lymphocytes # (Auto) 1.6, Monocytes # (Auto) 0.2, Eosinophils # (Auto) 0.0, Basophils # (Auto) 0.0, Immature Granulocyte # (Auto) 0.1, Sodium Level 135, Potassium Level 3.1L, Chloride Level 102, Carbon Dioxide Level 21, Anion Gap 12, Blood Urea Nitrogen 10, Creatinine 0.80, Estimat Glomerular Filtration Rate 75, BUN/Creatinine Ratio 13, Glucose Level 80, Calcium Level 8.4L, Corrected Calcium 9.3, Total Bilirubin 1.3H, Aspartate Amino Transf (AST/SGOT) 77H, Alanine Aminotransferase (ALT/SGPT) 166H, Alkaline Phosphatase 70, Total Protein 5.9L, Albumin 2.9L 03/22/22 08:41: Lactic Acid Level 1.19 03/22/22 11:26: Glucometer 164H Laboratory Tests 03/22/22 06:40 A/P-Cardiology Assessment/Admission Diagnosis Cardiac rhythm since 03/19/22: sinus, sinus tach, PACs, wandering atrial pacemaker, MAT - no A fib recorded on the ECG and tele strips in the last several days Ac resp failure to Covid pneumonia and sepsis - managed by Dr Turner Pul hypertension of undetermined etiology - see echo report below Hypokalemia H/o cardiomyopathy (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 Continue to monitor on Tele. I discussed this with Dr Turner * Monitor labs * Further recs based on hosp course BECKY PARIS MD [facility] Mar 22, 2022 15:00
[2022-03-22] MEDS: OFEV 100 MG PO SCH ×2 (15:33→19:04)
--- NOTE | 2022-03-22 17:54 | Tele-ICU Consult ---
Progress Note 76 y/o female transferred from rehab to ICU for hypoxemia The patient is Covid positive and influenza A positive. Currently is comfortable with O2 sat of 97% on nasal cannula Decadron started at 6mg Prognosis is guarded Focused Exam Lactate Level 03/22/22 08:41: Lactic Acid Level 1.19 Height, Weight, BMI Height: 5'1.50" Weight: 140lbs. 0.0oz. 63.049905ug; 29.88 BMI Method:Stated Labs Laboratory Tests 03/22/22 06:40 Results Results/Procedures Lab Laboratory Tests 03/22/22 06:40 Results Results/Procedures Labs Laboratory Tests 03/22/22 06:40 Patient resulted labs reviewed. Results Labs Labs Laboratory Tests 03/21/22 20:18: Glucometer 142H 03/22/22 05:15: Blood Gas Puncture Site RIGHT RADIAL, Blood Gas Patient Temperature 36.9, Arterial Blood pH 7.47H, Arterial Blood Partial Pressure CO2 34L, Arterial Blood Partial Pressure O2 79, Arterial Blood HCO3 25, Arterial Blood Total CO2 25.7, Arterial Blood Oxygen Saturation 98, Arterial Blood Base Excess 1.3, Beto Test YES-POS, Blood Gas Ventilator Setting NO, Blood Gas Inspired Oxygen NA 03/22/22 06:40: White Blood Count 9.9, Red Blood Count 3.65L, Hemoglobin 12.2, Hematocrit 37, Mean Corpuscular Volume 101H, Mean Corpuscular Hemoglobin 33, Mean Corpuscular Hemoglobin Concent 33, Red Cell Distribution Width 14.5, Platelet Count 169, Mean Platelet Volume 10.8, Immature Granulocyte % (Auto) 1, Neutrophils (%) (Auto) 81H, Lymphocytes (%) (Auto) 16, Monocytes (%) (Auto) 2, Eosinophils (%) (Auto) 0, Basophils (%) (Auto) 0, Neutrophils # (Auto) 8.0H, Lymphocytes # (Auto) 1.6, Monocytes # (Auto) 0.2, Eosinophils # (Auto) 0.0, Basophils # (Auto) 0.0, Immature Granulocyte # (Auto) 0.1, Sodium Level 135, Potassium Level 3.1L, Chloride Level 102, Carbon Dioxide Level 21, Anion Gap 12, Blood Urea Nitrogen 10, Creatinine 0.80, Estimat Glomerular Filtration Rate 75, BUN/Creatinine Ratio 13, Glucose Level 80, Calcium Level 8.4L, Corrected Calcium 9.3, Total Bilirubin 1.3H, Gamma Glutamyl Transpeptidase 1460H, Aspartate Amino Transf (AST/SGOT) 77H , Alanine Aminotransferase (ALT/SGPT) 166H, Alkaline Phosphatase 70, Total Protein 5.9L, Albumin 2.9L 03/22/22 08:41: Lactic Acid Level 1.19 03/22/22 11:26: Glucometer 164H 03/22/22 15:58: Glucometer 180H GAEL CALDWELL MD Mar 22, 2022 17:54
[2022-03-22] MEDS: RT-ALBUTEROL HFA 8.5 GM INHALER IH SCH (22:16)
[2022-03-22] MEDS: UMECLIDINIUM BROMIDE (INCRUSE ELLIPTA) 7'S IH SCH (22:17)
[2022-03-23] VITALS (9 sets, daily range): BP systolic 98–150; BP diastolic 51–89
[2022-03-23 04:30] LABS: EOSINOPHILS % (AUTO) 0 % (0-10); HEMOGLOBIN 10.4 g/dL (11.5-16.0); MEAN CORPUSCULAR HEMOGLOBIN 33 pg (25-34)
[2022-03-23 04:33] LABS: BASOPHILS % (AUTO) 0 % (0-10); HEMATOCRIT 31 % (35-52); LYMPHOCYTES # (AUTO) 0.4 10^3/uL (1.0-4.0); LYMPHOCYTES % (AUTO) 5 % (12-44); MEAN CORPUSCULAR HGB CONC 33 g/dL (32-36); MEAN CORPUSCULAR VOLUME 100 fL (80-99); MONOCYTES # (AUTO) 0.2 10^3/uL (0.0-1.0); MONOCYTES % (AUTO) 3 % (0-12); NEUTROPHILS % (AUTO) 91 % (42-75); PLATELET COUNT 129 10^3/uL (130-400); WHITE BLOOD COUNT 7.7 10^3/uL (4.3-11.0)
[2022-03-23 04:55] LABS: ALBUMIN 2.5 GM/DL (3.2-4.5); BILIRUBIN,TOTAL 0.9 MG/DL (0.1-1.0); CALCIUM 8.1 MG/DL (8.5-10.1); CREATININE SERUM 0.66 MG/DL (0.60-1.30); POTASSIUM 3.6 MMOL/L (3.6-5.0); TOTAL PROTEIN 5.2 GM/DL (6.4-8.2)
[2022-03-23 04:57] LABS: SMEAR SCAN COMMENT YES
[2022-03-23] MEDS: inSUlin ASPART (NovoLOG) 1 UNIT/0.01 ML (CHARGE PER UNIT) SC SCH ×4 (05:11→20:56)
[2022-03-23] MEDS: ENOXAPARIN 80 MG/0.8 ML (LOVENOX) SYR SC SCH ×2 (06:02→19:02)
[2022-03-23] MEDS: CEFEPIME 1,000 MG/NS 50 ML IVPB IV SCH ×6 (06:03→22:17)
[2022-03-23] MEDS: NS IV 1000 ML 1,000 ML IV SCH ×2 (07:37→15:22)
[2022-03-23] MEDS: ESTRADIOL 1 MG TAB (ESTRACE) PO SCH (08:09)
[2022-03-23] MEDS: PANTOPRAZOLE 40 MG (PROTONIX) TAB PO SCH ×2 (08:09→19:41)
[2022-03-23] MEDS: guaiFENesin (MUCINEX) 600 MG TAB PO SCH ×2 (08:09→19:41)
[2022-03-23] MEDS: meTOproloL SUCCINATE 50 MG (TOPROL XL) TAB PO SCH ×2 (08:10→19:42)
[2022-03-23] MEDS: VITAMIN D3 25 MCG (1,000 UNITS) TABLET PO SCH (08:17)
[2022-03-23] MEDS: SACUBITRIL/VALSARTAN 24/26 MG (ENTRESTO) TABLET PO SCH ×2 (08:17→19:41)
[2022-03-23] MEDS: PREGABALIN 100 MG (LYRICA) CAPSULE PO SCH ×2 (08:17→19:41)
[2022-03-23] MEDS: LACTOBACILLUS ACIDOPHILUS (PROBIOTIC) CAPSULE PO SCH (08:17)
[2022-03-23] MEDS: KCL 20 MEQ TAB (K-DUR) PO SCH ×2 (08:17→17:01)
[2022-03-23] MEDS: CALCIUM CARBONATE 600 MG (CALCARB) TAB PO SCH ×2 (08:17→19:40)
[2022-03-23] MEDS: OFEV 100 MG PO SCH ×2 (08:20→17:00)
[2022-03-23] MEDS: DOCUSATE SODIUM 100 MG (COLACE) CAP PO SCH ×2 (08:21→19:41)
[2022-03-23] MEDS: SENNOSIDES 8.6 MG (SENOKOT) TAB PO SCH ×2 (08:21→19:42)
[2022-03-23] MEDS ORDERED: LORazepam INJ 2 MG/ML (ATIVAN) VIAL IVP PRN (08:45)
[2022-03-23] MEDS ORDERED: LORazepam INJ 2 MG/ML (ATIVAN) VIAL ONE (08:46)
[2022-03-23] MEDS: RT--FLUTICASONE/SALMETEROL 232-14 (AIRDUO RespiCLICK) IH SCH (08:49)
[2022-03-23] MEDS ORDERED: TROUGH ORDER-PHARMACY XX NR (09:00)
--- NOTE | 2022-03-23 09:45 | Progress Note - Cardiology ---
Cardiology SOAP Progress Note Subjective: In bed on Bi-pap Lethargic, unable to provide any information Objective: I&O/Vital Signs 03/23/22 03/23/22 03/23/22 03/23/22 20:00 20:00 21:00 22:00 Pulse 52 88 49 Resp 27 B/P (MAP) 157/78 (104) 155/72 (99) 154/77 (102) Pulse Ox 97 95 97 O2 Delivery NIV Bilevel NIV Bilevel NIV Bilevel NIV Bilevel O2 Flow Rate 55.00 55.00 55.00 FiO2 55 03/23/22 03/23/22 03/23/22 03/24/22 23:00 23:02 23:59 00:00 Pulse 55 54 48 Resp 27 B/P (MAP) 152/73 (99) 156/71 (99) Pulse Ox 96 95 97 O2 Delivery NIV Bilevel NIV Bilevel NIV Bilevel O2 Flow Rate 55.00 55.00 55.00 FiO2 55 03/24/22 03/24/22 03/24/22 03/24/22 00:04 01:00 01:00 02:00 Temp 36.1 Pulse 62 62 62 B/P (MAP) 170/86 (114) 163/81 (108) Pulse Ox 96 95 O2 Delivery NIV Bilevel NIV Bilevel O2 Flow Rate 55.00 55.00 03/24/22 03/24/22 03/24/22 03/24/22 03:00 04:00 04:00 05:00 Pulse 58 46 46 Resp 24 27 B/P (MAP) 169/90 (116) 156/73 (100) 153/71 (98) Pulse Ox 96 94 93 O2 Delivery NIV Bilevel NIV Bilevel NIV Bilevel NIV Bilevel O2 Flow Rate 55.00 55.00 55.00 FiO2 55 03/24/22 03/24/22 03/24/22 05:23 06:00 07:36 Pulse 101 Resp 21 B/P (MAP) 155/80 (105) Pulse Ox 94 95 91 O2 Delivery Vapotherm NIV Bilevel Vapotherm O2 Flow Rate 40.00 55.00 40.00 FiO2 90 90 03/24/22 00:00 Intake Total 50 ml Output Total 575 ml Balance -525 ml Weight (Pounds): 140 Weight (Ounces): 0.0 Weight (Calculated Kilograms): 63.179113 Constitutional: AAO x 3, well-developed, well-nourished Respiratory: No accessory muscle use; chest is bilaterally symmetric, other (diminished air entry at the bases; coarse basal crackles) Cardiovascular: irregularly irregular, S1 and S2, systolic murmur (soft GARRETT at card base) Gastrointestional: No tender; soft; No guarding, No rebound; audible bowel sounds Extremities: No clubbing, No cyanosis, No significant edema Neurologic/Psychiatric: oriented x 3, other (moves all limbs equally) Skin: No rash on exposed areas, No ulcerations on exposed areas Results/Procedures: Labs Laboratory Tests 03/23/22 09:20: Vancomycin Level Trough 5.6L 03/23/22 10:54: Glucometer 119H 03/23/22 12:09: Blood Gas Puncture Site RT RAD, Blood Gas Patient Temperature 37.1, Arterial Blood pH 7.45H, Arterial Blood Partial Pressure CO2 35, Arterial Blood Partial Pressure O2 94H, Arterial Blood HCO3 24, Arterial Blood Total CO2 24.7, Arterial Blood Oxygen Saturation 98, Arterial Blood Base Excess 0.0, Beto Test NA, Blood Gas Ventilator Setting NO, Blood Gas Inspired Oxygen 65% 03/23/22 15:21: Glucometer 144H 03/23/22 20:52: Glucometer 137H 03/24/22 03:45: White Blood Count 7.5, Red Blood Count 3.18L, Hemoglobin 10.6L, Hematocrit 32L, Mean Corpuscular Volume 101H, Mean Corpuscular Hemoglobin 33, Mean Corpuscular Hemoglobin Concent 33, Red Cell Distribution Width 14.3, Platelet Count 184, Mean Platelet Volume 11.3, Immature Granulocyte % (Auto) 1, Neutrophils (%) (Auto) 86H, Lymphocytes (%) (Auto) 9L, Monocytes (%) (Auto) 4, Eosinophils (%) (Auto) 0, Basophils (%) (Auto) 0, Neutrophils # (Auto) 6.4, Lymphocytes # (Auto) 0.7L, Monocytes # (Auto) 0.3, Eosinophils # (Auto) 0.0, Basophils # (Auto) 0.0, Immature Granulocyte # (Auto) 0.1, Sodium Level 137, Potassium Level 4.2, Chloride Level 107, Carbon Dioxide Level 21, Anion Gap 9, Blood Urea Nitrogen 15, Creatinine 0.72, Estimat Glomerular Filtration Rate 86, BUN/Creatinine Ratio 21, Glucose Level 123H, Calcium Level 8.2L, Corrected Calcium 9.4, Total Bilirubin 0.8, Aspartate Amino Transf (AST/SGOT) 69H, Alanine Aminotransferase (ALT/SGPT) 91H, Alkaline Phosphatase 54, Total Protein 5.4L, Albumin 2.5L 03/24/22 05:10: Blood Gas Puncture Site LEFT RADIAL, Blood Gas Patient Temperature 37, Arterial Blood pH 7.39, Arterial Blood Partial Pressure CO2 36, Arterial Blood Partial Pressure O2 109H, Arterial Blood HCO3 21L, Arterial Blood Total CO2 22.2, Arterial Blood Oxygen Saturation 99, Arterial Blood Base Excess -3.0L, Beto Test YES-POS, Blood Gas Ventilator Setting NO, Blood Gas Inspired Oxygen N A/P: Assessment: Cardiac rhythm since 03/19/22: sinus, sinus tach, PACs, wandering atrial pacemaker, MAT - no A fib recorded on the ECG and tele strips in the last several days Ac resp failure to Covid pneumonia and sepsis - managed by Dr Yue Lundberg hypertension of undetermined etiology - see echo report below Hypokalemia - resolved H/o cardiomyopathy (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 Continue to monitor on Tele * Monitor labs * Further recs based on hosp course BELÉN MIN Mar 23, 2022 09:45
[2022-03-23] MEDS: VANCOMYCIN 1 GM/NS 250 ML IVPB IV SCH ×6 (10:17→22:17)
[2022-03-23] MEDS: DexMEDEtomidine 250 ML DRIP 250 ML IV SCH (11:05)
--- NOTE | 2022-03-23 11:05 | Tele-ICU Progress Note ---
Subjective Date Seen by a Provider: Mar 23, 2022 Time Seen by a Provider: 11:04 Subjective/Events-last exam (Tele-ICU Physician , consultation) Available chart/ vitals / labs / Images reviewed H&P is from ER notes Patient's information available about PMH, allergy reviewed in EMR. ROS as per chart and RN report Video assessment done using teleICU camera, rest of exam as per RN Discussed with RN. This patient admitted with the weakness and shortness of breath from rehab floor and found to have a COVID19 pneumonia, influenza A and pneumonia. Based on her pulmonary medications and a chest x-ray I feel that she may have an underlying idiopathic pulmonary fibrosis. Echocardiogram done during this admission revealed severe pulmonary hypertension. And is being followed by cardiology service for possible multifocal atrial tachycardia. Patient on anticoagulant therapy. This a.m. she was on Vapotherm but she could not tolerate and subsequently was tried her on BiPAP ventilation and she was also very anxious unable to tolerate. Hence we have started her on a Precedex drip and change of the BiPAP to AVAPS ventilation. She is somewhat comfortable now. He had repeat blood gas done on AVAPS ventilation he is satisfactory. Impression 1. Acute COVID19 pneumonia 2. Influenza A infection 3. Superadded bacterial pneumonia cannot be ruled out 4. Possible underlying idiopathic pulmonary fibrosis 5. Severe pulmonary hypertension most likely due to underlying pulmonary fibrosis. 6. Multifocal atrial tachycardia due to lung disease. Recommendations 1. We will continue antibiotic therapy per primary care 2. Continue AVAPS ventilation and repeat blood gases in a.m. 3. Keep her comfortable with the Precedex drip 4. Tachycardia poor cardiology. 5. DVT prophylaxis and ulcer prophylaxis. Sepsis Event Evaluation Height, Weight, BMI Height: 5'1.50" Weight: 140lbs. 0.0oz. [id number]; 29.88 BMI Method:Stated Focused Exam Lactate Level 03/22/22 08:41: Lactic Acid Level 1.19 Exam Exam Patient acknowledged, consented, and participated in this virtual visit which was conducted using real time audio/video Vital Signs Date Time Temp Pulse Resp B/P (MAP) Pulse Ox O2 Delivery O2 Flow Rate FiO2 03/23/22 10:00 147 40 98 NIV Bilevel 75.00 03/23/22 09:00 101 28 109/65 (80) 98 NIV Bilevel 75.00 03/23/22 08:43 147 40 97 75.00 03/23/22 08:40 98 NIV Bilevel 75.00 03/23/22 08:00 135 25 88/53 (65) 90 Vapotherm 35.00 85.00 03/23/22 08:00 37.1 03/23/22 07:26 110 03/23/22 07:00 89 31 109/86 (94) 92 Vapotherm 35.00 65.00 03/23/22 06:00 85 13 90 Vapotherm 35.00 65.00 03/23/22 05:00 78 16 103/89 (94) 93 Vapotherm 35.00 65.00 03/23/22 04:00 82 28 98/60 (73) 95 Vapotherm 35.00 65.00 03/23/22 03:00 72 29 103/54 (70) 93 Vapotherm 35.00 65.00 03/23/22 02:36 94 Vapotherm 35.00 65 03/23/22 02:00 69 28 94 Vapotherm 35.00 65.00 03/23/22 01:00 73 22 95 Vapotherm 35.00 65.00 03/23/22 01:00 72 03/23/22 00:01 Vapotherm 35.00 65.00 03/23/22 00:00 66 22 100/51 (67) 96 Vapotherm 30.00 100.00 03/22/22 23:00 93 19 97 Vapotherm 30.00 100.00 03/22/22 22:29 93 Vapotherm 35.00 80 03/22/22 22:00 70 26 100 Vapotherm 30.00 100.00 03/22/22 21:00 72 25 100 Vapotherm 30.00 100.00 03/22/22 20:51 77 03/22/22 20:00 104 91 Vapotherm 30.00 100.00 03/22/22 20:00 99 Vapotherm 30.00 90 03/22/22 19:00 76 20 94 Vapotherm 30.00 100.00 03/22/22 18:00 77 25 100 Vapotherm 30.00 100.00 03/22/22 17:00 85 18 110/72 (85) 95 Vapotherm 30.00 100.00 03/22/22 16:00 37.3 03/22/22 16:00 82 25 87/63 (71) 96 Vapotherm 30.00 100.00 03/22/22 15:00 92 20 97 Vapotherm 30.00 100.00 03/22/22 14:00 85 23 96 Vapotherm 30.00 100.00 03/22/22 13:00 93 23 97 Vapotherm 30.00 100.00 03/22/22 13:00 92 03/22/22 12:00 92 20 125/68 (87) 93 Vapotherm 30.00 100.00 03/22/22 12:00 38.0 103 22 114/63 (80) 95 Vapotherm 30.00 100.00 I & O 03/23/22 07:00 Intake Total 850 ml Output Total 675 ml Balance 175 ml Height & Weight Height: 5'1.50" Weight: 140lbs. 0.0oz. [id number]; 29.88 BMI Method:Stated General Appearance: WD/WN, Anxious, Chronically ill, Mild Distress HEENT: PERRL/EOMI, Normal ENT Inspection, Pharynx Normal Neck: Full Range of Motion, Normal Inspection, Non Tender, Supple, Carotid Bruit Respiratory: Chest Non Tender, No Respiratory Distress, Accessory Muscle Use, Decreased Breath Sounds, Wheezing Cardiovascular: Regular Rate, Rhythm, No Edema, No Gallop, No JVD, No Murmur, Normal Peripheral Pulses Extremity: Normal Capillary Refill, Normal Inspection, Normal Range of Motion, Non Tender, No Calf Tenderness, No Pedal Edema Neurologic/Psychiatric: Alert, Oriented x3, floor framer II-XII Norm as Tested, De pressed Affect, Motor Weakness Skin: Normal Color, Warm/Dry Lymphatic: No Adenopathy Results Lab Laboratory Tests 03/22/22 06:40 03/23/22 04:00 Assessment/Plan Assessment/Plan as above Critical Care: Critically Ill Patient Time spent with patient (mins): 35 MARY KATE WEBB MD Mar 23, 2022 11:05
--- NOTE | 2022-03-23 11:38 | Progress Note ---
[facility] 1138: Subjective Date Seen by a Provider: Mar 23, 2022 Time Seen by a Provider: 10:00 Subjective/Events-last exam This is a 76-year-old female of Dr. Snyder's with PMH of interstitial lung disease who Dr. Turner admitted to inpatient rehab 03/21 following influenza induced debility but started running a 104 fever prompting septic work-up which revealed COVID swab positive with bacterial pneumonia on chest x-ray and sepsis with elevated lactic acid. She was moved to the ICU. Today pt reports she is nauseous and has a headache, reports loose BMs. No SOB, CP, palpitations. She was moved from [facility] to [facility] this morning and a PICC line was placed. Review of Systems General: No Chills, No Night Sweats HEENT: Head Aches; No Visual Changes Pulmonary: No Dyspnea, No Cough Cardiovascular: No: Chest Pain, Palpitations Gastrointestinal: Nausea; No: Vomiting, Abdominal Pain Genitourinary: No Dysuria, No Frequency Musculoskeletal: No: neck pain, shoulder pain Neurological: No: Weakness, Numbness Focused Exam Lactate Level 03/22/22 08:41: Lactic Acid Level 1.19 Objective Exam Last Set of Vital Signs Vital Signs Date Time Temp Pulse Resp B/P (MAP) Pulse Ox O2 Delivery O2 Flow Rate FiO2 03/23/22 11:19 88 33 96 65.00 03/23/22 10:00 NIV Bilevel 03/23/22 08:00 37.1 03/23/22 02:36 65 Capillary Refill : I&O Intake and Output 03/23/22 00:00 Intake Total 570 ml Output Total 375 ml Balance 195 ml Intake Oral 570 ml Output Urine Total 375 ml # Voids 1 # Bowel Movements 1 General: Alert, Oriented X3, Cooperative, Mild Distress HEENT: Atraumatic, PERRLA Neck: Supple, No JVD Lungs: Other (diffuse wheezing) Heart: Regular Rate, Normal S1, Normal S2 Abdomen: Normal Bowel Sounds, Soft, No Tenderness Extremities: No Cyanosis, Normal Pulses Skin: No Significant Lesion Neuro: Normal Speech, Sensation Intact Psych/Mental Status: Mental Status NL, Mood NL Results Lab Laboratory Tests 03/22/22 15:58: Glucometer 180H 03/22/22 20:06: Glucometer 129H 03/23/22 04:00: White Blood Count 7.7, Red Blood Count 3.15L, Hemoglobin 10.4L, Hematocrit 31L, Mean Corpuscular Volume 100H, Mean Corpuscular Hemoglobin 33, Mean Corpuscular Hemoglobin Concent 33, Red Cell Distribution Width 14.0, Platelet Count 129L, Mean Platelet Volume 12.0, Immature Granulocyte % (Auto) 1, Neutrophils (%) (Auto) 91H, Lymphocytes (%) (Auto) 5L, Monocytes (%) (Auto) 3, Eosinophils (%) (Auto) 0, Basophils (%) (Auto) 0, Neutrophils # (Auto) 7.0, Lymphocytes # (Auto) 0.4L, Monocytes # (Auto) 0.2, Eosinophils # (Auto) 0.0, Basophils # (Auto) 0.0, Immature Granulocyte # (Auto) 0.1, Percent Immature Platelet Fraction 8.5H, Sodium Level 132L, Potassium Level 3.6, Chloride Level 103, Carbon Dioxide Level 18L, Anion Gap 11, Blood Urea Nitrogen 10, Creatinine 0.66, Estimat Glomerular Filtration Rate 90, BUN/Creatinine Ratio 15, Glucose Level 113H, Calcium Level 8.1L, Corrected Calcium 9.3, Total Bilirubin 0.9, Aspartate Amino Transf (AST/SGOT) 48H, Alanine Aminotransferase (ALT/SGPT) 105H, Alkaline Phosphatase 63, Total Protein 5.2L, Albumin 2.5L, Smear Scan YES 03/23/22 09:20: Vancomycin Level Trough 5.6L 03/23/22 10:54: Glucometer 119H Assessment/Plan Assessment/Plan Assess & Plan/Chief Complaint Assessment: Acute on chronic respiratory failure Bacterial pneumonia COVID infection Flu A Interstitial lung disease Immunosuppressed Chronic O2 dependence 4L/min CHF/cardiomyopathy DM Adrenal insufficiency Plan: BiPAP started this am Precedex as needed PICC line in place COVID protocol IV antibiotics Decadron Hold home medication immunosuppressive's Poor prognosis LETHA TURNER DO 03/24/22 0525: Subjective Subjective/Events-last exam Progressively declining PICC placement Likely will need intubated at her insistence but poor prognosis given her ILD Review of Systems Pulmonary: Dyspnea Objective Exam General: Alert, Mild Distress Heart: Regular Rate Psych/Mental Status: Mental Status NL Supervisory-Addendum Brief Verification & Attestation Participated in pt care: history, MDM, physical Personally performed: exam, history, MDM, supervision of care Care discussed with: Medical Student Procedures: n/a Results interpretation: Verified all documentation Verification and Attestation of Medical Student E/M Service A medical student performed and documented this service in my presence. I reviewed and verified all information documented by the medical student and made modifications to such information, when appropriate. I personally performed the physical exam and medical decision making. Letha Turner Mar 24, 2022,05:24 DARÍO VASQUEZ Mar 23, 2022 11:38 LETHA TURNER DO Mar 24, 2022 05:25
[2022-03-23 12:15] LABS: ABG OXYGEN SATURATION 98 % (94-100); ABG PCO2 35 MMHG (35-45); ABG PH 7.45 (7.37-7.43); ABG PO2 94 MMHG (79-93); ABG TCO2 24.7 MMOL/L (21.0-31.0)
[2022-03-23 12:16] LABS: INSPIRED O2 65%; PATIENT TEMP 37.1; VENTILATOR NO
--- NOTE | 2022-03-23 12:31 | Progress Note - Cardiology ---
Cardiology SOAP Progress Note Subjective: In bed on Bi-pap Lethargic, unable to provide any information Objective: I&O/Vital Signs 03/23/22 03/23/22 03/23/22 03/23/22 01:00 01:00 02:00 02:36 Pulse 72 73 69 Resp 22 28 B/P (MAP) Pulse Ox 95 94 94 O2 Delivery Vapotherm Vapotherm Vapotherm O2 Flow Rate 35.00 35.00 35.00 65.00 65.00 FiO2 65 03/23/22 03/23/22 03/23/22 03/23/22 03:00 04:00 05:00 06:00 Pulse 72 82 78 85 Resp 29 28 16 13 B/P (MAP) 103/54 (70) 98/60 (73) 103/89 (94) Pulse Ox 93 95 93 90 O2 Delivery Vapotherm Vapotherm Vapotherm Vapotherm O2 Flow Rate 35.00 35.00 35.00 35.00 65.00 65.00 65.00 65.00 03/23/22 03/23/22 03/23/22 03/23/22 07:00 07:26 08:00 08:00 Temp 37.1 Pulse 89 110 135 Resp 31 25 B/P (MAP) 109/86 (94) 88/53 (65) Pulse Ox 92 90 O2 Delivery Vapotherm Vapotherm O2 Flow Rate 35.00 35.00 65.00 85.00 03/23/22 03/23/22 03/23/22 03/23/22 08:40 08:43 09:00 10:00 Pulse 147 101 147 Resp 40 28 40 B/P (MAP) 109/65 (80) Pulse Ox 98 97 98 98 O2 Delivery NIV Bilevel NIV Bilevel NIV Bilevel O2 Flow Rate 75.00 75.00 75.00 75.00 03/23/22 03/23/22 03/23/22 03/23/22 11:00 11:05 11:15 11:19 Pulse 105 110 98 88 Resp 32 35 33 B/P (MAP) 141/71 (94) 137/74 (95) Pulse Ox 91 100 96 O2 Delivery NIV Bilevel NIV Bilevel O2 Flow Rate 75.00 65.00 65.00 03/22/22 23:59 Intake Total 450 ml Output Total 375 ml Balance 75 ml Weight (Pounds): 140 Weight (Ounces): 0.0 Weight (Calculated Kilograms): 63.479076 Constitutional: AAO x 3, well-developed, well-nourished Respiratory: No accessory muscle use; chest is bilaterally symmetric, other (diminished air entry at the bases; coarse basal crackles) Cardiovascular: irregularly irregular, S1 and S2, systolic murmur (soft GARRETT at card base) Gastrointestional: No tender; soft; No guarding, No rebound; audible bowel sounds Extremities: No clubbing, No cyanosis, No significant edema Neurologic/Psychiatric: oriented x 3, other (moves all limbs equally) Skin: No rash on exposed areas, No ulcerations on exposed areas Results/Procedures: Labs Laboratory Tests 03/22/22 15:58: Glucometer 180H 03/22/22 20:06: Glucometer 129H 03/23/22 04:00: White Blood Count 7.7, Red Blood Count 3.15L, Hemoglobin 10.4L, Hematocrit 31L, Mean Corpuscular Volume 100H, Mean Corpuscular Hemoglobin 33, Mean Corpuscular Hemoglobin Concent 33, Red Cell Distribution Width 14.0, Platelet Count 129L, Mean Platelet Volume 12.0, Immature Granulocyte % (Auto) 1, Neutrophils (%) (Auto) 91H, Lymphocytes (%) (Auto) 5L, Monocytes (%) (Auto) 3, Eosinophils (%) (Auto) 0, Basophils (%) (Auto) 0, Neutrophils # (Auto) 7.0, Lymphocytes # (Auto) 0.4L, Monocytes # (Auto) 0.2, Eosinophils # (Auto) 0.0, Basophils # (Auto) 0.0, Immature Granulocyte # (Auto) 0.1, Percent Immature Platelet Fraction 8.5H, Sodium Level 132L, Potassium Level 3.6, Chloride Level 103, Carbon Dioxide Level 18L, Anion Gap 11, Blood Urea Nitrogen 10, Creatinine 0.66, Estimat Glomerular Filtration Rate 90, BUN/Creatinine Ratio 15, Glucose Level 113H, Calcium Level 8.1L, Corrected Calcium 9.3, Total Bilirubin 0.9, Aspartate Amino Transf (AST/SGOT) 48H, Alanine Aminotransferase (ALT/SGPT) 105H, Alkaline Phosphatase 63, Total Protein 5.2L, Albumin 2.5L, Smear Scan YES 03/23/22 09:20: Vancomycin Level Trough 5.6L 03/23/22 10:54: Glucometer 119H 03/23/22 12:09: Blood Gas Puncture Site RT RAD, Blood Gas Patient Temperature 37.1, Arterial Blood pH 7.45H, Arterial Blood Partial Pressure CO2 35, Arterial Blood Partial Pressure O2 94H, Arterial Blood HCO3 24, Arterial Blood Total CO2 24.7, Arterial Blood Oxygen Saturation 98, Arterial Blood Base Excess 0.0, Beto Test NA, Blood Gas Ventilator Setting NO, Blood Gas Inspired Oxygen 65% Laboratory Tests 03/22/22 06:40 03/23/22 04:00 A/P: Assessment: Ac resp failure to Covid pneumonia and sepsis (worsening status) - managed by Dr Turner Cardiac rhythm since 03/19/22: sinus, sinus tach, PACs, wandering atrial pacemaker, MAT - no A fib recorded on the ECG and tele strips in the last several days Pulm hypertension of undetermined etiology - see echo report below Hypokalemia - resolved H/o cardiomyopathy (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 Continue to monitor on Tele * Monitor labs * Further recs based on hosp course BECKY PARIS MD FACP [facility] Mar 23, 2022 12:31
[2022-03-24] MEDS: RT-ALBUTEROL HFA 8.5 GM INHALER IH SCH (00:21)
[2022-03-24] MEDS: RT--FLUTICASONE/SALMETEROL 232-14 (AIRDUO RespiCLICK) IH SCH ×2 (00:21→07:33)
[2022-03-24] MEDS: UMECLIDINIUM BROMIDE (INCRUSE ELLIPTA) 7'S IH SCH (00:22)
[2022-03-24 04:23] LABS: BASOPHILS % (AUTO) 0 % (0-10); EOSINOPHILS % (AUTO) 0 % (0-10); HEMATOCRIT 32 % (35-52); HEMOGLOBIN 10.6 g/dL (11.5-16.0); LYMPHOCYTES # (AUTO) 0.7 10^3/uL (1.0-4.0); LYMPHOCYTES % (AUTO) 9 % (12-44); MEAN CORPUSCULAR HEMOGLOBIN 33 pg (25-34); MEAN CORPUSCULAR HGB CONC 33 g/dL (32-36); MEAN CORPUSCULAR VOLUME 101 fL (80-99); MEAN PLATELET VOLUME 11.3 fL (9.0-12.2); MONOCYTES # (AUTO) 0.3 10^3/uL (0.0-1.0); MONOCYTES % (AUTO) 4 % (0-12); NEUTROPHILS # (AUTO) 6.4 10^3/uL (1.8-7.8); NEUTROPHILS % (AUTO) 86 % (42-75); PLATELET COUNT 184 10^3/uL (130-400); WHITE BLOOD COUNT 7.5 10^3/uL (4.3-11.0)
[2022-03-24 04:42] LABS: ALBUMIN 2.5 GM/DL (3.2-4.5); POTASSIUM 4.2 MMOL/L (3.6-5.0)
[2022-03-24 04:43] LABS: CALCIUM 8.2 MG/DL (8.5-10.1)
[2022-03-24 04:45] LABS: TOTAL PROTEIN 5.4 GM/DL (6.4-8.2)
[2022-03-24 04:46] LABS: BILIRUBIN,TOTAL 0.8 MG/DL (0.1-1.0)
[2022-03-24 04:48] LABS: CREATININE SERUM 0.72 MG/DL (0.60-1.30)
[2022-03-24 05:31] LABS: ABG OXYGEN SATURATION 99 % (94-100); ABG PCO2 36 MMHG (35-45); ABG PH 7.39 (7.37-7.43); ABG PO2 109 MMHG (79-93); ABG TCO2 22.2 MMOL/L (21.0-31.0); ALLENS TEST YES-POS; INSPIRED O2 N; PATIENT TEMP 37; VENTILATOR NO
[2022-03-24] MEDS: inSUlin ASPART (NovoLOG) 1 UNIT/0.01 ML (CHARGE PER UNIT) SC SCH ×3 (05:36→16:17)
[2022-03-24] MEDS: ENOXAPARIN 80 MG/0.8 ML (LOVENOX) SYR SC SCH (09:05)
[2022-03-24] MEDS: CEFEPIME 1,000 MG/NS 50 ML IVPB IV SCH ×2 (09:05)
[2022-03-24] MEDS: OFEV 100 MG PO SCH ×2 (09:06→18:00)
[2022-03-24] MEDS: CALCIUM CARBONATE 600 MG (CALCARB) TAB PO SCH (09:07)
[2022-03-24] MEDS: LACTOBACILLUS ACIDOPHILUS (PROBIOTIC) CAPSULE PO SCH (09:07)
[2022-03-24] MEDS: KCL 20 MEQ TAB (K-DUR) PO SCH ×2 (09:07→18:00)
[2022-03-24] MEDS: DOCUSATE SODIUM 100 MG (COLACE) CAP PO SCH ×2 (09:07→09:22)
[2022-03-24] MEDS: SACUBITRIL/VALSARTAN 24/26 MG (ENTRESTO) TABLET PO SCH (09:07)
[2022-03-24] MEDS: PREGABALIN 100 MG (LYRICA) CAPSULE PO SCH (09:08)
[2022-03-24] MEDS: ESTRADIOL 1 MG TAB (ESTRACE) PO SCH (09:08)
[2022-03-24] MEDS: VITAMIN D3 25 MCG (1,000 UNITS) TABLET PO SCH (09:09)
[2022-03-24] MEDS: meTOproloL SUCCINATE 50 MG (TOPROL XL) TAB PO SCH (09:09)
[2022-03-24] MEDS: SENNOSIDES 8.6 MG (SENOKOT) TAB PO SCH ×2 (09:10→09:22)
[2022-03-24] MEDS: guaiFENesin (MUCINEX) 600 MG TAB PO SCH (09:10)
[2022-03-24] MEDS: PANTOPRAZOLE 40 MG (PROTONIX) TAB PO SCH (09:10)
--- NOTE | 2022-03-24 09:39 | Physician Query Clarification ---
Physician Query-General Query to Physician: The medical record reflects the following clinical scenario: History/Risk factors: Transfer from rehab after treatment for influenza induced debility, "immunosuppressive state" "Covid pneumonia" Clinical Findings: Admission VS/Labs: HR 97, RR 16 increased to 20's to 30's, BP 95/63, SpO2 94% sat on 4L T 37.1 increased to 38.0 WBC 9.9, Lactic acid 1.19 Per HPI on the H and P: "started running a 104 fever prompting septic work-up which revealed COVID swab positive with bacterial pneumonia on chest x-ray and sepsis with elevated lactic acid. She was moved to the ICU." Treatment: On day of admission: I L Normal Saline, Vancomycin IV, Cefepime IV Question: Is Sepsis a clinically valid diagnosis and present on admission? Sepsis was documented in the HPI on the H and P (not listed under assessment and plan) with only one other mention of Sepsis on 03/24 in the subjective portion of the attending notes in the medical record. Of note sepsis was documented by both Dr. Yolanda Sheaprd and Dr. Nya Hendrickson. If yes, please document in the Progress Notes and Discharge Summary. 1. Yes, Sepsis is clinically valid and was present on admission, condition resolving 2. No, Sepsis ruled out 3. Other, with explanation of clinical findings 4. Undetermined, no explanation for clinical findings In responding to this query, please exercise your independent professional judgment. The purpose of this communication is to more accurately reflect the complexity of your patients condition. The fact that a question is asked does not imply that any particular answer is desired or expected. Thank you for your timely response to this clarification. Mariah Jackson MSN, RN Clinical Piece Dye Worker [email or web address] PHYSICIAN RESPONSE: Based on the clinical findings in the record, please respond to the query above on this document as an addendum. Physician Response: Physician Response sepsis only with volume overload and liver shock causing elevated lactic acid If you have questions please contact: Assemblyman [employer] Woman: Ext: Thank you for your time and cooperation. Clinical Piece Dye Worker/Assemblyman Or Woman This is a permanent part of the medical record MARIAH JACKSON Mar 24, 2022 09:39 YOSELIN GUTIERREZ DO Mar 24, 2022 12:49
[2022-03-24] MEDS: NS IV 1000 ML 1,000 ML IV SCH (09:50)
--- NOTE | 2022-03-24 09:58 | Progress Note ---
[facility] 03[facility] 0958: Subjective Date Seen by a Provider: Mar 24, 2022 Time Seen by a Provider: 09:40 Subjective/Events-last exam This is a 76-year-old female of Dr. Snyder's with PMH of interstitial lung disease who Dr. Turner admitted to inpatient rehab 03/21 following influenza induced debility but started running a 104 fever prompting septic work-up which revealed COVID swab positive with bacterial pneumonia on chest x-ray and sepsis with elevated lactic acid. She was moved to the ICU. Today she is having some trouble catching her breath today on vapotherm with O2 sats in the 80s and HR 140s so she is moved back on to BiPAP and Precedex. Her urine output is sufficient, she has not had a BM and is passing gas. She is doing well with eating. Review of Systems General: No Chills, No Night Sweats HEENT: No Head Aches, No Visual Changes Pulmonary: Dyspnea Cardiovascular: No: Chest Pain, Palpitations Gastrointestinal: No: Nausea, Vomiting Genitourinary: No Dysuria, No Frequency Neurological: No: Weakness, Numbness Focused Exam Lactate Level 03/22/22 08:41: Lactic Acid Level 1.19 Objective Exam Last Set of Vital Signs Vital Signs Date Time Temp Pulse Resp B/P (MAP) Pulse Ox O2 Delivery O2 Flow Rate FiO2 03/24/22 09:44 NIV Bilevel 65.00 03/24/22 09:17 106 141/99 (113) 95 03/24/22 09:00 29 03/24/22 08:00 36.0 03/24/22 07:36 90 Capillary Refill : I&O Intake and Output 03/24/22 00:00 Intake Total 500 ml Output Total 1050 ml Balance -550 ml Intake Oral 500 ml Output Urine Total 1050 ml # Bowel Movements 1 General: Alert, Oriented X3, Cooperative, Mild Distress HEENT: PERRLA, EOMI Neck: No JVD Lungs: Other (bibasilar crackles) Heart: Normal S1, Normal S2 Abdomen: Normal Bowel Sounds, Soft, No Tenderness Extremities: Normal Pulses Skin: No Significant Lesion Neuro: Normal Speech Psych/Mental Status: Mental Status NL, Mood NL Results Lab Laboratory Tests 03/23/22 10:54: Glucometer 119H 03/23/22 12:09: Blood Gas Puncture Site RT RAD, Blood Gas Patient Temperature 37.1, Arterial Blood pH 7.45H, Arterial Blood Partial Pressure CO2 35, Arterial Blood Partial Pressure O2 94H, Arterial Blood HCO3 24, Arterial Blood Total CO2 24.7, Arterial Blood Oxygen Saturation 98, Arterial Blood Base Excess 0.0, Beto Test NA, Blood Gas Ventilator Setting NO, Blood Gas Inspired Oxygen 65% 03/23/22 15:21: Glucometer 144H 03/23/22 20:52: Glucometer 137H 03/24/22 03:45: White Blood Count 7.5, Red Blood Count 3.18L, Hemoglobin 10.6L, Hematocrit 32L, Mean Corpuscular Volume 101H, Mean Corpuscular Hemoglobin 33, Mean Corpuscular Hemoglobin Concent 33, Red Cell Distribution Width 14.3, Platelet Count 184, Mean Platelet Volume 11.3, Immature Granulocyte % (Auto) 1, Neutrophils (%) (Auto) 86H, Lymphocytes (%) (Auto) 9L, Monocytes (%) (Auto) 4, Eosinophils (%) (Auto) 0, Basophils (%) (Auto) 0, Neutrophils # (Auto) 6.4, Lymphocytes # (Auto) 0.7L, Monocytes # (Auto) 0.3, Eosinophils # (Auto) 0.0, Basophils # (Auto) 0.0, Immature Granulocyte # (Auto) 0.1, Sodium Level 137, Potassium Level 4.2, Chloride Level 107, Carbon Dioxide Level 21, Anion Gap 9, Blood Urea Nitrogen 15, Creatinine 0.72, Estimat Glomerular Filtration Rate 86, BUN/Creatinine Ratio 21, Glucose Level 123H, Calcium Level 8.2L, Corrected Calcium 9.4, Total Bilirubin 0.8, Aspartate Amino Transf (AST/SGOT) 69H, Alanine Aminotransferase (ALT/SGPT) 91H, Alkaline Phosphatase 54, Total Protein 5.4L, Albumin 2.5L 03/24/22 05:10: Blood Gas Puncture Site LEFT RADIAL, Blood Gas Patient Temperature 37, Arterial Blood pH 7.39, Arterial Blood Partial Pressure CO2 36, Arterial Blood Partial Pressure O2 109H, Arterial Blood HCO3 21L, Arterial Blood Total CO2 22.2, Ar terial Blood Oxygen Saturation 99, Arterial Blood Base Excess -3.0L, Beto Test YES-POS, Blood Gas Ventilator Setting NO, Blood Gas Inspired Oxygen N Assessment/Plan Assessment/Plan Assess & Plan/Chief Complaint Assessment: Acute on chronic respiratory failure Bacterial pneumonia COVID infection Flu A Interstitial lung disease Immunosuppressed Chronic O2 dependence 4L/min CHF/cardiomyopathy DM Adrenal insufficiency Plan: On BiPAP d/t falling O2 sats on Vapotherm Precedex as needed PICC line in place COVID protocol IV antibiotics Decadron Hold home medication immunosuppressive's Poor prognosis LETHA TURNER DO 03/25/22 0542: Supervisory-Addendum Brief Verification & Attestation Participated in pt care: history, MDM, physical Personally performed: exam, history, MDM, supervision of care Care discussed with: Medical Student Procedures: n/a Results interpretation: Verified all documentation Verification and Attestation of Medical Student E/M Service A medical student performed and documented this service in my presence. I reviewed and verified all information documented by the medical student and made modifications to such information, when appropriate. I personally performed the physical exam and medical decision making. Letha Turner Mar 25, 2022,05:42 DARÍO VASQUEZ Mar 24, 2022 09:58 LETHA TURNER DO Mar 25, 2022 05:42
--- NOTE | 2022-03-24 10:17 | Diagnostic Imaging Report ---
HISTORY: Pneumonia, Covid positive. COMPARISON: 03/22/2022 TECHNIQUE: Frontal view of the chest. FINDINGS: There is extensive airspace consolidation throughout the lungs bilaterally, left greater than right. These have increased since the prior exam. There is no large effusion or pneumothorax. The cardiac silhouette is normal in size. The right PICC line tip projects over the right atrium, about 4.5 cm below the superior cavoatrial junction. IMPRESSION: 1. Marked airspace opacities bilaterally, consistent with history of pneumonia, and increased since 03/22/2022. 2. The right PICC line tip projects over the right atrium. Dictated by: Dictated on workstation # [id number]
--- NOTE | 2022-03-24 10:30 | Progress Note - Cardiology ---
Cardiology SOAP Progress Note Subjective: Currently on Bi-pap Remains SOB No c/o CP Objective: I&O/Vital Signs 03/23/22 03/23/22 03/23/22 03/24/22 23:00 23:02 23:59 00:00 Pulse 55 54 48 Resp 27 B/P (MAP) 152/73 (99) 156/71 (99) Pulse Ox 96 95 97 O2 Delivery NIV Bilevel NIV Bilevel NIV Bilevel O2 Flow Rate 55.00 55.00 55.00 FiO2 55 03/24/22 03/24/22 03/24/22 03/24/22 00:04 01:00 01:00 02:00 Temp 36.1 Pulse 62 62 62 B/P (MAP) 170/86 (114) 163/81 (108) Pulse Ox 96 95 O2 Delivery NIV Bilevel NIV Bilevel O2 Flow Rate 55.00 55.00 03/24/22 03/24/22 03/24/22 03/24/22 03:00 04:00 04:00 05:00 Pulse 58 46 46 Resp 24 27 B/P (MAP) 169/90 (116) 156/73 (100) 153/71 (98) Pulse Ox 96 94 93 O2 Delivery NIV Bilevel NIV Bilevel NIV Bilevel NIV Bilevel O2 Flow Rate 55.00 55.00 55.00 FiO2 55 03/24/22 03/24/22 03/24/22 03/24/22 05:23 06:00 07:00 07:28 Pulse 101 47 44 Resp 21 26 B/P (MAP) 155/80 (105) 149/86 (107) Pulse Ox 94 95 93 O2 Delivery Vapotherm NIV Bilevel Vapotherm O2 Flow Rate 40.00 55.00 40.00 100.00 FiO2 90 03/24/22 03/24/22 03/24/22 03/24/22 07:36 08:00 08:00 09:00 Temp 36.0 Pulse 58 68 Resp 40 29 B/P (MAP) 145/75 (98) 105/88 (94) Pulse Ox 91 92 86 O2 Delivery Vapotherm Vapotherm Vapotherm O2 Flow Rate 40.00 40.00 40.00 100.00 100.00 FiO2 90 03/24/22 03/24/22 03/24/22 03/24/22 09:13 09:17 09:35 09:44 Pulse 65 106 B/P (MAP) 141/99 (113) Pulse Ox 93 95 O2 Delivery Vapotherm Vapotherm NIV Bilevel NIV Bilevel O2 Flow Rate 40.00 40.00 55.00 65.00 100.00 100.00 03/24/22 00:00 Intake Total 50 ml Output Total 575 ml Balance -525 ml Weight (Pounds): 140 Weight (Ounces): 0.0 Weight (Calculated Kilograms): 63.146777 Constitutional: AAO x 3, well-developed, well-nourished Respiratory: No accessory muscle use; chest is bilaterally symmetric, other (diminished air entry at the bases; coarse breath sounds throughout; freq non-pr od cough) Cardiovascular: irregularly irregular, S1 and S2, systolic murmur (soft GARRETT at card base) Gastrointestional: No tender; soft; No guarding, No rebound; audible bowel sounds Extremities: No clubbing, No cyanosis, No significant edema Neurologic/Psychiatric: oriented x 3, other (moves all limbs equally) Skin: No rash on exposed areas, No ulcerations on exposed areas Results/Procedures: Labs Laboratory Tests 03/23/22 10:54: Glucometer 119H 03/23/22 12:09: Blood Gas Puncture Site RT RAD, Blood Gas Patient Temperature 37.1, Arterial Blood pH 7.45H, Arterial Blood Partial Pressure CO2 35, Arterial Blood Partial Pressure O2 94H, Arterial Blood HCO3 24, Arterial Blood Total CO2 24.7, Arterial Blood Oxygen Saturation 98, Arterial Blood Base Excess 0.0, Beto Test NA, Blood Gas Ventilator Setting NO, Blood Gas Inspired Oxygen 65% 03/23/22 15:21: Glucometer 144H 03/23/22 20:52: Glucometer 137H 03/24/22 03:45: White Blood Count 7.5, Red Blood Count 3.18L, Hemoglobin 10.6L, Hematocrit 32L, Mean Corpuscular Volume 101H, Mean Corpuscular Hemoglobin 33, Mean Corpuscular Hemoglobin Concent 33, Red Cell Distribution Width 14.3, Platelet Count 184, Mean Platelet Volume 11.3, Immature Granulocyte % (Auto) 1, Neutrophils (%) (Auto) 86H, Lymphocytes (%) (Auto) 9L, Monocytes (%) (Auto) 4, Eosinophils (%) (Auto) 0, Basophils (%) (Auto) 0, Neutrophils # (Auto) 6.4, Lymphocytes # (Auto) 0.7L, Monocytes # (Auto) 0.3, Eosinophils # (Auto) 0.0, Basophils # (Auto) 0.0, Immature Granulocyte # (Auto) 0.1, Sodium Level 137, Potassium Level 4.2, Chl oride Level 107, Carbon Dioxide Level 21, Anion Gap 9, Blood Urea Nitrogen 15, Creatinine 0.72, Estimat Glomerular Filtration Rate 86, BUN/Creatinine Ratio 21, Glucose Level 123H, Calcium Level 8.2L, Corrected Calcium 9.4, Total Bilirubin 0.8, Aspartate Amino Transf (AST/SGOT) 69H, Alanine Aminotransferase (ALT/SGPT) 91H, Alkaline Phosphatase 54, Total Protein 5.4L, Albumin 2.5L 03/24/22 05:10: Blood Gas Puncture Site LEFT RADIAL, Blood Gas Patient Temperature 37, Arterial Blood pH 7.39, Arterial Blood Partial Pressure CO2 36, Arterial Blood Partial Pressure O2 109H, Arterial Blood HCO3 21L, Arterial Blood Total CO2 22.2, Ar terial Blood Oxygen Saturation 99, Arterial Blood Base Excess -3.0L, Beto Test YES-POS, Blood Gas Ventilator Setting NO, Blood Gas Inspired Oxygen N Laboratory Tests 03/23/22 04:00 03/24/22 03:45 Procedures NAME: [facility] REC#: [id number] PT STATUS: ADM IN : 1945 PHYSICIAN: MARY KATE WEBB MD ADMIT DATE: 03/21/22/ICU Draft Date of Exam:03/24/22 CHEST 1 VIEW, AP/PA ONLY HISTORY: Pneumonia, Covid positive. COMPARISON: 03/22/2022 TECHNIQUE: Frontal view of the chest. FINDINGS: There is extensive airspace consolidation throughout the lungs bilaterally, left greater than right. These have increased since the prior exam. There is no large effusion or pneumothorax. The cardiac silhouette is normal in size. The right PICC line tip projects over the right atrium, about 4.5 cm below the superior cavoatrial junction. IMPRESSION: 1. Marked airspace opacities bilaterally, consistent with history of pneumonia, and increased since 03/22/2022. 2. The right PICC line tip projects over the right atrium. Dictated on workstation # [id number] Dict: 03/24/22 1010 Trans: 03/24/[address] [place] [phone] Interpreted by: JOMAR LEON MD Electronically signed by: A/P: Assessment: Ac resp failure to Covid pneumonia and sepsis (worsening status) - managed by Dr Turner Cardiac rhythm since 03/19/22: sinus, sinus tach, PACs, wandering atrial pacemaker, MAT - no A fib recorded on the ECG and tele strips in the last several days Pulm hypertension of undetermined etiology - see echo report below Hypokalemia - resolved H/o cardiomyopathy (Dr Rivas director women in [place], [place]) but none seen on the echo of 03/22/22 - echo on 03/22/22: LVEF 60-65%, PASP 70-75 mmHg Plan: * Management of pneumonia is per medical services/eICU * On the strips and ECGs available to us since her hosp of 03/19/22, no A Fib is seen. Continue to monitor on Tele * Monitor labs * Further recs based on hosp course BELÉN MIN Mar 24, 2022 10:30
[2022-03-24] MEDS ORDERED: FUROSEMIDE 40 MG/4 ML INJ (LASIX) ONE (12:02)
[2022-03-24] MEDS: VANCOMYCIN 1 GM/NS 250 ML IVPB IV SCH ×2 (12:12)
[2022-03-24] MEDS ORDERED: FUROSEMIDE 40 MG/4 ML INJ (LASIX) IVP ONE (12:15)
--- NOTE | 2022-03-24 12:48 | Tele-ICU Progress Note ---
Subjective Date Seen by a Provider: Mar 24, 2022 Time Seen by a Provider: 12:43 Subjective/Events-last exam (Tele-ICU Physician , consultation) Available chart/ vitals / labs / Images reviewed H&P is from ER notes Patient's information available about PMH, allergy reviewed in EMR. ROS as per chart and RN report Video assessment done using teleICU camera, rest of exam as per RN Discussed with RN. Patient earlier today was on a nasal cannula and tolerating well but later she developed respiratory distress requiring to put back on a AVAPS ventilation and Precedex drip restarted. A chest x-ray done today shows worsening infiltrate and there is a concern for some fluid overload. Hence I have ordered Lasix IV to see how she does. She is afebrile. She is still tachycardic on and off. Impression 1. Acute COVID19 pneumonia 2. Influenza A infection 3. Superadded bacterial pneumonia cannot be ruled out 4. Possible underlying idiopathic pulmonary fibrosis 5. Severe pulmonary hypertension most likely due to underlying pulmonary fibrosis. 6. Multifocal atrial tachycardia due to lung disease. 7. Acute hypoxic respiratory failure Recommendations 1. We will continue antibiotic therapy per primary care 2. Continue AVAPS ventilation a 3. Keep her comfortable with the Precedex drip 4. Tachycardia poor cardiology. 5. DVT prophylaxis and ulcer prophylaxis. 6. lasix 20 mg ivp X1 Sepsis Event Evaluation Height, Weight, BMI Height: 5'1.50" Weight: 140lbs. 0.0oz. 63.958883zx; 29.88 BMI Method:Stated Focused Exam Lactate Level 03/22/22 08:41: Lactic Acid Level 1.19 Exam Exam Patient acknowledged, consented, and participated in this virtual visit which was conducted using real time audio/video Vital Signs Date Time Temp Pulse Resp B/P (MAP) Pulse Ox O2 Delivery O2 Flow Rate FiO2 03/24/22 12:24 35.3 03/24/22 12:14 112 125/54 03/24/22 11:49 35.6 03/24/22 09:44 NIV Bilevel 65.00 03/24/22 09:35 NIV Bilevel 55.00 03/24/22 09:17 106 141/99 (113) 95 Vapotherm 40.00 100.00 03/24/22 09:13 65 93 Vapotherm 40.00 100.00 03/24/22 09:00 68 29 105/88 (94) 86 Vapotherm 40.00 100.00 03/24/22 08:00 36.0 03/24/22 08:00 58 40 145/75 (98) 92 Vapotherm 40.00 100.00 03/24/22 07:36 91 Vapotherm 40.00 90 03/24/22 07:28 44 03/24/22 07:00 47 26 149/86 (107) 93 Vapotherm 40.00 100.00 03/24/22 06:00 101 21 155/80 (105) 95 NIV Bilevel 55.00 03/24/22 05:23 94 Vapotherm 40.00 90 03/24/22 05:00 46 27 153/71 (98) 93 NIV Bilevel 55.00 03/24/22 04:00 NIV Bilevel 55 03/24/22 04:00 46 24 156/73 (100) 94 NIV Bilevel 55.00 03/24/22 03:00 58 169/90 (116) 96 NIV Bilevel 55.00 03/24/22 02:00 62 163/81 (108) 95 NIV Bilevel 55.00 03/24/22 01:00 62 170/86 (114) 96 NIV Bilevel 55.00 03/24/22 01:00 62 03/24/22 00:04 36.1 03/24/22 00:00 48 156/71 (99) 97 NIV Bilevel 55.00 03/23/22 23:59 NIV Bilevel 55 03/23/22 23:02 54 27 95 55.00 03/23/22 23:00 55 152/73 (99) 96 NIV Bilevel 55.00 03/23/22 22:00 49 27 154/77 (102) 97 NIV Bilevel 55.00 03/23/22 21:00 88 155/72 (99) 95 NIV Bilevel 55.00 03/23/22 20:00 NIV Bilevel 55 03/23/22 20:00 52 157/78 (104) 97 NIV Bilevel 55.00 03/23/22 19:15 55 37 96 55.00 03/23/22 19:00 36.0 55.00 03/23/22 19:00 57 37 160/81 (107) 98 NIV Bilevel 55.00 03/23/22 19:00 57 03/23/22 18:00 58 27 148/75 (99) 95 NIV Bilevel 65.00 03/23/22 17:00 57 27 149/73 (98) 98 NIV Bilevel 65.00 03/23/22 16:00 NIV Bilevel 55 03/23/22 16:00 62 29 144/73 (96) 96 NIV Bilevel 65.00 03/23/22 15:48 36.0 03/23/22 15:24 65 30 96 55.00 03/23/22 15:22 75 03/23/22 15:00 61 29 144/72 (96) 98 NIV Bilevel 65.00 03/23/22 14:00 69 33 136/72 (93) 98 NIV Bilevel 65.00 03/23/22 13:00 75 29 132/78 (96) 98 NIV Bilevel 65.00 03/23/22 12:59 75 I & O 03/24/22 06:59 Intake Total 200 ml Output Total 1075 ml Balance -875 ml Height & Weight Height: 5'1.50" Weight: 140lbs. 0.0oz. 63.814288tb; 29.88 BMI Method:Stated General Appearance: WD/WN, Anxious, Chronically ill, Mild Distress HEENT: PERRL/EOMI, Normal ENT Inspection, Pharynx Normal Neck: Full Range of Motion, Normal Inspection, Non Tender, Supple, Carotid Bruit Respiratory: Chest Non Tender, No Respiratory Distress, Accessory Muscle Use, Decreased Breath Sounds, Wheezing Cardiovascular: Regular Rate, Rhythm, No Edema, No Gallop, No JVD, No Murmur, Normal Peripheral Pulses Extremity: Normal Capillary Refill, Normal Inspection, Normal Range of Motion, Non Tender, No Calf Tenderness, No Pedal Edema Neurologic/Psychiatric: Alert, Oriented x3, loss prevention leader II-XII Norm as Tested, Depressed Affect, Motor Weakness Skin: Normal Color, Warm/Dry Lymphatic: No Adenopathy Results Lab Laboratory Tests 03/23/22 04:00 03/24/22 03:45 Assessment/Plan Assessment/Plan as above Critical Care: Critically Ill Patient Time spent with patient (mins): 25 MARY KATE WEBB MD Mar 24, 2022 12:48
[2022-03-24 14:28] VITALS: BP 119/72
[2022-03-24] MEDS: DexMEDEtomidine 250 ML DRIP 250 ML IV SCH (14:51)
--- NOTE | 2022-03-24 16:06 | Progress Note - Cardiology ---
Cardiology SOAP Progress Note Subjective: Worsening of breathing Currently on BiPAP and unable to come off it No cp or palp or syncope Gen malaise and weakness No focal weakness No n/v/d Objective: I&O/Vital Signs 03/24/22 03/24/22 03/24/22 03/24/22 05:00 05:23 06:00 07:00 Pulse 46 101 47 Resp 27 21 26 B/P (MAP) 153/71 (98) 155/80 (105) 149/86 (107) Pulse Ox 93 94 95 93 O2 Delivery NIV Bilevel Vapotherm NIV Bilevel Vapotherm O2 Flow Rate 55.00 40.00 55.00 40.00 100.00 FiO2 90 03/24/22 03/24/22 03/24/22 03/24/22 07:28 07:36 08:00 08:00 Pulse 44 58 Resp 40 B/P (MAP) 145/75 (98) Pulse Ox 91 92 O2 Delivery Vapotherm Vapotherm Vapotherm O2 Flow Rate 40.00 40.00 100.00 FiO2 90 100 03/24/22 03/24/22 03/24/22 03/24/22 08:00 09:00 09:13 09:17 Temp 36.0 Pulse 68 65 106 Resp 29 B/P (MAP) 105/88 (94) 141/99 (113) Pulse Ox 86 93 95 O2 Delivery Vapotherm Vapotherm Vapotherm O2 Flow Rate 40.00 40.00 40.00 100.00 100.00 100.00 03/24/22 03/24/22 03/24/22 03/24/22 09:35 09:44 10:00 11:00 Pulse 101 73 Resp 24 28 B/P (MAP) 132/70 (90) 131/61 (84) Pulse Ox 91 95 O2 Delivery NIV Bilevel NIV Bilevel NIV Bilevel NIV Bilevel O2 Flow Rate 55.00 65.00 65.00 65.00 03/24/22 03/24/22 03/24/22 03/24/22 11:49 12:00 12:00 12:14 Temp 35.6 Pulse 52 112 Resp 28 B/P (MAP) 125/54 (77) 125/54 Pulse Ox 93 97 O2 Delivery NIV Bilevel NIV Bilevel O2 Flow Rate 65.00 FiO2 65 12/6/22 03/24/22 03/24/22 03/24/22 12:24 13:00 13:27 14:00 Temp 35.3 Pulse 56 62 64 Resp 30 23 B/P (MAP) 139/79 (99) 143/80 (101) Pulse Ox 91 96 O2 Delivery NIV Bilevel NIV Bilevel O2 Flow Rate 65.00 65.00 03/24/22 03/24/22 03/24/22 03/24/22 14:28 14:51 15:00 15:56 Temp 36.0 Pulse 80 126 73 Resp 46 32 B/P (MAP) 131/65 137/67 (90) Pulse Ox 88 94 O2 Delivery NIV Bilevel O2 Flow Rate 65.00 65.00 03/24/22 00:00 Intake Total 50 ml Output Total 575 ml Balance -525 ml Weight (Pounds): 140 Weight (Ounces): 0.0 Weight (Calculated Kilograms): 63.660346 Constitutional: AAO x 3, well-developed, well-nourished Respiratory: No accessory muscle use; chest is bilaterally symmetric, other (diminished air entry at the bases; coarse breath sounds throughout; freq non- prod cough) Cardiovascular: irregularly irregular, S1 and S2, systolic murmur (soft GARRETT at card base) Gastrointestional: No tender; soft; No guarding, No rebound; audible bowel sounds Extremities: No clubbing, No cyanosis, No significant edema Neurologic/Psychiatric: oriented x 3, other (moves all limbs equally) Skin: No rash on exposed areas, No ulcerations on exposed areas Results/Procedures: Labs Laboratory Tests 03/23/22 20:52: Glucometer 137H 03/24/22 03:45: White Blood Count 7.5, Red Blood Count 3.18L, Hemoglobin 10.6L, Hematocrit 32L, Mean Corpuscular Volume 101H, Mean Corpuscular Hemoglobin 33, Mean Corpuscular Hemoglobin Concent 33, Red Cell Distribution Width 14.3, Platelet Count 184, Mean Platelet Volume 11.3, Immature Granulocyte % (Auto) 1, Neutrophils (%) (Auto) 86H, Lymphocytes (%) (Auto) 9L, Monocytes (%) (Auto) 4, Eosinophils (%) (Auto) 0, Basophils (%) (Auto) 0, Neutrophils # (Auto) 6.4, Lymphocytes # (Auto) 0.7L, Monocytes # (Auto) 0.3, Eosinophils # (Auto) 0.0, Basophils # (Auto) 0.0, Immature Granulocyte # (Auto) 0.1, Sodium Level 137, Potassium Level 4.2, Chloride Level 107, Carbon Dioxide Level 21, Anion Gap 9, Blood Urea Nitrogen 15, Creatinine 0.72, Estimat Glomerular Filtration Rate 86, BUN/Creatinine Ratio 21, Glucose Level 123H, Calcium Level 8.2L, Corrected Calcium 9.4, Total Bilirubin 0.8, Aspartate Amino Transf (AST/SGOT) 69H, Alanine Aminotransferase (ALT/SGPT) 91H, Alkaline Phosphatase 54, Total Protein 5.4L, Albumin 2.5L 03/24/22 05:10: Blood Gas Puncture Site LEFT RADIAL, Blood Gas Patient Temperature 37, Arterial Blood pH 7.39, Arterial Blood Partial Pressure CO2 36, Arterial Blood Partial Pressure O2 109H, Arterial Blood HCO3 21L, Arterial Blood Total CO2 22.2, Arterial Blood Oxygen Saturation 99, Arterial Blood Base Excess -3.0L, Beto Test YES-POS, Blood Gas Ventilator Setting NO, Blood Gas Inspired Oxygen N 03/24/22 11:36: Glucometer 124H 03/24/22 15:34: Glucometer 138H Laboratory Tests 03/23/22 04:00 03/24/22 03:45 A/P: Assessment: Ac resp failure to Covid pneumonia and sepsis (worsening status) - managed by Dr Turner Cardiac rhythm since 03/19/22: sinus, sinus tach, PACs, wandering atrial pacemaker, MAT - no A fib recorded on the ECG and tele strips in the last several days Pulm hypertension of undetermined etiology - see echo report below Hypokalemia - resolved H/o cardiomyopathy (Dr Rivas rn outpatient surgery in [place], [place]) but none seen on the echo of 03/22/22 - echo on 03/22/22: LVEF 60-65%, PASP 70-75 mmHg Plan: * Worsening course * Management of pneumonia is per medical services/eICU * Continue to monitor on Tele * Monitor labs BECKY PARIS MD [facility] Mar 24, 2022 16:06
[2022-03-24] MEDS ORDERED: CEFEPIME 1,000 MG/NS 50 ML IVPB IV SCH ×2 (17:00)
[2022-03-24 18:30] VITALS: BP 112/97
[2022-03-24] MEDS ORDERED: SCOPOLAMINE 1.5 MG (TRANSDERM-SCOP) PATCH TOP SCH (20:00)
[2022-03-24] MEDS ORDERED: LORazepam 1 MG (ATIVAN) TAB SL PRN (20:00)
[2022-03-24] MEDS ORDERED: ATROPINE 1% OPHTHALMIC SOLN 2 ML SL PRN (20:00)
[2022-03-24] MEDS ORDERED: PROMETHAZINE INJ 25 MG/ML (PHENERGAN) AMP IVP PRN (20:00)
[2022-03-24] MEDS ORDERED: BISACODYL 10 MG SUPP (DULCOLAX) PR PRN (20:00)
[2022-03-24] MEDS ORDERED: ARTIFICAL TEARS 0.4 ML UNIT DOSE (REFRESH PLUS) OU PRN (20:00)
[2022-03-24] MEDS ORDERED: ACETAMINOPHEN 650 MG SUPP (TYLENOL) PR PRN (20:00)
[2022-03-24] MEDS ORDERED: RT-ALBUTEROL/IPRATROPIUM 3 ML (DUONEB) VIAL INH PRN (20:00)
[2022-03-24] MEDS ORDERED: ONDANSETRON 4 MG/2 ML (SDV) Z0FRAN IVP PRN (20:00)
[2022-03-24] MEDS ORDERED: SALIVA SUBSTITUTE 60 ML SPRAY(MOUTHKOTE) MM PRN (20:00)
[2022-03-24] MEDS ORDERED: GLYCOPYRROLATE 0.2 MG/ML (ROBINUL) 2 ML VIAL IV PRN (20:00)
[2022-03-24] MEDS ORDERED: HYDROmorphone 2 MG/ML VIAL (DILAUDID) IV PRN ×2 (20:45→22:00)
[2022-03-24] MEDS ORDERED: HYDROmorphone 2 MG/ML VIAL (DILAUDID) ONE (21:54)
--- NOTE | 2022-03-25 05:12 | Discharge Summary ---
Diagnosis/Chief Complaint Date of Admission Mar 21, 2022 at 12:30 Date of Discharge Mar 25, 2022 at 00:30 Discharge Diagnosis Assessment: Acute on chronic respiratory failure Bacterial pneumonia COVID infection Flu A Interstitial lung disease Immunosuppressed Chronic O2 dependence 4L/min CHF/cardiomyopathy DM Adrenal insufficiency Plan: On BiPAP d/t falling O2 sats on Vapotherm Precedex as needed PICC line in place COVID protocol IV antibiotics Decadron Hold home medication immunosuppressive's Poor prognosis Discharge Summary Discharge Physical Examination Allergies: Coded Allergies: metoclopramide (Verified Allergy, Mild, 08/08/12) erythromycin base (Verified Allergy, Unknown, 08/08/12) morphine (Verified Allergy, Unknown, pt has rec Lortab & Hydromorphone in the past, 03/20/22) Vitals & I&Os Vital Signs Date Time Temp Pulse Resp B/P (MAP) Pulse Ox O2 Delivery O2 Flow Rate FiO2 03/24/22 20:00 96 NIV Bilevel 65 03/24/22 18:30 80 26 55.00 03/24/22 18:00 157/90 (112) 03/24/22 15:56 36.0 Hospital Course Was the Problem List Reviewed?: Yes Long course after transferred from ARU to 4th floor with COVID infection and bacterial PNA. Patient continued to decline requiring transfer to [facility] then ICU and became biPAP dependent along with Vapotherm. Patient continued to decline and she insisted on remaining full code and intubation but after multiple conversations she changed her mind to DNR and DNI and then declined further and then changed to comfort care and then . Labs (last 24 hrs) Laboratory Tests 03/21/22 13:42: Blood Gas Puncture Site RIGHT RADIAL, Blood Gas Patient Temperature 37, Arterial Blood pH 7.49H, Arterial Blood Partial Pressure CO2 32L, Arterial Blood Partial Pressure O2 46L, Arterial Blood HCO3 25, Arterial Blood Total CO2 25.5, Arterial Blood Oxygen Saturation 86L, Arterial Blood Base Excess 1.4, Beto Test POSITIVE, Blood Gas Ventilator Setting NO, Blood Gas Inspired Oxygen 4 L 03/21/22 16:34: Glucometer 187H 03/21/22 20:18: Glucometer 142H 03/22/22 05:15: Blood Gas Puncture Site RIGHT RADIAL, Blood Gas Patient Temperature 36.9, Arterial Blood pH 7.47H, Arterial Blood Partial Pressure CO2 34L, Arterial Blood Partial Pressure O2 79, Arterial Blood HCO3 25, Arterial Blood Total CO2 25.7, Arterial Blood Oxygen Saturation 98, Arterial Blood Base Excess 1.3, Beto Test YES-POS, Blood Gas Ventilator Setting NO, Blood Gas Inspired Oxygen NA 03/22/22 06:40: White Blood Count 9.9, Red Blood Count 3.65L, Hemoglobin 12.2, Hematocrit 37, Mean Corpuscular Volume 101H, Mean Corpuscular Hemoglobin 33, Mean Corpuscular Hemoglobin Concent 33, Red Cell Distribution Width 14.5, Platelet Count 169, Mean Platelet Volume 10.8, Immature Granulocyte % (Auto) 1, Neutrophils (%) (Auto) 81H, Lymphocytes (%) (Auto) 16, Monocytes (%) (Auto) 2, Eosinophils (%) (Auto) 0, Basophils (%) (Auto) 0, Neutrophils # (Auto) 8.0H, Lymphocytes # (Auto) 1.6, Monocytes # (Auto) 0.2, Eosinophils # (Auto) 0.0, Basophils # (Auto) 0.0, Immature Granulocyte # (Auto) 0.1, Sodium Level 135, Potassium Level 3.1L, Chloride Level 102, Carbon Dioxide Level 21, Anion Gap 12, Blood Urea Nitrogen 10, Creatinine 0.80, Estimat Glomerular Filtration Rate 75, BUN/Creatinine Ratio 13, Glucose Level 80, Calcium Level 8.4L, Corrected Calcium 9.3, Total Bilirubin 1.3H, Gamma Glutamyl Transpeptidase 1460H, Aspartate Amino Transf (AST/SGOT) 77H , Alanine Aminotransferase (ALT/SGPT) 166H, Alkaline Phosphatase 70, Total Protein 5.9L, Albumin 2.9L 03/22/22 08:41: Lactic Acid Level 1.19 03/22/22 11:26: Glucometer 164H 03/22/22 15:58: Glucometer 180H 03/22/22 20:06: Glucometer 129H 03/23/22 04:00: White Blood Count 7.7, Red Blood Count 3.15L, Hemoglobin 10.4L, Hematocrit 31L, Mean Corpuscular Volume 100H, Mean Corpuscular Hemoglobin 33, Mean Corpuscular Hemoglobin Concent 33, Red Cell Distribution Width 14.0, Platelet Count 129L, Mean Platelet Volume 12.0, Immature Granulocyte % (Auto) 1, Neutrophils (%) (A uto) 91H, Lymphocytes (%) (Auto) 5L, Monocytes (%) (Auto) 3, Eosinophils (%) (Auto) 0, Basophils (%) (Auto) 0, Neutrophils # (Auto) 7.0, Lymphocytes # (Auto) 0.4L, Monocytes # (Auto) 0.2, Eosinophils # (Auto) 0.0, Basophils # (Auto) 0.0, Immature Granulocyte # (Auto) 0.1, Percent Immature Platelet Fraction 8.5H, Sodium Level 132L, Potassium Level 3.6, Chloride Level 103, Carbon Dioxide Level 18L, Anion Gap 11, Blood Urea Nitrogen 10, Creatinine 0.66, Estimat Glomerular Filtration Rate 90, BUN/Creatinine Ratio 15, Glucose Level 113H, Calcium Level 8.1L, Corrected Calcium 9.3, Total Bilirubin 0.9, Aspartate Amino Transf (AST/SGOT) 48H, Alanine Aminotransferase (ALT/SGPT) 105H, Alkaline Phosphatase 63, Total Protein 5.2L, Albumin 2.5L, Smear Scan YES 03/23/22 09:20: Vancomycin Level Trough 5.6L 03/23/22 10:54: Glucometer 119H 03/23/22 12:09: Blood Gas Puncture Site RT RAD, Blood Gas Patient Temperature 37.1, Arterial Blood pH 7.45H, Arterial Blood Partial Pressure CO2 35, Arterial Blood Partial Pressure O2 94H, Arterial Blood HCO3 24, Arterial Blood Total CO2 24.7, Arterial Blood Oxygen Saturation 98, Arterial Blood Base Excess 0.0, Beto Test NA, Blood Gas Ventilator Setting NO, Blood Gas Inspired Oxygen 65% 03/23/22 15:21: Glucometer 144H 03/23/22 20:52: Glucometer 137H 03/24/22 03:45: White Blood Count 7.5, Red Blood Count 3.18L, Hemoglobin 10.6L, Hematocrit 32L, Mean Corpuscular Volume 101H, Mean Corpuscular Hemoglobin 33, Mean Corpuscular Hemoglobin Concent 33, Red Cell Distribution Width 14.3, Platelet Count 184, Mean Platelet Volume 11.3, Immature Granulocyte % (Auto) 1, Neutrophils (%) (Auto) 86H, Lymphocytes (%) (Auto) 9L, Monocytes (%) (Auto) 4, Eosinophils (%) (Auto) 0, Basophils (%) (Auto) 0, Neutrophils # (Auto) 6.4, Lymphocytes # (Auto) 0.7L, Monocytes # (Auto) 0.3, Eosinophils # (Auto) 0.0, Basophils # (Auto) 0.0, Immature Granulocyte # (Auto) 0.1, Sodium Level 137, Potassium Level 4.2, Chloride Level 107, Carbon Dioxide Level 21, Anion Gap 9, Blood Urea Nitrogen 15, Creatinine 0.72, Estimat Glomerular Filtration Rate 86, BUN/Creatinine Ratio 21, Glucose Level 123H, Calcium Level 8.2L, Corrected Calcium 9.4, Total Bilirubin 0.8, Aspartate Amino Transf (AST/SGOT) 69H, Alanine Aminotransferase (ALT/SGPT) 91H, Alkaline Phosphatase 54, Total Protein 5.4L, Albumin 2.5L 03/24/22 05:10: Blood Gas Puncture Site LEFT RADIAL, Blood Gas Patient Temperature 37, Arterial Blood pH 7.39, Arterial Blood Partial Pressure CO2 36, Arterial Blood Partial Pressure O2 109H, Arterial Blood HCO3 21L, Arterial Blood Total CO2 22.2, Arterial Blood Oxygen Saturation 99, Arterial Blood Base Excess -3.0L, Beto Test YES-POS, Blood Gas Ventilator Setting NO, Blood Gas Inspired Oxygen N 03/24/22 11:36: Glucometer 124H 03/24/22 15:34: Glucometer 138H Pending Labs Laboratory Tests 03/21/22 13:42: Blood Gas Puncture Site RIGHT RADIAL, Blood Gas Patient Temperature 37, Arterial Blood pH 7.49, Arterial Blood Partial Pressure CO2 32, Arterial Blood Partial Pressure O2 46, Arterial Blood HCO3 25, Arterial Blood Total CO2 25.5, Arterial Blood Oxygen Saturation 86, Arterial Blood Base Excess 1.4, Beto Test POSITIVE, Blood Gas Ventilator Setting NO, Blood Gas Inspired Oxygen 4 L 03/21/22 16:34: Glucometer 187 03/21/22 20:18: Glucometer 142 03/22/22 05:15: Blood Gas Puncture Site RIGHT RADIAL, Blood Gas Patient Temperature 36.9, Arterial Blood pH 7.47, Arterial Blood Partial Pressure CO2 34, Arterial Blood Partial Pressure O2 79, Arterial Blood HCO3 25, Arterial Blood Total CO2 25.7, Arterial Blood Oxygen Saturation 98, Arterial Blood Base Excess 1.3, Beto Test YES-POS, Blood Gas Ventilator Setting NO, Blood Gas Inspired Oxygen NA 03/22/22 06:40: White Blood Count 9.9, Red Blood Count 3.65, Hemoglobin 12.2, Hematocrit 37, Mean Corpuscular Volume 101, Mean Corpuscular Hemoglobin 33, Mean Corpuscular Hemoglobin Concent 33, Red Cell Distribution Width 14.5, Platelet Count 169, Mean Platelet Volume 10.8, Immature Granulocyte % (Auto) 1, Neutrophils (%) (Auto) 81, Lymphocytes (%) (Auto) 16, Monocytes (%) (Auto) 2, Eosinophils (%) (Auto) 0, Basophils (%) (Auto) 0, Neutrophils # (Auto) 8.0, Lymphocytes # (Auto) 1.6, Monocytes # (Auto) 0.2, Eosinophils # (Auto) 0.0, Basophils # (Auto) 0.0, Immature Granulocyte # (Auto) 0.1, Sodium Level 135, Potassium Level 3.1, Chloride Level 102, Carbon Dioxide Level 21, Anion Gap 12, Blood Urea Nitrogen 10, Creatinine 0.80, Estimat Glomerular Filtration Rate 75, BUN/Creatinine Ratio 13, Glucose Level 80, Calcium Level 8.4, Corrected Calcium 9.3, Total Bilirubin 1.3, Gamma Glutamyl Transpeptidase 1460, Aspartate Amino Transf (AST/SGOT) 77, Alanine Aminotransferase (ALT/SGPT) 166, Alkaline Phosphatase 70, Total Protein 5.9, Albumin 2.9 03/22/22 08:41: Lactic Acid Level 1.19 03/22/22 11:26: Glucometer 164 03/22/22 15:58: Glucometer 180 03/22/22 20:06: Glucometer 129 03/23/22 04:00: White Blood Count 7.7, Red Blood Count 3.15, Hemoglobin 10.4, Hematocrit 31, Mean Corpuscular Volume 100, Mean Corpuscular Hemoglobin 33, Mean Corpuscular Hemoglobin Concent 33, Red Cell Distribution Width 14.0, Platelet Count 129, Mean Platelet Volume 12.0, Immature Granulocyte % (Auto) 1, Neutrophils (%) (Auto) 91, Lymphocytes (%) (Auto) 5, Monocytes (%) (Auto) 3, Eosinophils (%) (Auto) 0, Basophils (%) (Auto) 0, Neutrophils # (Auto) 7.0, Lymphocytes # (Auto) 0.4, Monocytes # (Auto) 0.2, Eosinophils # (Auto) 0.0, Basophils # (Auto) 0.0, Immature Granulocyte # (Auto) 0.1, Percent Immature Platelet Fraction 8.5, Sodium Level 132, Potassium Level 3.6, Chloride Level 103, Carbon Dioxide Level 18, Anion Gap 11, Blood Urea Nitrogen 10, Creatinine 0.66, Estimat Glomerular Filtration Rate 90, BUN/Creatinine Ratio 15, Glucose Level 113, Calcium Level 8.1, Corrected Calcium 9.3, Total Bilirubin 0.9, Aspartate Amino Transf (AST/SGOT) 48, Alanine Aminotransferase (ALT/SGPT) 105, Alkaline Phosphatase 63, Total Protein 5.2, Albumin 2.5, Smear Scan YES 03/23/22 09:20: Vancomycin Level Trough 5.6 03/23/22 10:54: Glucometer 119 03/23/22 12:09: Blood Gas Puncture Site RT RAD, Blood Gas Patient Temperature 37.1, Arterial Blood pH 7.45, Arterial Blood Partial Pressure CO2 35, Arterial Blood Partial Pressure O2 94, Arterial Blood HCO3 24, Arterial Blood Total CO2 24.7, Arterial Blood Oxygen Saturation 98, Arterial Blood Base Excess 0.0, Beto Test NA, Blood Gas Ventilator Setting NO, Blood Gas Inspired Oxygen 65% 03/23/22 15:21: Glucometer 144 03/23/22 20:52: Glucometer 137 03/24/22 03:45: White Blood Count 7.5, Red Blood Count 3.18, Hemoglobin 10.6, Hematocrit 32, Mean Corpuscular Volume 101, Mean Corpuscular Hemoglobin 33, Mean Corpuscular Hemoglobin Concent 33, Red Cell Distribution Width 14.3, Platelet Count 184, Mean Platelet Volume 11.3, Immature Granulocyte % (Auto) 1, Neutrophils (%) (Auto) 86, Lymphocytes (%) (Auto) 9, Monocytes (%) (Auto) 4, Eosinophils (%) (Auto) 0, Basophils (%) (Auto) 0, Neutrophils # (Auto) 6.4, Lymphocytes # (Auto) 0.7, Monocytes # (Auto) 0.3, Eosinophils # (Auto) 0.0, Basophils # (Auto) 0.0, Immature Granulocyte # (Auto) 0.1, Sodium Level 137, Potassium Level 4.2, Chloride Level 107, Carbon Dioxide Level 21, Anion Gap 9, Blood Urea Nitrogen 15 , Creatinine 0.72, Estimat Glomerular Filtration Rate 86, BUN/Creatinine Ratio 21, Glucose Level 123, Calcium Level 8.2, Corrected Calcium 9.4, Total Bilirubin 0.8, Aspartate Amino Transf (AST/SGOT) 69, Alanine Aminotransferase (ALT/SGPT) 91, Alkaline Phosphatase 54, Total Protein 5.4, Albumin 2.5 03/24/22 05:10: Blood Gas Puncture Site LEFT RADIAL, Blood Gas Patient Temperature 37, Arterial Blood pH 7.39, Arterial Blood Partial Pressure CO2 36, Arterial Blood Partial Pressure O2 109, Arterial Blood HCO3 21, Arterial Blood Total CO2 22.2, Arterial Blood Oxygen Saturation 99, Arterial Blood Base Excess -3.0, Beto Test YES-POS, Blood Gas Ventilator Setting NO, Blood Gas Inspired Oxygen N 03/24/22 11:36: Glucometer 124 03/24/22 15:34: Glucometer 138 Discharge Home Medications: Active Scripts Active Reported Entresto 24 mg-26 mg Tablet (Sacubitril/Valsartan) 24 Mg-26 Mg Tablet 1 Tab PO BID Ofev (Nintedanib Esylate) 100 Mg Capsule 100 Mg PO BID Culturelle (Lactobacillus Rhamnosus GG) 10 Billion Cell Capsule 1 Each PO DAILY Oma Allergy (Fexofenadine HCl) 180 Mg Tablet 180 Mg PO DAILY PRN Vitamin D3 (Cholecalciferol (Vitamin D3)) 50 Mcg (2000 Unit) Capsule 50 Mcg PO DAILY Calcium (Calcium Carbonate) 600 Mg Calcium (1500 Mg) Tablet 600 Mg PO BID Biotin 10,000 Mcg Capsule 10,000 Mcg PO DAILY Humira (Adalimumab) 20 Mg/0.2 Ml Syringekit 20 Mg SQ WED Proventil Hfa (Albuterol Sulfate) 90 Mcg Hfa.aer.ad 2 Puff Q6H PRN Symbicort 160-4.5 Mcg Inhaler (Budesonide/Formoterol Fumarate) 160 Mcg-4.5 Mcg/Actuation Hfa.aer.ad 2 Puff INH BID Ondansetron Odt (Ondansetron) 4 Mg Tab.rapdis 4 Mg PO Q6H PRN Albuterol Sulfate 2.5 Mg/0.5 Ml Vial.neb 2.5 Mg INH HS Albuterol Sulfate 2.5 Mg/3 Ml (0.083 %) Vial.neb 3 Ml NEB Q6H PRN Bumetanide 2 Mg Tablet 2 Mg PO DAILY Klor-Con M10 (Potassium Chloride) 10 Meq Tab.er.prt 10 Meq PO BID Estradiol Tablet (Estradiol) 0.5 Mg Tablet 0.5 Mg PO DAILY Prednisone 10 Mg Tab 10 Mg PO BID Incruse Ellipta (Umeclidinium [place]) 62.5 Mcg/Actuation Blst.w.dev 1 Puff INH HS Hydrocort-Pramoxine 2.5-1% Crm (Hydrocortisone/Pramoxine) 2.5 %-1 % Cream.appl 1 Applic RC BID PRN Pregabalin 100 Mg Capsule 200 Mg PO HS TAKES 2 (100MG) CAPS Pregabalin 100 Mg Capsule 100 Mg PO DAILY Acetaminophen 500 Mg Tablet 1,000 Mg PO Q6H PRN Cyanocobalamin Injection (Cyanocobalamin) 1,000 Mcg/Ml Inj 1,000 Mcg IM MONTHLY Omeprazole 40 Mg Capsule.dr 40 Mg PO BID Metoprolol Succinate 50 Mg Tab.er.24h 50 Mg PO BID Instructions to patient/family Please see electronic discharge instructions given to patient. Diagnosis/Problems Diagnosis/Problems (1) COVID-19 (2) Influenza Status: Acute (3) Interstitial lung disease Status: Chronic (4) General weakness Status: Acute (5) Adrenal insufficiency (6) Chronic respiratory failure Status: Chronic YOSELIN GUTIERREZ DO Mar 25, 2022 05:12
[2022-03-25] MEDS ORDERED: TROUGH ORDER-PHARMACY XX ONE (10:00)
[2022-03-27] MEDS ORDERED: SCOPOLAMINE PATCH REMOVAL TP SCH (19:59)
== END 2022-03-25 00:30 | disposition expired | DRG 871 ==
LOC: 4TH 12:30 → CSD 03-22 00:33 → ICU 03-22 13:41
PROVIDERS: ADMIT Internal Medicine; ATTEND Internal Medicine
PROC: 8E0ZXY6 Isolation (ICD-10-PCS; principal; 2022-03-21)
DX: A41.89 Other specified sepsis (principal); J12.82 Pneumonia due to coronavirus disease 2019; U07.1 COVID-19; J15.9 Unspecified bacterial pneumonia; J96.20 Acute and chronic respiratory failure, unspecified whether with hypoxia or hypercapnia; K72.00 Acute and subacute hepatic failure without coma; F19.20 Other psychoactive substance dependence, uncomplicated; I42.9 Cardiomyopathy, unspecified; E27.40 Unspecified adrenocortical insufficiency; I47.1 Supraventricular tachycardia; J10.1 Influenza due to other identified influenza virus with other respiratory manifestations; I50.9 Heart failure, unspecified; E11.9 Type 2 diabetes mellitus without complications; Z66 Do not resuscitate; Z51.5 Encounter for palliative care; K21.9 Gastro-esophageal reflux disease without esophagitis; R53.81 Other malaise; G89.29 Other chronic pain; M54.9 Dorsalgia, unspecified; Z87.891 Personal history of nicotine dependence; J43.9 Emphysema, unspecified; E78.00 Pure hypercholesterolemia, unspecified; Z99.81 Dependence on supplemental oxygen; I27.20 Pulmonary hypertension, unspecified; E87.70 Fluid overload, unspecified; E87.6 Hypokalemia; I49.3 Ventricular premature depolarization; I48.91 Unspecified atrial fibrillation
CPT/HCPCS: 36415; 36569; 36600; 71045; 76937; 80053; 80202; 82805; 82947; 82977; 83605; 85025; 93005; 93308; 94640; 94664; 94760